=== PATIENT | male | born 1940 | race Caucasian/White ===

== ENCOUNTER 2020-07-21 11:53 | Outpatient (REF) | payer MEDICARE, SELFPAY ==
[2020-07-21 14:36] LABS: MANUAL DIFF FLAG NO
[2020-07-21 14:40] LABS: Basophils Percent Auto 0.8 % (0-2); Eosinophils Absolute Auto 0.1 X10*3/uL (0.0-0.4); Eosinophils Percent Auto 2.4 % (0-4); Hematocrit 42.6 % (42-52); Hemoglobin 14.3 g/dl (14.0-18.0); Imm Gran Abs Auto 0.03 X10*3/uL (0.00-0.03); Imm Gran Pct Auto 0.6 % (0.0-0.4); Immature Retic Fraction 14.2 % (2.3-13.4); Lymphocytes Absolute Auto 1.8 X10*3/uL (1.2-4.9); Lymphocytes Percent Auto 35.7 % (20-40); Mean Corpuscular HGB Conc 33.6 g/dl (31.0-36.0); Mean Corpuscular Hemoglobin 32.9 pg (27.0-33.0); Mean Corpuscular Volume 98.2 fL (80-98); Mean Platelet Volume 11.1 fL (9.4-12.4); Monocytes Absolute Auto 0.4 X10*3/uL (0.1-1.2); Monocytes Percent Auto 7.3 % (2-11); Neutrophils Absolute Auto 2.7 X10*3/uL (2.0-8.3); Neutrophils Percent Auto 53.2 % (45-73); Platelet Count 184 X10*3/uL (160-400); Red Blood Count 4.34 X10*6/uL (4.60-5.80); Red Cell Distribution Width 17.8 % (11.0-16.0); Reticulocyte Percent 1.5 % (0.5-1.8); Reticulocytes Absolute 0.064 X10*6/uL (0.026-0.095); White Blood Count 5.1 X10*3/uL (4.8-10.8)
[2020-07-21 15:19] LABS: Alanine Aminotransferase 23 U/L (0-40); Albumin Level 4.6 g/dL (3.5-5.0); Alkaline Phosphatase 60 U/L (39-117); Anion Gap 13 (12-20); Aspartate Amino Transferase 19 U/L (5-37); Bilirubin Total 0.8 mg/dL (0.0-1.0); Blood Urea Nitrogen 21 mg/dL (9-16); Calcium 9.3 mg/dL (8.4-10.2); Carbon Dioxide 32 mmol/L (22-29); Chloride 99 mmol/L (96-108); Cholesterol 164 mg/dL; Estimated Glomerular Filt Rate > 60; Glucose Fasting 96 mg/dL (60-99); HDL Cholesterol 37 mg/dL; Iron 65 mcg/dL (45-160); LDL Cholesterol Calculated 103 mg/dl; Percent Iron Saturation 18 % (15-50); Phosphorus 2.9 mg/dL (2.7-4.5); Potassium 4.2 mmol/l (3.3-5.1); Sodium 140 mmol/L (135-145); Total Iron Binding Capacity 352 mcg/dL (228-428); Total Protein 7.7 g/dL (6.5-8.0); Triglycerides 124 mg/dL; Unsaturated Iron Binding 287 ug/dL
[2020-07-21 15:37] LABS: Vitamin B12 731 pg/mL (200-900)
[2020-07-21 15:51] LABS: Ferritin 102 ng/mL (20-250); PSA,Total (Free>4and<10) < 0.05 ng/mL (0.00-4.00); T4 Thyroxine 7.2 ug/dL (4.5-12.0)
[2020-07-22 08:36] LABS: HBsAGNum1 0.16 S/CO (0.00-0.99); Hepatitis B Surface Antigen Negative (Negative)
[2020-07-22 09:27] LABS: HBS Num1 0.43 mIU/mL (0-7.99); HBc Num1 0.23 S/CO (0.00-0.79); Hepatitis B Core Antibody Nonreactive (Nonreactive); ~HepC Num1 0.15 S/CO (0.00-0.79); ~Hepatitis B Surface Antibody NONREACTIVE (Nonreactive); ~Hepatitis C Antibody Nonreactive (Nonreactive)
[2020-07-29 00:26] LABS: PSA, Ultra Sensitive <0.02 ng/mL
== END 2020-07-21 11:54 | disposition home or self-care (01) ==
LOC: HO.10HDL 11:53
PROVIDERS: Absent Provider Urology; Visit Provider Internal Medicine
DX: K21.9 Gastro-esophageal reflux disease without esophagitis (principal); F41.9 Anxiety disorder, unspecified; I10 Essential (primary) hypertension; K22.70 Barrett's esophagus without dysplasia; D64.9 Anemia, unspecified; R94.5 Abnormal results of liver function studies
CPT/HCPCS: 36415; 80053; 80061; 82607; 82728; 82746; 83540; 83735; 84100; 84153; 84436; 85025; 85045; 86704; 86706; 86803; 87340

== ENCOUNTER 2021-07-22 11:17 | Outpatient (REF) | payer MEDICARE, SELFPAY ==
[2021-07-22 14:02] LABS: MANUAL DIFF FLAG NO
[2021-07-22 14:05] LABS: Basophils Absolute Auto 0.1 X10*3/uL (0.0-0.2); Basophils Percent Auto 0.9 % (0-2); Eosinophils Absolute Auto 0.2 X10*3/uL (0.0-0.4); Eosinophils Percent Auto 3.1 % (0-4); Hematocrit 40.7 % (42-52); Hemoglobin 13.5 g/dl (14.0-18.0); Imm Gran Abs Auto 0.01 X10*3/uL (0.00-0.03); Imm Gran Pct Auto 0.2 % (0.0-0.4); Lymphocytes Absolute Auto 2.1 X10*3/uL (1.2-4.9); Mean Corpuscular HGB Conc 33.2 g/dl (31.0-36.0); Mean Corpuscular Hemoglobin 32.7 pg (27.0-33.0); Mean Corpuscular Volume 98.5 fL (80-98); Mean Platelet Volume 10.6 fL (9.4-12.4); Monocytes Absolute Auto 0.5 X10*3/uL (0.1-1.2); Monocytes Percent Auto 8.3 % (2-11); Neutrophils Absolute Auto 2.7 X10*3/uL (2.0-8.3); Neutrophils Percent Auto 49.5 % (45-73); Platelet Count 192 X10*3/uL (160-400); Red Blood Count 4.13 X10*6/uL (4.60-5.80); Red Cell Distribution Width 17.4 % (11.0-16.0); White Blood Count 5.4 X10*3/uL (4.8-10.8)
[2021-07-22 14:44] LABS: Alanine Aminotransferase 28 U/L (0-40); Albumin Level 4.5 g/dL (3.5-5.0); Alkaline Phosphatase 59 U/L (39-117); Anion Gap 15 (12-20); Aspartate Amino Transferase 24 U/L (5-37); Bilirubin Total 0.8 mg/dL (0.0-1.0); Blood Urea Nitrogen 19 mg/dL (9-16); Calcium 9.2 mg/dL (8.4-10.2); Carbon Dioxide 29 mmol/L (22-29); Chloride 99 mmol/L (96-108); Cholesterol 172 mg/dL; Estimated Glomerular Filt Rate > 60; Glucose Random 96 mg/dL (60-115); HDL Cholesterol 38 mg/dL; LDL Cholesterol Calculated 110 mg/dl; Potassium 3.3 mmol/L (3.3-5.1); Sodium 140 mmol/L (135-145); Total Protein 7.6 g/dL (6.5-8.0); Triglycerides 121 mg/dL
[2021-07-22 14:56] LABS: Folate > 20.0 ng/mL (> or = 4.0); Vitamin B12 880 pg/mL (200-900)
[2021-07-22 15:07] LABS: Free T4 (Free Thyroxine) 1.06 ng/dL (0.71-1.85); Thyroid Stimulating Hormone 2.01 uIU/mL (0.32-4.0); Vitamin D 25-OH Total 53.8 ng/mL (>30)
[2021-07-27 18:01] LABS: PSA, Ultra Sensitive <0.02 ng/mL
== END 2021-07-22 11:18 | disposition home or self-care (01) ==
LOC: HO.10HDL 11:17
PROVIDERS: Absent Provider Urology; Visit Provider Internal Medicine
DX: Z12.5 Encounter for screening for malignant neoplasm of prostate (principal); E78.00 Pure hypercholesterolemia, unspecified; K22.70 Barrett's esophagus without dysplasia; Z85.46 Personal history of malignant neoplasm of prostate
CPT/HCPCS: 36415; 80053; 80061; 82306; 82607; 82746; 83735; 84153; 84439; 84443; 85025

== ENCOUNTER 2022-02-22 19:13 | Emergency (ER) | payer MEDICARE, SELFPAY ==
--- NOTE | ~2022-02-22 | CT_ITS ---
EXAMINATION: CT ABDOMEN AND PELVIS WITHOUT CONTRAST CLINICAL INFORMATION: Abdominal pain, question diverticulitis COMPARISON: None TECHNIQUE: Multidetector volumetric imaging was performed from the superior aspect of the liver through the pubic symphysis. Sagittal and coronal reformatted images were obtained on the technologist's workstation. This CT examination was performed using dose optimization techniques as appropriate, variously including the following: *Automated exposure control *Adjustment of mA and/or kV according to patient size (this includes techniques or standardized protocols for targeted exams where dose is matched to indication/reason for exam; i.e. extremities or head) *Use of iterative reconstruction technique DLP: 642 mGy-cm FINDINGS: LUNG BASES: The visualized lung bases are unremarkable. LIVER, GALLBLADDER, AND BILIARY TREE: There is mild hypoattenuation of the liver suggesting steatosis. No intrahepatic biliary ductal dilatation. The gallbladder is unremarkable with no evidence of radiopaque gallstones, gallbladder wall thickening, or obvious pericholecystic inflammatory changes. PANCREAS: Unremarkable. SPLEEN: Unremarkable. ADRENAL GLANDS: Unremarkable. KIDNEYS AND URETERS: No hydronephrosis or obstructing calculus bilaterally. There are a few scattered tiny bilateral renal calculi. Mildly hyperdense exophytic lesion noted off the right upper pole measuring approximately 1.5 cm, not cystic by CT criteria. There is a mixed hyperdense and hypodense lesion off the posterior right kidney measuring 2.1 cm which is at least partially cystic. Subcentimeter lesion off the lower left kidney measures greater than simple fluid density. BLADDER: Unremarkable. GASTROINTESTINAL TRACT: No evidence of bowel obstruction. There is colonic diverticulosis with focal wall thickening and surrounding stranding in the proximal sigmoid colon, most consistent with diverticulitis. No pericolonic abscess or free air is seen. The appendix is unremarkable. No free fluid identified. ABDOMINAL WALL: Small fat-containing left inguinal hernia. LYMPH NODES: Normal. VASCULAR: There is atherosclerotic calcification along the aorta and iliac arteries. PELVIC VISCERA: Unremarkable. OSSEOUS STRUCTURES: Scattered degenerative changes are present in the spine. CT/CT abdomen pelvis wo con IMPRESSION: 1. Diverticulitis of the proximal sigmoid colon. No pericolonic abscess or free air identified. Correlation with recent or followup colonoscopy is advised to exclude an underlying mass lesion. 2. Few renal lesions as described above, not cystic by CT criteria. These may reflect proteinaceous/hemorrhagic cysts, and evaluation with nonemergent renal protocol MRI is advised to exclude underlying mass.
[2022-02-22 19:22] VITALS: BP 142/81; PULSE 102; RESP 18; TEMP 36.9; O2SAT 98; BMI 29.6
[2022-02-22 19:34] LABS: MANUAL DIFF FLAG NO
[2022-02-22 19:36] LABS: Basophils Absolute Auto 0.1 X10*3/uL (0.0-0.2); Basophils Percent Auto 0.4 % (0-2); Eosinophils Absolute Auto 0.2 X10*3/uL (0.0-0.4); Eosinophils Percent Auto 1.2 % (0-4); Hematocrit 39.7 % (42.0-52.0); Hemoglobin 13.1 g/dl (14.0-18.0); Imm Gran Abs Auto 0.05 X10*3/uL (0.00-0.03); Imm Gran Pct Auto 0.4 % (0.0-0.4); Lymphocytes Absolute Auto 2.7 X10*3/uL (1.2-4.9); Lymphocytes Percent Auto 20.7 % (20-40); Mean Corpuscular Hemoglobin 33.2 pg (27.0-33.0); Mean Corpuscular Volume 100.5 fL (80.0-98.0); Monocytes Percent Auto 7.8 % (2-11); Neutrophils Absolute Auto 8.9 x10*3/uL (2.0-8.3); Neutrophils Percent Auto 69.5 % (45-73); Platelet Count 227 X10*3/uL (160-400); Red Blood Count 3.95 X10*6/uL (4.60-5.80); Red Cell Distribution Width 18.2 % (11.0-16.0); White Blood Count 12.9 X10*3/uL (4.8-10.8)
[2022-02-22 19:52] LABS: Anion Gap 16 (12-20); Blood Urea Nitrogen 17 mg/dL (9-16); Calcium 9.6 mg/dL (8.4-10.2); Carbon Dioxide 26 mmol/L (22-29); Chloride 103 mmol/L (96-108); Creatinine Clr Calc Pharmacy 59.9; Estimated Glomerular Filt Rate > 60; Glucose Random 103 mg/dL (60-115); Lipase 42 U/L (8-78); Potassium 3.5 mmol/L (3.3-5.1); Sodium 141 mmol/L (135-145)
[2022-02-23 03:05] VITALS: BP 142/73; PULSE 82; RESP 16; O2SAT 97
--- NOTE | 2022-02-23 04:51 | ED_ITS ---
HPI - Abdominal Pain General Chief Complaint: Abdominal Pain Stated Complaint: CT scan and blood test requested from PC Time Seen by Provider: 02/23/22 04:13 Source: patient and family Mode of arrival: ambulatory History of Present Illness HPI narrative: 81-year-old male with history of hypertension and prior diverticulitis presents with increasing lower abdominal pain that is crampy in nature but has not been associated with nausea, vomiting, fever, chills and patient states that feels just like his last episode of diverticulitis. He denies any urinary pain/burning/frequency. Related Data Home Medications Medication Instructions Recorded Confirmed ascorbate calcium (vitamin C) 500 500 mg PO DAILY 08/03/20 02/03/22 mg tablet cholecalciferol (vitamin D3) 25 25 mcg PO DAILY 08/03/20 02/03/22 mcg (1,000 unit) capsule ferrous sulfate 325 mg (65 mg 325 mg PO DAILY 08/03/20 02/03/22 iron) tablet (Feosol) magnesium oxide 500 mg capsule 500 mg PO DAILY 08/03/20 02/03/22 vit C,E,zinc,copper-uwbak7e 250 1 cap PO DAILY 08/03/20 02/03/22 mg-lutein 5 mg-zeaxanthin 1 mg capsule (Ocuvite Adult 50 Plus) vitamin B complex 1 tab PO DAILY 08/03/20 02/03/22 Previous Rx's Medication Instructions Recorded lisinopril 20 1 tab PO DAILY 90 Days #90 tab 08/03/21 mg-hydrochlorothiazide 25 mg tablet lisinopril 20 mg tablet 20 mg PO DAILY 90 Days #90 tab 10/22/21 omeprazole 20 mg capsule,delayed 20 mg PO QAM #90 cap 10/22/21 release lorazepam 0.5 mg tablet 0.5 mg PO BEDTIME PRN 90 Days #30 02/22/22 tab amoxicillin 875 mg-potassium 1 tab PO Q12H 10 Days #20 tab 02/23/22 clavulanate 125 mg tablet Allergies Allergy/AdvReac Type Severity Reaction Status Date / Time sulfamethoxazole Allergy Intermediate Anxiety Verified 02/22/22 19:22 [From Bactrim] trimethoprim [From Bactrim] Allergy Intermediate Anxiety Verified 02/22/22 19:22 Sulfa (Sulfonamide Allergy Unknown Unknown Verified 02/22/22 19:21 Antibiotics) Review of Systems Review of Systems Pertinent positives and negatives as stated in HPI 10 point review of systems is otherwise negative. [facility] Past Medical History Source: nursing notes reviewed Medical History Anemia Anxiety Sandoval's esophagus Finger fracture, right GERD (gastroesophageal reflux disease) History of renal calculi Hypertension Prostate cancer Surgical History History of prostatectomy History of tonsillectomy Social History Social History Housing: House Alcohol intake: current Patient Tobacco Use Status: Former Tobacco user Tobacco use type: Cigarette Years Smoked: quit 1999 e-Cigarette/Vaping Use: Never Used Second Hand Smoke Exposure: No Advance Directives: No Current occupational status: retired Physical Exam ED Vital Signs: Vital Signs - 24 hr 02/22/22 19:22 02/23/22 03:05 Temperature 98.4 F Pulse Rate 102 H 82 Respiratory Rate 18 16 Blood Pressure 142/81 H 142/73 H Pulse Oximetry 98 97 BMI result Body Mass Index 29.6 VITAL SIGNS: Reviewed. GENERAL: Well developed, well nourished, in no acute distress. HEAD: Normocephalic/atraumatic EYES: PERRLA, EOMI EARS: Ext canals without abnormality OROPHARYNX: no oral lesions noted, posterior pharynx clear LUNGS: Normal breath sounds. No adventitious sounds or accessory muscle use. SpO2<98> CARDIOVASCULAR: Regular rate and rhythm without noted murmurs ABDOMEN: Soft, lower abdominal discomfort without rebound, non-distended with bowel sounds. MUSCULOSKELETAL: No tenderness, deformities, or effusions noted on gross i nspection. EXTREMITIES: No cyanosis, clubbing or edema. SKIN: Inspection of the skin reveals no rashes NEUROLOGIC: Alert and oriented x 4. Strength and sensation to light touch were grossly intact x 4. Course Course Course Narrative: 81-year-old male with history and clinical presentation suggestive of possible renal colic, diverticulitis, UTI. Review of all investigations consistent with diverticulitis. Patient received initial antibiotics here in the emergency room and then was discharged home with remaining course and instructions to follow-up with his primary care provider. MDM - Abdominal Pain Lab Data Result diagrams: 02/22/22 19:28 02/22/22 19:29 Labs: Lab Results 02/22/22 02/22/22 Range/Units 19:28 19:29 WBC 12.9 H (4.8-10.8) X10*3/uL RBC 3.95 L (4.60-5.80) X10*6/uL Hgb 13.1 L (14.0-18.0) g/dl Hct 39.7 L (42.0-52.0) % MCV 100.5 H (80.0-98.0) fL MCH 33.2 H (27.0-33.0) pg MCHC 33.0 (31.0-36.0) g/dl RDW 18.2 H (11.0-16.0) % Plt Count 227 (160-400) X10*3/uL MPV 10.0 (9.4-12.4) fL Immature Gran % (Auto) 0.4 (0.0-0.4) % Neut % (Auto) 69.5 (45-73) % Lymph % (Auto) 20.7 (20-40) % [place] % (Auto) 7.8 (2-11) % Eos % (Auto) 1.2 (0-4) % Baso % (Auto) 0.4 (0-2) % Lymph # (Auto) 2.7 (1.2-4.9) X10*3/uL [place] # (Auto) 1.0 (0.1-1.2) X10*3/uL Eos # (Auto) 0.2 (0.0-0.4) X10*3/uL Baso # (Auto) 0.1 (0.0-0.2) X10*3/uL Abs Immat Gran (auto) 0.05 H (0.00-0.03) X10*3/uL Absolute Neuts (auto) 8.9 H (2.0-8.3) x10*3/uL Absolute Nucleated RBC 0.000 (0.0-0.012) X10*3/uL Nucleated RBC % (auto) 0.0 (0.0-0.2) /100WBC Sodium 141 (135-145) mmol/L Potassium 3.5 (3.3-5.1) mmol/L Chloride 103 (96-108) mmol/L Carbon Dioxide 26 (22-29) mmol/L Anion Gap 16 (12-20) BUN 17 H (9-16) mg/dL Creatinine 1.08 (0.5-1.4) mg/dL Estim Creat Clear Calc 59.9 Estimated GFR > 60 Random Glucose 103 (60-115) mg/dL Calcium 9.6 (8.4-10.2) mg/dL Lipase 42 (8-78) U/L Discharge Plan Discharge Clinical Impression: Diverticulitis, Hypertension Patient Disposition: Home, Self-Care Instructions: Diverticulitis (ED), Diverticulitis Diet (ED), DASH Eating Plan (ED) Additional Instructions: 1. Resume all home medications as prescribed. 2. Complete the entire course of antibiotics as prescribed, you have also been provided with antinause medication. 3. Follow-up with your primary care provider in the next 2-3 days for re- evaluation and remember that you will need to follow-up with GI in 6 weeks after resolution of your diverticulitis. Return to the ER for worsening symptoms. Prescriptions: New amoxicillin-pot clavulanate 875-125 mg tablet 1 tab PO Q12H 10 Days Qty: 20 0RF No Action omeprazole 20 mg capsule,delayed release(DR/EC) 20 mg PO QAM Qty: 90 1RF lisinopril 20 mg tablet 20 mg PO DAILY 90 Days Qty: 90 3RF lorazepam 0.5 mg tablet 0.5 mg PO BEDTIME PRN (Reason: anxiety) 90 Days Qty: 30 1RF lisinopril-hydrochlorothiazide 20-25 mg tablet 1 tab PO DAILY 90 Days Qty: 90 3RF cholecalciferol (vitamin D3) 25 mcg (1,000 unit) capsule 25 mcg PO DAILY 0RF ascorbate calcium (vitamin C) 500 mg tablet 500 mg PO DAILY 0RF ferrous sulfate [Feosol] 325 mg (65 mg iron) tablet 325 mg PO DAILY 0RF magnesium oxide 500 mg capsule 500 mg PO DAILY 0RF Ocuvite Adult 50 Plus 250-5-1 mg capsule 1 cap PO DAILY 0RF vitamin B complex Tablet 1 tab PO DAILY 0RF Referrals: Tor Song [Primary Care Provider] -
[2022-02-23 06:00] VITALS: BP 127/70; PULSE 77; RESP 16; TEMP 36.7; O2SAT 98
[2022-02-23] MEDS: Acetaminophen 325 MG TABLET 975 MG PO (06:03)
[2022-02-23] MEDS: Amoxicillin/Potassium Clav 875 MG TABLET PO (06:03)
[2022-02-23] MEDS: Ketorolac Tromethamine 15 MG/ML VIAL IM (06:04)
== END 2022-02-23 06:09 | disposition home or self-care (01) ==
PROVIDERS: Emergency Provider Student in an Organized Health Care Education/Training Program; PCP Internal Medicine
DX: K57.92 Diverticulitis of intestine, part unspecified, without perforation or abscess without bleeding (principal); I10 Essential (primary) hypertension
CPT/HCPCS: 36415; 74176; 80048; 83690; 85025; 96372; 99283; 99284; J1885

== ENCOUNTER 2022-06-07 12:43 | Outpatient (REF) | payer MEDICARE, SELFPAY ==
--- NOTE | ~2022-06-07 | MR_ITS ---
EXAMINATION: MRI ABDOMEN WITH AND WITHOUT CONTRAST CLINICAL INFORMATION: Further evaluation of renal lesions. COMPARISON: CT abdomen/pelvis 02/23/2022. TECHNIQUE: Multiple routine MRI sequences through the abdomen were obtained before and after the uneventful administration of 9 mL Gadavist gadolinium-based IV contrast. FINDINGS: LUNG BASES: Lung bases are clear. LIVER: There is signal loss in the opposed phase dual echo images suggesting the presence of hepatic steatosis. Otherwise, the liver is normal in size and shape. No focal liver lesions are noted. GALLBLADDER AND BILIARY TREE: Gallbladder normal. No intrahepatic or extrahepatic biliary ductal dilation. SPLEEN: Normal. Normal size. No focal lesion. PANCREAS: Normal. ADRENAL GLANDS: Normal. No adrenal mass. KIDNEYS AND URETERS: Symmetric nephrograms. No hydronephrosis. No perinephric fat stranding. There are multiple T2 bright avascular bilateral simple cysts for which no imaging follow-up is recommended. In the upper right kidney there is a 1.7 cm well-circumscribed homogeneously T1 bright proteinaceous/hemorrhagic cyst, (11:24). There are couple of additional smaller homogeneously T1 bright proteinaceous/hemorrhagic cysts along the posterior surface of the upper to mid right kidney (11:28 and 11:35). In the posteromedial mid right kidney, there is a well-defined 2.2 cm cystic appearing observation with heterogeneous T1 content, more hyperintense anteriorly (11:45), a thin internal septation and questionable thickening of the posterior wall measuring up to 0.3 cm in thickness (102:51). In the lower left kidney, there is a 0.9 cm homogeneously T1 bright hemorrhagic/proteinaceous cyst (11:63). In the posterior lower left kidney there is a 1.2 cm low T2 signal observation (4:18), with slight homogeneous T1 hyperintensity and no definite enhancement, likely representing as well a proteinaceous/hemorrhagic cyst. GASTROINTESTINAL: The imaged bowel is within normal limits. LYMPHOVASCULAR STRUCTURES: Normal caliber aorta. IVC patent. No pathologically enlarged abdominal or retroperitoneal lymphadenopathy by short axis size criteria. OSSEOUS STRUCTURES: No acute or suspicious osseous abnormalities. Degenerative changes of the spine. MR/MR kidney wo/w con IMPRESSION: In the posteromedial surface of the mid right kidney there is a cystic-appearing observation with heterogeneous T1 bright content and some equivocal thickening of the posterior wall but no measurable enhancing components. This would be classified as a Bosniak 2F lesion and a follow-up MRI of the abdomen is recommended in 6-12 months to reassess. Other renal lesions are classified as Bosniak 1 and Bosniak 2 cyst for which no imaging follow-up is recommended. Hepatic steatosis.
== END 2022-06-07 12:44 | disposition home or self-care (01) ==
LOC: HO.MRI 12:43
PROVIDERS: Visit Provider Internal Medicine
DX: N28.9 Disorder of kidney and ureter, unspecified (principal)
CPT/HCPCS: 74181; A9585

== ENCOUNTER 2022-08-10 07:23 | Day surgery (SDC) | payer MEDICARE, SELFPAY ==
--- NOTE | 2022-08-09 13:46 | P.CONAN_ITS ---
Documented by User: Dolores Harrison NP 08/09/22 13:47 HPI - Anesthesia Eval Consult details Narrative: 82yo M for Colonoscopy PMFSH Active Problems Active Problems: All Active Problems (Updated 06/16/22 @ 19:00 by Ruby Luna MD) Renal lesion (Acute) Diverticulitis (Acute) Prostate cancer (Acute) Anemia (Acute) Carpal tunnel syndrome (Acute) Medicare annual wellness visit, subsequent (Acute) Hand numbness (Acute) Generalized anxiety disorder (Acute) Hypokalemia (Acute) Sciatic leg pain (Acute) Fatty liver (Acute) Hypertension (Acute) Sandoval's esophagus (Acute) GERD (gastroesophageal reflux disease) (Acute) Past Medical History Medical History Anemia Anxiety Finger fracture, right History of renal calculi Surgical History Surgical History History of prostatectomy History of tonsillectomy Social History Social History Housing: House Alcohol intake: current Patient Tobacco Use Status: Former Tobacco user Quit Date: 20 years ago Tobacco use type: Cigarette Years Smoked: quit 1999 e-Cigarette/Vaping Use: Never Used Second Hand Smoke Exposure: No Use of substances other than those prescribed or required for medical reasons: Yes Substance Use Type Other:: cbd gummies for sleep - medical card Are you DNR?: No Advance Directives: No Advance Directives Information Provided: Yes Current occupational status: retired Cognitive needs: No Hearing needs: No Vision needs: No Meds Allergies Allergy/AdvReac Type Severity Reaction Status Date / Time sulfamethoxazole Allergy Intermediate Anxiety Verified 03/21/22 15:44 [From Bactrim] trimethoprim [From Bactrim] Allergy Intermediate Anxiety Verified 03/21/22 15:44 Sulfa (Sulfonamide Allergy Unknown Unknown Verified 03/21/22 15:44 Antibiotics) Home Medications Medication Instructions Recorded Confirmed Last Taken Type ascorbate calcium (vitamin C) 500 500 mg PO DAILY 08/03/20 03/21/22 Unknown History mg tablet cholecalciferol (vitamin D3) 25 25 mcg PO DAILY 08/03/20 03/21/22 Unknown History mcg (1,000 unit) capsule ferrous sulfate 325 mg (65 mg 325 mg PO DAILY 08/03/20 03/21/22 Unknown History iron) tablet (Feosol) magnesium oxide 500 mg capsule 500 mg PO DAILY 08/03/20 03/21/22 Unknown History vit C,E,zinc,copper-[id number] 250 1 cap PO DAILY 08/03/20 03/21/22 Unknown History mg-lutein 5 mg-zeaxanthin 1 mg capsule (Ocuvite Adult 50 Plus) vitamin B complex 1 tab PO DAILY 08/03/20 03/21/22 Unknown History Exam Exam Date and Time: August 09, 2022 134 Pertinent Lab Results Pertinent Lab Results: Laboratory Tests 02/22/22 02/22/22 19:28 19:29 WBC 12.9 H Hgb 13.1 L Hct 39.7 L Plt Count 227 Sodium 141 Potassium 3.5 Chloride 103 Carbon Dioxide 26 BUN 17 H Creatinine 1.08 Assessment and Plan Assessment Anesthesia Assessment: Chart Reviewed Documented by User: Taye Marte MD 08/10/22 08:40 [facility] Past Medical History Medical History Anemia Anxiety Finger fracture, right History of renal calculi Family History Family history of problems with anesthesia: No Surgical History Surgical History History of prostatectomy History of tonsillectomy History of Problems with Anesthesia: No Social History Social History Housing: House Alcohol intake: current Patient Tobacco Use Status: Former Tobacco user Quit Date: 20 years ago Tobacco use type: Cigarette Years Smoked: quit 1999 e-Cigarette/Vaping Use: Never Used Second Hand Smoke Exposure: No Use of substances other than those prescribed or required for medical reasons: Yes Substance Use Type Other:: cbd gummies for sleep - medical card Are you DNR?: No Advance Directives: No Advance Directives Information Provided: Yes Current occupational status: retired Cognitive needs: No Hearing needs: No Vision needs: No Meds Allergies Allergy/AdvReac Type Severity Reaction Status Date / Time sulfamethoxazole Allergy Intermediate Anxiety Verified 03/21/22 15:44 [From Bactrim] trimethoprim [From Bactrim] Allergy Intermediate Anxiety Verified 03/21/22 15:44 Sulfa (Sulfonamide Allergy Unknown Unknown Verified 03/21/22 15:44 Antibiotics) Home Medications Medication Instructions Recorded Confirmed Last Taken Type ascorbate calcium (vitamin C) 500 500 mg PO DAILY 08/03/20 03/21/22 Unknown History mg tablet cholecalciferol (vitamin D3) 25 25 mcg PO DAILY 08/03/20 03/21/22 Unknown History mcg (1,000 unit) capsule ferrous sulfate 325 mg (65 mg 325 mg PO DAILY 08/03/20 03/21/22 Unknown History iron) tablet (Feosol) magnesium oxide 500 mg capsule 500 mg PO DAILY 08/03/20 03/21/22 Unknown History vit C,E,zinc,copper-gfyam4s 250 1 cap PO DAILY 08/03/20 03/21/22 Unknown History mg-lutein 5 mg-zeaxanthin 1 mg capsule (Ocuvite Adult 50 Plus) vitamin B complex 1 tab PO DAILY 08/03/20 03/21/22 Unknown History Exam Airway Mallampati Class: I TM Dist: >3cm Neck ROM: Full Loose/Missing/Broken Teeth: No Heart: rrr Lungs: clear Assessment and Plan Final Anesthetic Review Family History of Problems with Anesthesia: No History of Problems with Anesthesia: No NPO: Yes ASA Class: III Final Preanesthetic Review: No Changes in Pt Med Stat, Meds/Allgs Chart Reviewed, Consent Obtained/Reviewed and Anes Risks/Benef Reviewed Patient Risk: Intermediate Procedure Risk: Low Anesthetic Plan Anesthetic Plan: MAC: Disposition: Standard PACU
[2022-08-10 07:54] VITALS: BMI 30.4
[2022-08-10 08:04] VITALS: BP 166/87; PULSE 86; RESP 18; TEMP 36.8; O2SAT 96
[2022-08-10] MEDS: Lactated Ringers 1,000 ML 100 ML IVCONT (08:22)
[2022-08-10 09:30] VITALS: BP 92/56; PULSE 80; RESP 16; TEMP 36.7; O2SAT 94
--- NOTE | 2022-08-10 09:31 | PM.OP ---
Brief Operative Note Date of Service: 08/10/22 Pre-op diagnosis: Abnormal CT of colon Post-op diagnosis: other (AVM's, Polyp, Diverticulosis) Procedure: Colonoscopy to the cecum with bx/removal of polyp Surgeon: Tor Song Anesthesia: MAC Was an Co Founder And President used for this Procedure?: No Estimated blood loss (mL): 2.0 Pathology: other (A. Ascending colon polyp) Condition: stable Disposition: PACU
[2022-08-10 09:51] VITALS: BP 111/75; PULSE 76; RESP 18; TEMP 36.5; O2SAT 96
--- NOTE | 2022-08-10 10:00 | OP_ITS ---
SURGEON: Tor Song MD INDICATIONS: The patient presents for evaluation of previous history of diverticulitis and abnormal CT scan of colon. Full consent has been obtained from him for this, including risks of bleeding and perforation. PREOPERATIVE DIAGNOSIS: Abnormal CT scan of colon. POSTOPERATIVE DIAGNOSIS: PROCEDURE PERFORMED: Colonoscopy to cecum with biopsy and removal of polyp. ESTIMATED BLOOD LOSS: COMPLICATIONS: ANESTHESIA: Monitored anesthesia care. ASSISTANTS: SPECIMENS: POSTOPERATIVE DIAGNOSES: Abnormal CT scan of colon, colon polyp, diverticulosis, angiodysplasias, internal hemorrhoids. DESCRIPTION OF PROCEDURE: The patient was placed in the left lateral decubitus position. The digital rectal exam revealed no abnormalities. The Olympus video pediatric colonoscope was entered into the rectum and advanced easily to the cecum. Once in the cecum, I did identify a cecal pouch in the appendiceal orifice and a normal-appearing ileocecal valve. The entire cecum was well visualized. There were multiple nonbleeding angiodysplasias in the cecum, which had been seen on previous exams. The remainder of the cecum appeared normal. The scope was then slowly withdrawn assessing all mucosal surfaces carefully. Preparation was excellent. In the ascending colon were nonbleeding angiodysplasias as well. There was also an approximately 4 mm polyp, which was biopsied and completely removed with a cold biopsy forceps. I did not visualize any other polyps, colitis, or angiodysplasia. There was a moderate amount of sigmoid diverticulosis. In the rectum, scope was retroflexed visualizing internal hemorrhoids, but no other pathology. The rectal mucosa appeared normal. The scope was straightened and withdrawn from the patient. He tolerated the procedure well and was returned to the recovery area in stable condition. IMPRESSION: 1. Small colon polyp. 2. Angiodysplasias. 3. Diverticulosis. 4. Internal hemorrhoids. PLAN: The results of the pathology will be checked. Given these findings and his age, I do not think, he would need any further colonoscopies from a screening standpoint. He was advised to resume his iron. He will continue his omeprazole. If things remain stable, he will see me on a p.r.n. basis. This has been discussed with his . MD TEMO Uribe/YANDELL / [id number]
== END 2022-08-10 10:19 | disposition home or self-care (01) ==
PROVIDERS: PCP Internal Medicine; Visit Provider Internal Medicine
PROC: 0DJD8ZZ Inspection of Lower Intestinal Tract, Via Natural or Artificial Opening Endoscopic (ICD-10-PCS; CPT 45378; principal; 2022-08-10 08:30)
DX: Z87.19 Personal history of other diseases of the digestive system (principal); K55.20 Angiodysplasia of colon without hemorrhage; D12.2 Benign neoplasm of ascending colon; K57.30 Diverticulosis of large intestine without perforation or abscess without bleeding; K64.8 Other hemorrhoids; K21.9 Gastro-esophageal reflux disease without esophagitis; K22.70 Barrett's esophagus without dysplasia; D64.9 Anemia, unspecified; I10 Essential (primary) hypertension; N28.9 Disorder of kidney and ureter, unspecified; Z79.899 Other long term (current) drug therapy; Z87.442 Personal history of urinary calculi; Z85.46 Personal history of malignant neoplasm of prostate; Z87.891 Personal history of nicotine dependence
CPT/HCPCS: 45380; 88305

== ENCOUNTER 2022-08-12 10:00 | Outpatient (REF) | payer MEDICARE, SELFPAY ==
[2022-08-12 10:33] LABS: MANUAL DIFF FLAG NO
[2022-08-12 10:43] LABS: Basophils Absolute Auto 0.1 X10*3/uL (0.0-0.2); Basophils Percent Auto 1.1 % (0-2); Eosinophils Absolute Auto 0.2 X10*3/uL (0.0-0.4); Eosinophils Percent Auto 3.4 % (0-4); Hematocrit 39.8 % (42.0-52.0); Hemoglobin 13.1 g/dl (14.0-18.0); Imm Gran Abs Auto 0.02 X10*3/uL (0.00-0.03); Imm Gran Pct Auto 0.4 % (0.0-0.4); Immature Retic Fraction 15.2 % (2.3-13.4); Lymphocytes Absolute Auto 1.7 X10*3/uL (1.2-4.9); Lymphocytes Percent Auto 31.1 % (20-40); Mean Corpuscular HGB Conc 32.9 g/dl (31.0-36.0); Mean Corpuscular Hemoglobin 32.2 pg (27.0-33.0); Mean Corpuscular Volume 97.8 fL (80.0-98.0); Mean Platelet Volume 9.6 fL (9.4-12.4); Monocytes Absolute Auto 0.4 X10*3/uL (0.1-1.2); Monocytes Percent Auto 7.3 % (2-11); Neutrophils Percent Auto 56.7 % (45-73); Platelet Count 172 X10*3/uL (160-400); Red Blood Count 4.07 X10*6/uL (4.60-5.80); Red Cell Distribution Width 16.9 % (11.0-16.0); Retic HGB Equivalent 32.5 pg (30.0-35.0); Reticulocyte Percent 1.4 % (0.5-1.8); Reticulocytes Absolute 0.055 X10*6/uL (0.026-0.095); White Blood Count 5.3 X10*3/uL (4.8-10.8)
[2022-08-12 12:52] LABS: Alanine Aminotransferase 33 U/L (0-40); Alkaline Phosphatase 67 U/L (39-117); Anion Gap 16 (12-20); Aspartate Amino Transferase 20 U/L (5-37); Bilirubin Total 0.3 mg/dL (0.0-1.0); Blood Urea Nitrogen 18 mg/dL (9-16); Calcium 8.9 mg/dL (8.4-10.2); Carbon Dioxide 26 mmol/L (22-29); Chloride 105 mmol/L (96-108); Cholesterol 164 mg/dL; Estimated Glomerular Filt Rate > 60; Glucose Random 90 mg/dL (60-115); HDL Cholesterol 34 mg/dL; Iron 40 mcg/dL (45-160); LDL Cholesterol Calculated 112 mg/dl; Percent Iron Saturation 11 % (15-50); Potassium 3.7 mmol/L (3.3-5.1); Sodium 143 mmol/L (135-145); Total Iron Binding Capacity 366 mcg/dL (228-428); Total Protein 7.1 g/dL (6.5-8.0); Triglycerides 90 mg/dL; Unsaturated Iron Binding 326 ug/dL
[2022-08-12 12:59] LABS: Ferritin 48 ng/mL (20-250); Free T4 (Free Thyroxine) 1.08 ng/dL (0.71-1.85); PSA,Total (Free>4and<10) < 0.10 ng/mL (0.00-4.00); Thyroid Stimulating Hormone 1.62 uIU/mL (0.32-4.0)
[2022-08-12 13:53] LABS: Folate 12.4 ng/mL (> or = 4.0); Vitamin B12 763 pg/mL (200-900)
[2022-08-12 14:00] LABS: Albumin Level 4.2 g/dL (3.5-5.0)
== END 2022-08-12 10:01 | disposition home or self-care (01) ==
LOC: HO.10HDL 10:00
PROVIDERS: Absent Provider Urology; Visit Provider Internal Medicine
DX: Z12.5 Encounter for screening for malignant neoplasm of prostate (principal); C61 Malignant neoplasm of prostate; I10 Essential (primary) hypertension; E78.00 Pure hypercholesterolemia, unspecified; D64.9 Anemia, unspecified
CPT/HCPCS: 36415; 80053; 80061; 82607; 82728; 82746; 83540; 84153; 84439; 84443; 85025; 85045

== ENCOUNTER 2022-11-24 12:25 | Outpatient (REF) | payer MEDICARE, SELFPAY ==
[2022-11-24 14:23] LABS: Blood Urea Nitrogen 16 mg/dL (9-16); Estimated Glomerular Filt Rate > 60
== END 2022-11-24 12:26 | disposition home or self-care (01) ==
LOC: HO.10HDL 12:25
PROVIDERS: Visit Provider Internal Medicine
DX: N28.9 Disorder of kidney and ureter, unspecified (principal)
CPT/HCPCS: 36415; 82565; 84520

== ENCOUNTER 2023-06-20 11:09 | Outpatient (REF) | payer MEDICARE, SELFPAY ==
[2023-06-22 05:03] LABS: Lyme Abs Screen <0.90 index
== END 2023-06-20 11:10 | disposition home or self-care (01) ==
LOC: HO.LAB 11:09
PROVIDERS: PCP Internal Medicine; Visit Provider Internal Medicine
DX: D64.9 Anemia, unspecified (principal)
CPT/HCPCS: 36415; 86617; 86618

== ENCOUNTER 2023-06-26 12:18 | Outpatient (AMB) | payer MEDICARE, SELFPAY ==
[2023-06-26 12:26] VITALS: BP 128/64; PULSE 77; O2SAT 97; BMI 30.1
--- NOTE | 2023-06-26 12:26 | A.OFFVIS_ITS ---
Intake Vital Signs 06/26/23 12:26 Height 5 ft 8 in Weight 198 lb BMI 30.1 BP 128/64 Blood Pressure Location Lt brachial Position Sitting Pulse 77 Pulse Source Pulse Oximeter Temp Source Skin Pulse Oximetry (%) 97 Oxygen Delivery Method Room Air Intake Visit Reasons: AWV Allergies sulfamethoxazole [From Bactrim] Allergy (Intermediate, Verified 06/26/23 12:27) Anxiety trimethoprim [From Bactrim] Allergy (Intermediate, Verified 06/26/23 12:27) Anxiety Sulfa (Sulfonamide Antibiotics) Allergy (Unknown, Verified 06/26/23 12:27) Unknown Medication List - Last Reconciled 06/26/23 by Ruby Luna MD ascorbate calcium (vitamin C) 500 mg PO DAILY C,E,zinc,copper [id number] 250-5-1 mg (Ocuvite Adult 50 Plus) 1 cap PO DAILY cholecalciferol (vitamin D3) 25 mcg PO DAILY ferrous sulfate (Feosol) 325 mg PO DAILY lisinopril 20 mg PO DAILY 90 days lisinopril-hydrochlorothiazide 20-25 mg 1 tab PO DAILY 90 days lorazepam 0.5 mg PO BEDTIME PRN 90 days magnesium oxide 500 mg PO DAILY omeprazole 20 mg PO QAM vitamin B complex 1 tab PO DAILY HPI AWV HPI Details 82-year-old obese male with a history of prostate cancer generalized anxiety disorder hypertension Sandoval's esophagus coming in for annual well visit. Last seen in November 2022. Patient was seen by the Ortho last month for the left knee pain which has resolved. Patient also had carpal tunnel release on the left in2022. L wrist pain - seeing ortho and advsied surgery. R CTS - will see Dr. Shea [facility] Medical History Anemia Anxiety Finger fracture, right History of renal calculi Surgical History History of prostatectomy History of tonsillectomy Family History (Updated 12/01/22 @ 13:02 by Leah Schmid CMA) Father No problems noted. Mother No problems noted. Brother Prostate cancer Daughter No problems noted. Son No problems noted. Social History (Updated 06/26/23 @ 12:46 by Ruby Luna MD) Housing: House Alcohol intake: current Patient Tobacco Use Status: Former Tobacco user Quit Date: 20 years ago Tobacco use type: Cigarette Years Smoked: quit 1999 e-Cigarette/Vaping Use: Never Used Second Hand Smoke Exposure: No Current occupational status: retired Cognitive needs: No Hearing needs: Yes Vision needs: Yes Questionnaire Medicare Wellness Checkup [age] What gender do you identify with?: male During the past 4 weeks, how much have you been bothered by emotional problems such as feeling anxious, depressed, irritable, sad or downhearted, and blue?: slightly During the past 4 weeks, has your physical & emotional health limited your social activities with family, friends, neighbors, or groups?: not at all During the past 4 weeks, how much bodily pain have you generally had?: very mild pain During the past 4 weeks, was someone available to help you if you needed & wanted help?: yes, as much as I wanted During the past 4 weeks, what was the hardest physical activity you could do for at least 2 minutes?: moderate Can you get to places out of walking distance without help? (For eg., can you travel alone on buses, taxis or drive your car?): Yes Can you go shopping for groceries or clothes without someone's help?: Yes Can you prepare your own meals?: Yes Can you do your housework without help?: Yes Because of any health problems, do you need the help of another person with your personal care needs such as eating, bathing, dressing or getting around the house?: No Can you handle your own money without help?: Yes During the past 4 weeks, how would you rate your health in general?: very good During the past 4 weeks how have things been going for you?: pretty well Are you having difficulties driving your car?: no Do you always fasten your seat belt when you are in a car?: yes, usually During past 4 weeks, have you been bothered by the following: never: Trouble eating well?, Teeth or denture problems? and Problems using the telephone?, seldom: Falling or dizzy when standing up and Tiredness or fatigue? and sometimes: Sexual problems? Have you fallen 2 or more times in the past year?: No Are you afraid of falling?: No Are you a smoker?: no During the past 4 weeks, how many drinks of wine, beer, or other alcoholic beverages did you have?: 2-5 drinks per week Do you exercise for about 20 minutes 3 or more times a week?: yes, most of the time Have you been given information to help with the following?: yes: Keeping track of your medications? and no: Hazards in your house that might hurt you? How often do you have trouble taking medicines the way you have been told to take them?: I always take medicine as prescribed How confident are you that you can control & manage most of your health problems?: very confident What is your race?: White PHQ-9 Over the last 2 weeks, how often have you been bothered by any of the following problems? 1. Little interest or pleasure in doing things: not at all 2. Feeling down, depressed, or hopeless: not at all 3. Trouble falling or staying asleep, or sleeping too much: more than half the days 4. Feeling tired or having little energy: more than half the days 5. Poor appetite or overeating: more than half the days 6. Feeling bad about yourself - or that you are a failure or have let yourself or your family down: not at all 7. Trouble concentrating on things, such as reading the newspaper or watching television: not at all 8. Moving or speaking so slowly that other people could have noticed. Or the opposite - being so fidgety or restless that you have been moving around a lot more than usual: not at all 9. Thoughts that you would be better off or of hurting yourself in some way: not at all Total score: 6 Depression Screening Interpretation: Positive Source: Developed by Drs. Tor Vigil, Joy Galvin, Roddy Patton and colleagues, with an educational ugo from [employer]. Review of Systems Const Denies poor appetite and Denies weakness Eyes Denies no additional complaints ENT Reports Normal hearing present, Denies dizziness, Denies nasal congestion, Denies tinnitus and Denies sore throat Card Denies chest pain, Denies syncope, Denies rapid heart rate and Denies dyspnea Resp Denies cough and Denies dyspnea GI Denies change in stool character, Reports constipation, Denies diarrhea, Denies nausea and Denies vomiting Denies dysuria and Denies urinary frequency Neuro Reports Normal hearing present, Denies confusion, Denies dizziness, Denies syncope and Denies weakness Psych Denies confusion Physical Exam Vital Signs: Last Vital Signs Pulse 77 06/26/23 12:26 BP 128/64 06/26/23 12:26 Pulse Ox 97 06/26/23 12:26 Oxygen Delivery Method Room Air 06/26/23 12:26 BMI result Body Mass Index 30.1 Const General: No confusion Orientation/consciousness: No confusion HEENT Head: Yes normocephalic Ears: external ears normal and TM's normal bilaterally Face and sinus: Yes normal facial exam Mouth: moist mucous membranes Throat: Yes tonsils normal Eyes Conjunctivae: conjunctivae normal Pupils: Equal, round and reactive pupils present and Pupil accommodation reflex normal Direct Ophthalmoscopy: normal light reflex Neck Neck: No lymphadenopathy Thyroid: Thyroid normal Chest Chest palpation & inspection: normal inspection of the chest Resp Effort & Inspection: normal respiratory effort and no audible wheezes Auscultation: clear to auscultation bilaterally, no crackles, no wheezes and lung sounds not diminished Cardio Rate: regular rate Rhythm: regular rhythm Peripheral pulses: radial pulses present and dorsalis pedis present GI Other: guaiac postive- on IRON black stools, prostate none Palpation (GI): no masses Auscultation: normal bowel sounds and normoactive bowel sounds Male General Exam: Yes normal external exam Skin General skin exam: no rashes or lesions noted Rashes: no rashes Neuro General: No confusion Cranial nerves: Yes Equal, round and reactive pupils present and Yes Normal hearing present Cognition (Neuro): normal cognition Gait exam (Neuro): Normal gait present Motor exam (neuro): 5/5 motor strength present throughout Deep tendon reflexes (DTR's): Right brachioradialis reflex intensity grade: 2+, Left brachioradialis reflex intensity grade: 2+, Right patellar reflex intensity grade: 2+ and Left patellar reflex intensity grade: 2+ Extrem General: No edema Assessment & Plan Assessment & Plan (1) Medicare annual wellness visit, initial: Code(s): Z00.00 - Encounter for general adult medical examination without abnormal findings (2) Sandoval's esophagus: Comment: November 2017 no more EGD Code(s): K22.70 - Sandoval's esophagus without dysplasia Qualifiers: Sandoval's esophagus type: without dysplasia Qualified Code(s): K22.70 - Sandoval's esophagus without dysplasia Plan: Avoid the foods that causes that usually spicy foods, tomato products, juices, coffee, soda and foods that your sensitive to. After eating do not lie down, allow 3-4 hours before in lie down. And keep the head of bed above 30 degrees to avoid the acid from going up. (3) Hypertension: Code(s): I10 - Essential (primary) hypertension Plan: Continue with blood pressure medication. Decrease salt intake and exercise patient on lisinopril and hydrochlorothiazide (4) Generalized anxiety disorder: Comment: decline counseling 07/2021 Code(s): F41.1 - Generalized anxiety disorder Plan: Continue on medication as needed (5) Carpal tunnel syndrome: Comment: left repair done 11/2022 Code(s): G56.00 - Carpal tunnel syndrome, unspecified upper limb (6) Prostate cancer: Comment: 2011 Dr. Garza Code(s): C61 - Malignant neoplasm of prostate Plan: Continue to follow-up with prostate number Medications: Refilled lorazepam 0.5 mg PO BEDTIME 90 days PRN 30 tabs 1RF anxiety F41.1 - Generalized anxiety disorder Quality Reporting (2019) Depression/Bipolar (159/160/161/177) PHQ-9: Total score: 6 Coding Level of Care Code Medicare First (G0438) Diagnoses Medicare annual wellness visit, initial Z00.00 Sandoval's esophagus without dysplasia K22.70 Sandoval's esophagus type: without dysplasia Essential hypertension I10 Generalized anxiety disorder F41.1 Carpal tunnel syndrome G56.00 Prostate cancer C61
== END 2023-06-26 13:12 | disposition home or self-care (01) ==
PROVIDERS: Visit Provider Internal Medicine
DX: Z00.00 Encounter for general adult medical examination without abnormal findings (principal); K22.70 Barrett's esophagus without dysplasia; C61 Malignant neoplasm of prostate; I10 Essential (primary) hypertension; F41.1 Generalized anxiety disorder; G56.00 Carpal tunnel syndrome, unspecified upper limb
CPT/HCPCS: G0438; G0439

== ENCOUNTER 2023-08-14 10:35 | Outpatient (REF) | payer MEDICARE, SELFPAY ==
[2023-08-14 11:20] LABS: MANUAL DIFF FLAG NO
[2023-08-14 11:23] LABS: Basophils Percent Auto 0.7 % (0-2); Eosinophils Absolute Auto 0.1 X10*3/uL (0.0-0.4); Eosinophils Percent Auto 2.2 % (0-4); Hematocrit 40.3 % (42.0-52.0); Hemoglobin 13.4 g/dl (14.0-18.0); Imm Gran Abs Auto 0.04 X10*3/uL (0.00-0.03); Imm Gran Pct Auto 0.7 % (0.0-0.4); Immature Retic Fraction 27.6 % (2.3-13.4); Lymphocytes Percent Auto 34.7 % (20-40); Mean Corpuscular HGB Conc 33.3 g/dl (31.0-36.0); Mean Corpuscular Hemoglobin 33.6 pg (27.0-33.0); Mean Platelet Volume 10.9 fL (9.4-12.4); Monocytes Absolute Auto 0.4 X10*3/uL (0.1-1.2); Monocytes Percent Auto 6.2 % (2-11); Neutrophils Absolute Auto 3.2 x10*3/uL (2.0-8.3); Neutrophils Percent Auto 55.5 % (45-73); Platelet Count 218 X10*3/uL (160-400); Red Blood Count 3.99 X10*6/uL (4.60-5.80); Retic HGB Equivalent 34.8 pg (30.0-35.0); Reticulocyte Percent 2.2 % (0.5-1.8); Reticulocytes Absolute 0.089 X10*6/uL (0.026-0.095); White Blood Count 5.8 X10*3/uL (4.8-10.8)
[2023-08-14 11:53] LABS: Alanine Aminotransferase 38 U/L (0-40); Albumin Level 4.5 g/dL (3.5-5.0); Alkaline Phosphatase 62 U/L (39-117); Anion Gap 13 (12-20); Aspartate Amino Transferase 28 U/L (5-37); Bilirubin Total 0.7 mg/dL (0.0-1.0); Blood Urea Nitrogen 17 mg/dL (9-16); Calcium 9.6 mg/dL (8.4-10.2); Carbon Dioxide 31 mmol/L (22-29); Chloride 102 mmol/L (96-108); Cholesterol 172 mg/dL (<200); Estimated Glomerular Filt Rate > 60; Ferritin 60 ng/mL (20-250); Free T4 (Free Thyroxine) 0.97 ng/dL (0.71-1.85); Glucose Random 106 mg/dL (60-115); HDL Cholesterol 37 mg/dL (>40); Iron 43 mcg/dL (45-160); LDL Cholesterol Calculated 112 mg/dL (<100); Percent Iron Saturation 13 % (15-50); Potassium 3.8 mmol/L (3.3-5.1); Sodium 142 mmol/L (135-145); Thyroid Stimulating Hormone 2.17 uIU/mL (0.32-4.0); Total Iron Binding Capacity 323 mcg/dL (228-428); Total Protein 7.9 g/dL (6.5-8.0); Triglycerides 119 mg/dL (<150); Unsaturated Iron Binding 280 ug/dL
[2023-08-14 13:23] LABS: Folate 10.7 ng/mL (> or = 4.0); Prostate Specific Antigen < 0.10 ng/mL (<0.05-4.0); Vitamin B12 1394 pg/mL (200-900)
== END 2023-08-14 10:36 | disposition home or self-care (01) ==
LOC: HO.10HDL 10:35
PROVIDERS: Visit Provider Internal Medicine
DX: K22.70 Barrett's esophagus without dysplasia (principal); I10 Essential (primary) hypertension; D64.9 Anemia, unspecified; E78.00 Pure hypercholesterolemia, unspecified; Z12.5 Encounter for screening for malignant neoplasm of prostate
CPT/HCPCS: 36415; 80053; 80061; 82607; 82728; 82746; 83540; 84153; 84439; 84443; 85025; 85045

== ENCOUNTER 2023-09-27 16:06 | Outpatient (AMB) | payer MEDICARE, SELFPAY ==
[2023-09-27 16:07] VITALS: BP 132/86; PULSE 101; O2SAT 99; BMI 30.4
--- NOTE | 2023-09-27 16:07 | MHC.PC.OV ---
Vital Signs 09/27/23 16:07 Height 5 ft 8 in Weight 200 lb BMI 30.4 BP 132/86 Blood Pressure Location Lt brachial Position Sitting Pulse 101 H Pulse Source Pulse Oximeter Pulse Oximetry (%) 99 Oxygen Delivery Method Room Air Intake Visit Reasons: Eye Muscle Recession/Resection, 10/11, [facility] [place] Note: Patient is here for a Pre-op scheduled with Dr. Matthew Coles ([place]) on 10/11. Internet Sales Associate Required: No Allergies sulfamethoxazole [From Bactrim] Allergy (Intermediate, Verified 09/27/23 16:08) Anxiety trimethoprim [From Bactrim] Allergy (Intermediate, Verified 09/27/23 16:08) Anxiety Sulfa (Sulfonamide Antibiotics) Allergy (Unknown, Verified 09/27/23 16:08) Unknown Medication List - Last Reconciled 09/27/23 by Ruby Luna MD ascorbate calcium (vitamin C) 500 mg PO DAILY C,E,zinc,copper [id number] 250-5-1 mg (Ocuvite Adult 50 Plus) 1 cap PO DAILY cholecalciferol (vitamin D3) 25 mcg PO DAILY ferrous sulfate (Feosol) 325 mg PO DAILY lisinopril 20 mg PO DAILY 90 days lisinopril-hydrochlorothiazide 20-25 mg 1 tab PO DAILY 90 days lorazepam 0.5 mg PO BEDTIME PRN 90 days magnesium oxide 500 mg PO DAILY omeprazole 20 mg PO QAM vitamin B complex 1 tab PO DAILY Tobacco use date assessed: 09/27/23 Fall risk assessment: No Falls in past year Last assessed Fall Risk: 09/27/23 HPI Eye Muscle Recession/Resection, 10/11, [facility] [place] HPI Details 83-year-old obese male with Sandoval's esophagus hypertension generalized anxiety disorder prostate cancer last seen in June 2023. Patient did have carpal tunnel syndrome and was referred to the hand surgeon July 2023 patient underwent right open carpal tunnel release local only type anesthesia, left open carpal tunnel release 07/18/[address] Shea. Patient has a planned surgery of the eye October 11.. Pre op today problem of focusing on the eyes and Dr. Coleman will do muscle manipulation. FORMERLY [facility], [facility] Medical History Anemia Anxiety Finger fracture, right History of renal calculi Surgical History History of prostatectomy History of tonsillectomy Family History (Updated 12/01/22 @ 13:02 by Leah Schmid [facility]) Father No problems noted. Mother No problems noted. Brother Prostate cancer Daughter No problems noted. Son No problems noted. Social History (Updated 09/27/23 @ 16:45 by Ruby Luna MD) Housing: House Alcohol intake: current Comment: QD once cognac Patient Tobacco Use Status: Former Tobacco user Quit Date: 20 years ago Tobacco use type: Cigarette Years Smoked: quit 1999 e-Cigarette/Vaping Use: Never Used Second Hand Smoke Exposure: No Current occupational status: retired Cognitive needs: No Hearing needs: Yes Vision needs: Yes Questionnaire PHQ-9 Over the last 2 weeks, how often have you been bothered by any of the following problems? 1. Little interest or pleasure in doing things: not at all 2. Feeling down, depressed, or hopeless: not at all 3. Trouble falling or staying asleep, or sleeping too much: not at all 4. Feeling tired or having little energy: not at all 5. Poor appetite or overeating: not at all 6. Feeling bad about yourself - or that you are a failure or have let yourself or your family down: not at all 7. Trouble concentrating on things, such as reading the newspaper or watching television: not at all 8. Moving or speaking so slowly that other people could have noticed. Or the opposite - being so fidgety or restless that you have been moving around a lot more than usual: not at all 9. Thoughts that you would be better off or of hurting yourself in some way: not at all Total score: 0 Depression Screening Interpretation: Negative Depression Screening Done: Yes Source: Developed by Drs. Tor Vigil, Joy Galvin, Roddy Patton and colleagues, with an educational ugo from [employer]. Thrive Questionnaire Date Thrive assessed: 09/27/23 I am a: Patient What is your living situation today?: I have a steady place to live Within the past 12 months, did the food you bought not last and you didn't have the money to get more?: Never true Within the past 12 months, did you worry whether your food would run out before you got money to buy more?: Never true Do you have trouble paying for medicines?: No Do you have trouble getting transportation to medical appointments?: No Do you have trouble paying your heating and electricity bill?: No Do you have trouble taking care of your child, family member or friend?: No Do you have trouble with day-to-day activities such as bathing, preparing meals, shopping, managing finances, etc.?: No Are you currently unemployed and looking for a job?: No Are you interested in more education?: No AUDIT C Alcohol Use Questionnaire (AUDIT-C) 1. How often do you have a drink containing alcohol?: 4 or more times a week 2. How many drinks containing alcohol do you have on a typical day when you are drinking?: 1 or 2 3. How often do you have six or more drinks on one occasion?: Never Total Score: 4 PATRICIA-7 AMB Questionnaire PATRICIA-7 Date PATRICIA - 7 assessed: 09/27/23 Feeling nervous, anxious, or on edge: 0 = Not at all Not being able to stop or control worryin = Not at all Worrying too much about different things: 0 = Not at all Trouble relaxin = Not at all Being so restless that it is hard to sit still: 0 = Not at all Becoming easily annoyed or irritable: 0 = Not at all Feeling afraid as if something awful might happen: 0 = Not at all Total PATRICIA-7 score (0-4 normal; 5-9 mild; 10-14 moderate; 15-21 severe): 0 Source: Developed by Drs. Tor Vigil, Joy Galvin, Roddy Patton and colleagues, with an educational ugo from [employer]. Review of Systems Const Denies poor appetite and Denies weakness Eyes Denies no additional complaints ENT Reports Normal hearing present, Denies dizziness, Denies nasal congestion, Denies tinnitus and Denies sore throat Card Denies chest pain, Denies syncope, Denies rapid heart rate and Denies dyspnea Resp Denies cough and Denies dyspnea GI Denies change in stool character, Reports constipation, Denies diarrhea, Denies nausea and Denies vomiting Denies dysuria and Denies urinary frequency Neuro Reports Normal hearing present, Denies confusion, Denies dizziness, Denies syncope and Denies weakness Psych Denies confusion Physical exam (Primary Care) Vital Signs: Last Vital Signs Pulse 101 H 09/27/23 16:07 BP 132/86 09/27/23 16:07 Pulse Ox 99 09/27/23 16:07 Oxygen Delivery Method Room Air 09/27/23 16:07 BMI result Body Mass Index 30.4 Tobacco/Smoking Status: Tobacco use Status Tobacco use date assessed 09/27/23 09/27/23 16:09 Patient Tobacco Use Status Former Tobacco user 09/27/23 16:09 Tobacco use type Cigarette 09/27/23 16:09 e-Cigarette/Vaping Use Never Used 09/27/23 16:09 PHQ-9: PHQ-9 Score PHQ-9: Total score 0 09/27/23 16:19 Depression Screening Interpretation: Negative Thrive Assessment: Date of Thrive Assessment Date Thrive assessed 09/27/23 09/27/23 16:09 Const General: No confusion Orientation/consciousness: No confusion Neuro General: No confusion Cranial nerves: Yes Normal hearing present Assessment and Plan Assessment & Plan (1) Hypertension: Code(s): I10 - Essential (primary) hypertension Plan: Continue with blood pressure medication. Decrease salt intake and exercise continue with lisinopril 20 mg once a day and lisinopril 20/25 mg once a day (2) Sandoval's esophagus: Comment: November 2017 no more EGD Code(s): K22.70 - Sandoval's esophagus without dysplasia Qualifiers: Sandoval's esophagus type: without dysplasia Qualified Code(s): K22.70 - Sandoval's esophagus without dysplasia Plan: Avoid the foods that causes that usually spicy foods, tomato products, juices, coffee, soda and foods that your sensitive to. After eating do not lie down, allow 3-4 hours before in lie down. And keep the head of bed above 30 degrees to avoid the acid from going up. (3) Fatty liver: Code(s): K76.0 - Fatty (change of) liver, not elsewhere classified Plan: Low-fat diet and exercise (4) Generalized anxiety disorder: Comment: decline counseling 07/2021 Code(s): F41.1 - Generalized anxiety disorder Plan: Continue with lorazepam as needed (5) Carpal tunnel syndrome: Comment: left repair done 11/2022 right, June 2023 Code(s): G56.00 - Carpal tunnel syndrome, unspecified upper limb Plan: Status post surgery Dr. Shea (6) Anemia: Comment: Iron deficiency Code(s): D64.9 - Anemia, unspecified Plan: Iron deficiency continue with iron and vitamin-C (7) Preop exam for internal medicine: Code(s): Z01.818 - Encounter for other preprocedural examination Plan: eye surgery 10/11/2023 EKG and blood work requested. With age discussed with the patient that he belongs to the intermediate risk for cardiac complications. (8) Erectile dysfunction: Code(s): N52.9 - Male erectile dysfunction, unspecified Orders: Orders ECG 12 lead EKG Today Z01.818 - Encounter for other preprocedural examination Basic Metabolic Panel Today Z01.818 - Encounter for other preprocedural examination Complete Blood Count Auto Diff Today Z01.818 - Encounter for other preprocedural examination Medications: New sildenafil administer 30 minutes to 4 hours before activity 100 mg PO DAILY PRN 20 tabs 1RF sexual activity N52.9 - Male erectile dysfunction, unspecified sildenafil administer 30 minutes to 4 hours before activity 100 mg PO DAILY PRN 20 tabs 1RF sexual activity N52.9 - Male erectile dysfunction, unspecified Coding Level of Care Code Est Pt Level 4 (96260) Diagnoses Essential hypertension I10 Sandoval's esophagus without dysplasia K22.70 Sandoval's esophagus type: without dysplasia Fatty liver K76.0 Generalized anxiety disorder F41.1 Carpal tunnel syndrome G56.00 Anemia D64.9 Preop exam for internal medicine Z01.818 Erectile dysfunction N52.9
== END 2023-09-27 17:01 | disposition home or self-care (01) ==
PROVIDERS: PCP Internal Medicine; Visit Provider Internal Medicine
DX: I10 Essential (primary) hypertension (principal); K22.70 Barrett's esophagus without dysplasia; K76.0 Fatty (change of) liver, not elsewhere classified; F41.1 Generalized anxiety disorder; G56.00 Carpal tunnel syndrome, unspecified upper limb; D64.9 Anemia, unspecified; Z01.818 Encounter for other preprocedural examination; N52.9 Male erectile dysfunction, unspecified; Z90.79 Acquired absence of other genital organ(s)
CPT/HCPCS: 99214

== ENCOUNTER → 2023-10-03 11:09 | Outpatient (REF) | payer MEDICARE, SELFPAY ==
--- NOTE | 2023-10-03 11:19 | ECG_ITS ---
Test Reason : preop Blood Pressure : / mmHG Vent. Rate : 086 BPM Atrial Rate : 086 BPM P-R Int : 134 ms QRS Dur : 086 ms QT Int : 370 ms P-R-T Axes : 046 -17 033 degrees QTc Int : 442 ms Normal sinus rhythm Nonspecific ST abnormality Abnormal ECG No previous ECGs available Referred By: Ruby Luna Electronically Signed By:LINDA PRIETO MD
[2023-10-03 11:32] LABS: MANUAL DIFF FLAG NO
[2023-10-03 11:39] LABS: Basophils Absolute Auto 0.1 X10*3/uL (0.0-0.2); Basophils Percent Auto 1.1 % (0-2); Eosinophils Absolute Auto 0.1 X10*3/uL (0.0-0.4); Eosinophils Percent Auto 2.3 % (0-4); Hematocrit 38.2 % (42.0-52.0); Hemoglobin 12.5 g/dl (14.0-18.0); Imm Gran Abs Auto 0.06 X10*3/uL (0.00-0.03); Lymphocytes Absolute Auto 2.1 X10*3/uL (1.2-4.9); Lymphocytes Percent Auto 34.3 % (20-40); Mean Corpuscular HGB Conc 32.7 g/dl (31.0-36.0); Mean Corpuscular Hemoglobin 33.4 pg (27.0-33.0); Mean Corpuscular Volume 102.1 fL (80.0-98.0); Mean Platelet Volume 10.1 fL (9.4-12.4); Monocytes Absolute Auto 0.5 X10*3/uL (0.1-1.2); Monocytes Percent Auto 7.2 % (2-11); Neutrophils Absolute Auto 3.4 x10*3/uL (2.0-8.3); Neutrophils Percent Auto 54.1 % (45-73); Platelet Count 209 X10*3/uL (160-400); Red Blood Count 3.74 X10*6/uL (4.60-5.80); Red Cell Distribution Width 18.4 % (11.0-16.0); White Blood Count 6.2 X10*3/uL (4.8-10.8)
[2023-10-03 13:36] LABS: Anion Gap 11 (12-20); Blood Urea Nitrogen 18 mg/dL (9-16); Calcium 9.7 mg/dL (8.4-10.2); Carbon Dioxide 30 mmol/L (22-29); Chloride 105 mmol/L (96-108); Estimated Glomerular Filt Rate > 60; Glucose Random 97 mg/dL (60-115); Potassium 4.2 mmol/L (3.3-5.1); Sodium 142 mmol/L (135-145)
== END ==
LOC: HO.CARD 11:09
PROVIDERS: PCP Internal Medicine; Visit Provider Internal Medicine
DX: Z01.818 Encounter for other preprocedural examination (principal)
CPT/HCPCS: 36415; 80048; 85025; 93005

== ENCOUNTER → 2023-10-03 11:19 | Outpatient (BNV) | payer MEDICARE, SELFPAY | PROVIDERS: PCP Internal Medicine; Visit Provider Internal Medicine Cardiovascular Disease | DX: R94.31 Abnormal electrocardiogram [ECG] [EKG] (principal) | CPT/HCPCS: 93010 ==

== ENCOUNTER 2023-10-11 10:20 | Day surgery (SDC) | payer MEDICARE, SELFPAY ==
[2023-10-05 15:13] VITALS: BMI 30.4
--- NOTE | 2023-10-10 09:21 | HO.ANESPROP2 ---
Documented by User: Dolores Harrison NP 10/10/23 09:22 HPI - Anesthesia Eval Consult details Narrative: 83yo M for Bilateral/Lateral Eye Muscle Recession/Resection Medically cleared by PCP [facility] Active Problems Active Problems: All Active Problems (Updated 10/05/23 @ 15:15 by Lynn Crawford RN) Erectile dysfunction (Acute) Preop exam for internal medicine (Acute) Medicare annual wellness visit, initial (Acute) Renal lesion (Acute) Diverticulitis (Acute) Anemia (Acute) Carpal tunnel syndrome (Acute) Medicare annual wellness visit, subsequent (Acute) Hand numbness (Acute) Generalized anxiety disorder (Acute) Hypokalemia (Acute) Sciatic leg pain (Acute) Fatty liver (Acute) Prostate cancer (Acute) Hypertension (Acute) Sandoval's esophagus (Acute) GERD (gastroesophageal reflux disease) (Acute) Past Medical History Medical History Fatty liver History of renal calculi Prostate cancer Finger fracture, right Anemia Hypertension Sandoval's esophagus Anxiety GERD (gastroesophageal reflux disease) Family History Family History Father No problems noted. Mother No problems noted. Brother Prostate cancer Daughter No problems noted. Son No problems noted. Family history of problems with anesthesia: No Surgical History Surgical History History of esophagogastroduodenoscopy (EGD) H/O colonoscopy History of carpal tunnel release History of prostatectomy History of tonsillectomy History of Problems with Anesthesia: No Social History Social History Housing: House Are you a primary health care facilities inspector to a significant other at home: No Do you presently have visiting nurse or other home services: No Alcohol intake: current Comment: QD once cognac Patient Tobacco Use Status: Former Tobacco user Quit Date: 1999 Tobacco use type: Cigarette Years Smoked: quit 1999 e-Cigarette/Vaping Use: Never Used Second Hand Smoke Exposure: No Use of substances other than those prescribed or required for medical reasons: Yes Substance Use Type Other:: CBD edibles Are you DNR?: No Advance Directives: No Advance Directives Information Provided: Yes Advance Directives on File: No Recently lost weight without trying: No Eating poorly because of decreased appetite: No Nutrition Risks: No Nutritional Risk Poor oral hygiene: No Current occupational status: retired Cognitive needs: No Hearing needs: Yes Vision needs: Yes Meds Allergies Allergy/AdvReac Type Severity Reaction Status Date / Time Sulfa (Sulfonamide Allergy Intermediate Anxiety Verified 10/05/23 15:05 Antibiotics) sulfamethoxazole Allergy Intermediate Anxiety Verified 09/27/23 16:08 [From Bactrim] trimethoprim [From Bactrim] Allergy Intermediate Anxiety Verified 09/27/23 16:08 Home Medications Medication Instructions Recorded Confirmed Last Taken Type ascorbate calcium (vitamin C) 500 500 mg PO DAILY 08/03/20 10/05/23 Unknown History mg tablet cholecalciferol (vitamin D3) 25 25 mcg PO DAILY 08/03/20 10/05/23 Unknown History mcg (1,000 unit) capsule ferrous sulfate 325 mg (65 mg 325 mg PO DAILY 08/03/20 10/05/23 Unknown History iron) tablet (Feosol) magnesium oxide 500 mg capsule 500 mg PO DAILY 08/03/20 10/05/23 Unknown History vit C,E,zinc,copper-[id number] 250 1 cap PO DAILY 08/03/20 10/05/23 Unknown History mg-lutein 5 mg-zeaxanthin 1 mg capsule (Ocuvite Adult 50 Plus) vitamin B complex 1 tab PO DAILY 08/03/20 10/05/23 Unknown History lisinopril 20 mg tablet 20 mg PO BEDTIME 10/05/23 10/05/23 Unknown History lisinopril 20 1 tab PO QAM 10/05/23 10/05/23 Unknown History mg-hydrochlorothiazide 25 mg tablet Exam Height,Weight and Vital Signs: Height 5 ft 8 in Weight 90.718 kg Pertinent Lab Results Pertinent Lab Results: Laboratory Tests 10/03/23 11:30 WBC 6.2 Hgb 12.5 L Hct 38.2 L Plt Count 209 Sodium 142 Potassium 4.2 Chloride 105 Carbon Dioxide 30 H BUN 18 H Creatinine 0.90 Narrative Narrative: EKG 09/2023 Vent. Rate : 086 BPM Atrial Rate : 086 BPM P-R Int : 134 ms QRS Dur : 086 ms QT Int : 370 ms P-R-T Axes : 046 -17 033 degrees QTc Int : 442 ms Normal sinus rhythm Nonspecific ST abnormality Abnormal ECG No previous ECGs available Assessment and Plan Assessment Anesthesia Assessment: Chart Reviewed Final Anesthetic Review Family History of Problems with Anesthesia: No History of Problems with Anesthesia: No Documented by User: Carlee De Oliveira MD 10/11/23 11:52 PMFSH Past Medical History Medical History Fatty liver History of renal calculi Prostate cancer Finger fracture, right Anemia Hypertension Sandoval's esophagus Anxiety GERD (gastroesophageal reflux disease) Family History Family History Father No problems noted. Mother No problems noted. Brother Prostate cancer Daughter No problems noted. Son No problems noted. Surgical History Surgical History History of esophagogastroduodenoscopy (EGD) H/O colonoscopy History of carpal tunnel release History of prostatectomy History of tonsillectomy Social History Social History Housing: House Are you a primary health care facilities inspector to a significant other at home: No Do you presently have visiting nurse or other home services: No Alcohol intake: current Comment: QD once cognac Patient Tobacco Use Status: Former Tobacco user Quit Date: 1999 Tobacco use type: Cigarette Years Smoked: quit 1999 e-Cigarette/Vaping Use: Never Used Second Hand Smoke Exposure: No Use of substances other than those prescribed or required for medical reasons: Yes Substance Use Type Other:: CBD edibles Are you DNR?: No Advance Directives: No Advance Directives Information Provided: Yes Advance Directives on File: No Recently lost weight without trying: No Eating poorly because of decreased appetite: No Nutrition Risks: No Nutritional Risk Poor oral hygiene: No Current occupational status: retired Cognitive needs: No Hearing needs: Yes Vision needs: Yes Meds Allergies Allergy/AdvReac Type Severity Reaction Status Date / Time Sulfa (Sulfonamide Allergy Intermediate Anxiety Verified 10/05/23 15:05 Antibiotics) sulfamethoxazole Allergy Intermediate Anxiety Verified 09/27/23 16:08 [From Bactrim] trimethoprim [From Bactrim] Allergy Intermediate Anxiety Verified 09/27/23 16:08 Home Medications Medication Instructions Recorded Confirmed Last Taken Type ascorbate calcium (vitamin C) 500 500 mg PO DAILY 08/03/20 10/05/23 Unknown History mg tablet cholecalciferol (vitamin D3) 25 25 mcg PO DAILY 08/03/20 10/05/23 Unknown History mcg (1,000 unit) capsule ferrous sulfate 325 mg (65 mg 325 mg PO DAILY 08/03/20 10/05/23 Unknown History iron) tablet (Feosol) magnesium oxide 500 mg capsule 500 mg PO DAILY 08/03/20 10/05/23 Unknown History vit C,E,zinc,copper-fvswh0u 250 1 cap PO DAILY 08/03/20 10/05/23 Unknown History mg-lutein 5 mg-zeaxanthin 1 mg capsule (Ocuvite Adult 50 Plus) vitamin B complex 1 tab PO DAILY 08/03/20 10/05/23 Unknown History lisinopril 20 mg tablet 20 mg PO BEDTIME 10/05/23 10/05/23 Unknown History lisinopril 20 1 tab PO QAM 10/05/23 10/05/23 Unknown History mg-hydrochlorothiazide 25 mg tablet Exam Airway Mallampati Class: III TM Dist: >3cm Neck ROM: Full Loose/Missing/Broken Teeth: No Heart: RRR Lungs: CTA Assessment and Plan Assessment Anesthesia Assessment: Anesthesia Plan Discussed Final Anesthetic Review NPO: Yes ASA Class: II Final Preanesthetic Review: Meds/Allgs Chart Reviewed, Consent Obtained/Reviewed and Anes Risks/Benef Reviewed Patient Risk: Low Procedure Risk: Low Anesthetic Plan Anesthetic Plan: GA Disposition: Standard PACU
[2023-10-11 10:54] VITALS: BMI 30.1
[2023-10-11 10:57] VITALS: BP 113/78; PULSE 91; RESP 16; TEMP 36.8; O2SAT 98
[2023-10-11] MEDS: Lactated Ringers 1,000 ML 100 ML IVCONT (11:13)
--- NOTE | 2023-10-11 13:16 | HO.OPHTHAL ---
Ophthalmology Operative Note Date of Service: 10/11/23 Narrative: Diagnosis exotropia. Procedure bilateral lateral rectus recessions of [address] Cloes. Anesthesia general. Complications none. The patient was brought to the operative room placed under general anesthesia. The eyes were prepped and draped in the usual sterile ophthalmic fashion. A lid speculum was placed in the right eye and a limbal peritomy was created around the lateral rectus muscle. The muscle was hooked and secured with a double-armed Vicryl suture. It was disinserted from the globe and reattached to a position 5 mm behind the original insertion. Conjunctiva was closed with interrupted Vicryl sutures. An identical procedure was then performed on the left eye. The patient was then awoken from general anesthesia and discharged to postoperative recovery in good condition.
[2023-10-11 13:18] VITALS: BP 131/79; PULSE 90; RESP 16; TEMP 36.2; O2SAT 98
[2023-10-11 13:23] VITALS: BP 120/75; PULSE 100; RESP 16; O2SAT 96
[2023-10-11 13:28] VITALS: BP 132/77; PULSE 88; RESP 16; O2SAT 98
[2023-10-11 13:33] VITALS: BP 128/75; PULSE 85; RESP 16; O2SAT 96
[2023-10-11 13:48] VITALS: BP 129/76; PULSE 79; RESP 16; TEMP 36.2; O2SAT 98
== END 2023-10-11 14:37 | disposition home or self-care (01) ==
PROVIDERS: PCP Internal Medicine; Visit Provider Ophthalmology
PROC: (CPT 67311; principal; 2023-10-11 13:00)
DX: H50.10 Unspecified exotropia (principal); I10 Essential (primary) hypertension
CPT/HCPCS: 67311; J0131; J1100; J1596; J2405; J2704; J3010

== ENCOUNTER 2024-01-04 12:50 | Outpatient (AMB) | payer MEDICARE, SELFPAY ==
[2024-01-04 12:54] VITALS: BP 138/72; PULSE 92; O2SAT 97; BMI 30.6
--- NOTE | 2024-01-04 12:54 | A.OFFPC_ITS ---
Vital Signs 01/04/24 12:54 Height 5 ft 8 in Weight 201 lb 0.4 oz BMI 30.6 BP 138/72 Blood Pressure Location Lt brachial Position Sitting Pulse 92 Pulse Source Pulse Oximeter Pulse Oximetry (%) 97 Oxygen Delivery Method Room Air Intake Visit Reasons: 6 months f/u Client Solutions Manager Required: No Allergies Sulfa (Sulfonamide Antibiotics) Allergy (Intermediate, Verified 01/04/24 12:54) Anxiety sulfamethoxazole [From Bactrim] Allergy (Intermediate, Verified 01/04/24 12:54) Anxiety trimethoprim [From Bactrim] Allergy (Intermediate, Verified 01/04/24 12:54) Anxiety Tobacco use date assessed: 01/04/24 Fall risk assessment: No Falls in past year Last assessed Fall Risk: 01/04/24 HPI 6 months f/u HPI Details 83 Year old obese male with hypertension Barretts esophagus fatty liver generalized anxiety disorder last seen in September 2023 for an eye surgery preop patient is here for follow-up. [facility] Medical History Fatty liver History of renal calculi Prostate cancer Finger fracture, right Anemia Hypertension Sandoval's esophagus Anxiety GERD (gastroesophageal reflux disease) Surgical History History of esophagogastroduodenoscopy (EGD) H/O colonoscopy History of carpal tunnel release History of prostatectomy History of tonsillectomy Family History Father No problems noted. Mother No problems noted. Brother Prostate cancer Daughter No problems noted. Son No problems noted. Social History Housing: House Are you a primary rn long term care to a significant other at home: No Do you presently have visiting nurse or other home services: No Alcohol intake: current Comment: QD once cognac Patient Tobacco Use Status: Former Tobacco user Quit Date: 1999 Tobacco use type: Cigarette Years Smoked: quit 1999 e-Cigarette/Vaping Use: Never Used Second Hand Smoke Exposure: No Current occupational status: retired Cognitive needs: No Hearing needs: Yes Vision needs: Yes Questionnaire Thrive Questionnaire Date Thrive assessed: 09/27/23 AUDIT C Alcohol Use Questionnaire (AUDIT-C) 1. How often do you have a drink containing alcohol?: 4 or more times a week 2. How many drinks containing alcohol do you have on a typical day when you are drinking?: 1 or 2 3. How often do you have six or more drinks on one occasion?: Never Total Score: 4 PATRICIA-7 AMB Questionnaire PATRICIA-7 Date PATRICIA - 7 assessed: 09/27/23 Source: Developed by Drs. Tor Vigil, Joy Galvin, Roddy Patton and colleagues, with an educational ugo from [employer]. Physical exam (Primary Care) Vital Signs: Last Vital Signs Pulse 92 01/04/24 12:54 BP 138/72 01/04/24 12:54 Pulse Ox 97 01/04/24 12:54 Oxygen Delivery Method Room Air 01/04/24 12:54 BMI result Body Mass Index 30.6 Tobacco/Smoking Status: Tobacco use Status Tobacco use date assessed 01/04/24 01/04/24 12:54 Patient Tobacco Use Status Former Tobacco user 01/04/24 12:54 Tobacco use type Cigarette 01/04/24 12:54 e-Cigarette/Vaping Use Never Used 01/04/24 12:54 Thrive Assessment: Date of Thrive Assessment Date Thrive assessed 09/27/23 01/04/24 12:54 Const General: alert; No acute distress Eyes Conjunctivae: conjunctivae normal Resp Auscultation: clear to auscultation bilaterally Cardio Rate: regular rate Rhythm: regular rhythm GI Inspection: Yes normal to inspection Extrem General: Yes normal to inspection and No edema Assessment and Plan Assessment & Plan (1) Sandoval's esophagus: Comment: most recent 2018 Code(s): K22.70 - Sandoval's esophagus without dysplasia Qualifiers: Sandoval's esophagus type: without dysplasia Qualified Code(s): K22.70 - Sandoval's esophagus without dysplasia Plan: Avoid the foods that causes that usually spicy foods, tomato products, juices, coffee, soda and foods that your sensitive to. After eating do not lie down, allow 3-4 hours before in lie down. And keep the head of bed above 30 degrees to avoid the acid from going up. Patient on omeprazole 20 mg once a day (2) Hypertension: Code(s): I10 - Essential (primary) hypertension Plan: Continue with blood pressure medication. Decrease salt intake and exercise on lisinopril hydrochlorothiazide and lisinopril (3) Prostate cancer: Comment: 2011 Dr. Garza Code(s): C61 - Malignant neoplasm of prostate Plan: Continue with sildenafil (4) Generalized anxiety disorder: Comment: decline counseling 07/2021 Code(s): F41.1 - Generalized anxiety disorder Plan: Continue with lorazepam as needed (5) Anemia: Comment: Iron deficiency Code(s): D64.9 - Anemia, unspecified Plan: Continuing to monitor and on iron and vitamin-C Coding Level of Care Code Est Pt Level 4 (12984) Diagnoses Sandoval's esophagus without dysplasia K22.70 Sandoval's esophagus type: without dysplasia Essential hypertension I10 Prostate cancer C61 Generalized anxiety disorder F41.1 Anemia D64.9
== END 2024-01-04 13:28 | disposition home or self-care (01) ==
PROVIDERS: PCP Internal Medicine; Visit Provider Internal Medicine
DX: K22.70 Barrett's esophagus without dysplasia (principal); I10 Essential (primary) hypertension; C61 Malignant neoplasm of prostate; F41.1 Generalized anxiety disorder; D64.9 Anemia, unspecified
CPT/HCPCS: 99214

== ENCOUNTER 2024-06-21 11:05 | Outpatient (REF) | payer MEDICARE, SELFPAY ==
[2024-06-21 11:32] LABS: MANUAL DIFF FLAG NO
[2024-06-21 11:53] LABS: Basophils Percent Auto 0.3 % (0-2); Hematocrit 38.3 % (42.0-52.0); Hemoglobin 12.6 g/dl (14.0-18.0); Imm Gran Abs Auto 0.08 X10*3/uL (0.00-0.03); Imm Gran Pct Auto 0.7 % (0.0-0.4); Immature Retic Fraction 32.2 % (2.3-13.4); Lymphocytes Absolute Auto 1.6 X10*3/uL (1.2-4.9); Mean Corpuscular HGB Conc 32.9 g/dl (31.0-36.0); Mean Corpuscular Hemoglobin 32.1 pg (27.0-33.0); Mean Corpuscular Volume 97.7 fL (80.0-98.0); Mean Platelet Volume 10.6 fL (9.4-12.4); Monocytes Absolute Auto 0.5 X10*3/uL (0.1-1.2); Monocytes Percent Auto 4.6 % (2-11); NRBC Pct Auto 0.2 /100WBC (0.0-0.2); Neutrophils Absolute Auto 9.1 x10*3/uL (2.0-8.3); Neutrophils Percent Auto 80.4 % (45-73); Platelet Count 234 X10*3/uL (160-400); Red Blood Count 3.92 X10*6/uL (4.60-5.80); Red Cell Distribution Width 19.5 % (11.0-16.0); Retic HGB Equivalent 32.7 pg (30.0-35.0); Reticulocyte Percent 2.5 % (0.5-1.8); Reticulocytes Absolute 0.099 X10*6/uL (0.026-0.095); White Blood Count 11.3 X10*3/uL (4.8-10.8)
[2024-06-21 12:34] LABS: Erythrocyte Sedimentation Rate 5 MM/HR (0-15)
[2024-06-21 12:48] LABS: Alanine Aminotransferase 28 U/L (0-40); Albumin Level 4.8 g/dL (3.5-5.0); Alkaline Phosphatase 68 U/L (39-117); Anion Gap 15 (12-20); Aspartate Amino Transferase 18 U/L (5-37); Bilirubin Total 0.8 mg/dL (0.0-1.0); Blood Urea Nitrogen 19 mg/dL (9-16); Calcium 9.9 mg/dL (8.4-10.2); Carbon Dioxide 28 mmol/L (22-29); Chloride 104 mmol/L (96-108); Cholesterol 174 mg/dL (<200); Estimated Glomerular Filt Rate > 60; Glucose Random 107 mg/dL (60-115); HDL Cholesterol 45 mg/dL (>40); Iron 45 mcg/dL (45-160); LDL Cholesterol Calculated 114 mg/dL (<100); Magnesium 2.1 mg/dL (1.6-2.6); Percent Iron Saturation 13 % (15-50); Potassium 3.5 mmol/L (3.3-5.1); Sodium 143 mmol/L (135-145); Total Iron Binding Capacity 345 mcg/dL (228-428); Total Protein 8.2 g/dL (6.5-8.0); Triglycerides 75 mg/dL (<150); Unsaturated Iron Binding 300 ug/dL
[2024-06-21 13:01] LABS: PSA,Total (Free>4and<10) < 0.10 ng/mL (0.00-4.00)
[2024-06-21 13:05] LABS: Ferritin 55 ng/mL (20-250); Thyroid Stimulating Hormone 0.78 uIU/mL (0.32-4.0)
[2024-06-21 13:15] LABS: Folate 12.3 ng/mL (> or = 4.0); Vitamin B12 1271 pg/mL (200-900)
[2024-06-26 07:04] LABS: Lipoprotein A <10 nmol/L (<75)
== END 2024-06-21 11:06 | disposition home or self-care (01) ==
LOC: HO.LAB 11:05
PROVIDERS: PCP Internal Medicine; Visit Provider Internal Medicine
DX: I10 Essential (primary) hypertension (principal); E78.00 Pure hypercholesterolemia, unspecified; C61 Malignant neoplasm of prostate; Z12.5 Encounter for screening for malignant neoplasm of prostate
CPT/HCPCS: 36415; 80053; 80061; 82607; 82728; 82746; 83540; 83695; 83735; 84153; 84439; 84443; 85025; 85045; 85652

== ENCOUNTER 2024-07-05 12:18 | Outpatient (AMB) | payer MEDICARE, SELFPAY ==
--- NOTE | 2024-07-05 12:35 | A.OFFVIS_ITS ---
Intake Vital Signs 07/05/24 12:37 Height 5 ft 8 in Weight 195 lb BMI 29.6 BP 130/74 Blood Pressure Location Lt brachial Position Sitting Pulse 85 Pulse Source Pulse Oximeter Pulse Oximetry (%) 98 Oxygen Delivery Method Room Air Intake Visit Reasons: NEW G0439 Intake Note: Patient is here for an Annual Wellness Visit. Senior Systems Administrator Required: No Cage Tender: Cage Tender offered & declined Accompanied by: Self / Same As Patient Allergies Sulfa (Sulfonamide Antibiotics) Allergy (Intermediate, Verified 07/05/24 12:37) Anxiety sulfamethoxazole [From Bactrim] Allergy (Intermediate, Verified 07/05/24 12:37) Anxiety trimethoprim [From Bactrim] Allergy (Intermediate, Verified 07/05/24 12:37) Anxiety Medication List - Last Reconciled 07/05/24 by Ruby Luna MD ascorbate calcium (vitamin C) 500 mg PO DAILY C,E,zinc,copper [id number] 250-5-1 mg (Ocuvite Adult 50 Plus) 1 cap PO DAILY cholecalciferol (vitamin D3) 25 mcg PO DAILY ferrous sulfate (Feosol) 325 mg PO DAILY lisinopril 20 mg PO BEDTIME lisinopril-hydrochlorothiazide 20-25 mg 1 tab PO QAM lorazepam 0.5 mg PO BEDTIME PRN 90 days magnesium oxide 500 mg PO DAILY omeprazole 20 mg PO QAM sildenafil 100 mg PO DAILY PRN vitamin B complex 1 tab PO DAILY HPI SWV G0439 HPI Details 83-year-old overweight male with a histo ry of prostate cancer hypertension, Barretts esophagus generalized anxiety disorder coming in for annual well visit. Last seen in 01/13/2024. Review of the notes follows up with orthopedics seen in 06/20/2024 for multiple hand problems from osteoarthritis to history of carpal tunnel Dupuytren's contracture tenosynovitis. Recommended injections and thumb spica splints for the moment. [facility] Urology Dr. Garza, gastroenterology Dr. Song No more colonoscopies. cbd [facility] Medical History Fatty liver History of renal calculi Prostate cancer Finger fracture, right Anemia Hypertension Sandoval's esophagus Anxiety GERD (gastroesophageal reflux disease) Surgical History History of esophagogastroduodenoscopy (EGD) H/O colonoscopy History of carpal tunnel release History of prostatectomy History of tonsillectomy Family History Father No problems noted. Mother No problems noted. Brother Prostate cancer Daughter No problems noted. Son No problems noted. Social History Housing: House Are you a primary childcare worker to a significant other at home: No Do you presently have visiting nurse or other home services: No Alcohol intake: current Alcohol intake frequency: 0-2 drinks per day Alcohol type: wine and hard liquor Comment: QD once cognac Patient Tobacco Use Status: Former Tobacco user Tobacco use type: Cigarette Years Smoked: quit 1999 e-Cigarette/Vaping Use: Never Used Second Hand Smoke Exposure: No Current occupational status: retired Cognitive needs: No Hearing needs: Yes Vision needs: Yes Questionnaire Medicare Wellness Checkup What is your age?: 82 or older What gender do you identify with?: male During the past 4 weeks, how much have you been bothered by emotional problems such as feeling anxious, depressed, irritable, sad or downhearted, and blue?: not at all During the past 4 weeks, has your physical & emotional health limited your social activities with family, friends, neighbors, or groups?: not at all During the past 4 weeks, how much bodily pain have you generally had?: mild pain During the past 4 weeks, was someone available to help you if you needed & wanted help?: yes, as much as I wanted During the past 4 weeks, what was the hardest physical activity you could do for at least 2 minutes?: moderate Can you get to places out of walking distance without help? (For eg., can you travel alone on buses, taxis or drive your car?): Yes Can you go shopping for groceries or clothes without someone's help?: Yes Can you prepare your own meals?: Yes Can you do your housework without help?: Yes Because of any health problems, do you need the help of another person with your personal care needs such as eating, bathing, dressing or getting around the house?: No Can you handle your own money without help?: Yes During the past 4 weeks, how would you rate your health in general?: excellent During the past 4 weeks how have things been going for you?: pretty well Are you having difficulties driving your car?: no Do you always fasten your seat belt when you are in a car?: yes, usually During past 4 weeks, have you been bothered by the following: never: Falling or dizzy when standing up, Sexual problems?, Trouble eating well?, Teeth or denture problems?, Problems using the telephone? and Tiredness or fatigue? Have you fallen 2 or more times in the past year?: No Are you afraid of falling?: No Are you a smoker?: no During the past 4 weeks, how many drinks of wine, beer, or other alcoholic beverages did you have?: 2-5 drinks per week Do you exercise for about 20 minutes 3 or more times a week?: yes, most of the time Have you been given information to help with the following?: yes: Hazards in your house that might hurt you? and yes: Keeping track of your medications? How often do you have trouble taking medicines the way you have been told to take them?: I always take medicine as prescribed How confident are you that you can control & manage most of your health problems?: very confident What is your race?: White PHQ-9 Over the last 2 weeks, how often have you been bothered by any of the following problems? 1. Little interest or pleasure in doing things: not at all 2. Feeling down, depressed, or hopeless: not at all 3. Trouble falling or staying asleep, or sleeping too much: not at all 4. Feeling tired or having little energy: not at all 5. Poor appetite or overeating: not at all 6. Feeling bad about yourself - or that you are a failure or have let yourself or your family down: not at all 7. Trouble concentrating on things, such as reading the newspaper or watching television: not at all 8. Moving or speaking so slowly that other people could have noticed. Or the opposite - being so fidgety or restless that you have been moving around a lot more than usual: not at all 9. Thoughts that you would be better off or of hurting yourself in some way: not at all Total score: 0 Depression Screening Interpretation: Negative Depression Screening Done: Yes 91382 - PHQ-9 Billing: Yes Source: Developed by Drs. Tor Vigil, Roddy Finch and colleagues, with an educational ugo from [employer]. Thrive Questionnaire Date Thrive assessed: 09/27/23 Are you currently unemployed and looking for a job?: No PATRICIA-7 AMB Questionnaire PATRICIA-7 Date PATRICIA - 7 assessed: 09/27/23 Source: Developed by Drs. Tor Vigil, Roddy Finch and colleagues, with an educational ugo from [employer]. AUDIT C Alcohol Use Questionnaire (AUDIT-C) 1. How often do you have a drink containing alcohol?: 4 or more times a week 2. How many drinks containing alcohol do you have on a typical day when you are drinking?: 1 or 2 3. How often do you have six or more drinks on one occasion?: Never Total Score: 4 Review of Systems Const Denies poor appetite and Denies weakness Eyes Denies no additional complaints ENT Reports Normal hearing present, Denies dizziness, Denies nasal congestion, Denies tinnitus and Denies sore throat Card Denies chest pain, Denies syncope, Denies rapid heart rate and Denies dyspnea Resp Denies cough and Denies dyspnea GI Denies change in stool character, Reports constipation, Denies diarrhea, Denies nausea and Denies vomiting Denies dysuria and Denies urinary frequency Neuro Reports Normal hearing present, Denies confusion, Denies dizziness, Denies syncope and Denies weakness Psych Denies confusion Physical Exam Vital Signs: BMI result Body Mass Index 29.6 Const General: No confusion Orientation/consciousness: No confusion HEENT Head: Yes normocephalic Ears: external ears normal and TM's normal bilaterally Face and sinus: Yes normal facial exam Mouth: moist mucous membranes Throat: Yes tonsils normal Eyes Conjunctivae: conjunctivae normal Pupils: Equal, round and reactive pupils present and Pupil accommodation reflex normal Direct Ophthalmoscopy: normal light reflex Neck Neck: No lymphadenopathy Thyroid: Thyroid normal Chest Chest palpation & inspection: normal inspection of the chest Resp Effort & Inspection: normal respiratory effort and no audible wheezes Auscultation: clear to auscultation bilaterally, no crackles, no wheezes and lung sounds not diminished Cardio Rate: regular rate Rhythm: regular rhythm Peripheral pulses: radial pulses present and dorsalis pedis present GI Other: black stools (on iron) no prostate + hemorrhoids Palpation (GI): no masses Auscultation: normal bowel sounds and normoactive bowel sounds Male General Exam: Yes normal external exam Skin General skin exam: no rashes or lesions noted Rashes: no rashes Neuro General: No confusion Cranial nerves: Yes Equal, round and reactive pupils present and Yes Normal hearing present Cognition (Neuro): normal cognition Gait exam (Neuro): Normal gait present Motor exam (neuro): 5/5 motor strength present throughout Deep tendon reflexes (DTR's): Right brachioradialis reflex intensity grade: 2+, Left brachioradialis reflex intensity grade: 2+, Right patellar reflex intensity grade: 2+ and Left patellar reflex intensity grade: 2+ Extrem General: No edema Assessment & Plan Assessment & Plan (1) Medicare annual wellness visit, subsequent: Code(s): Z00.00 - Encounter for general adult medical examination without abnormal findings Plan: Patient is advised to eat healthy, keep well hydrated, keep active and have adequate sleep. (2) Sandoval's esophagus: Comment: most recent 2017 Code(s): K22.70 - Sandoval's esophagus without dysplasia Qualifiers: Sandoval's esophagus type: without dysplasia Qualified Code(s): K22.70 - Sandoval's esophagus without dysplasia Plan: Avoid the foods that causes that usually spicy foods, tomato products, juices, coffee, soda and foods that your sensitive to. After eating do not lie down, allow 3-4 hours before in lie down. And keep the head of bed above 30 degrees to avoid the acid from going up. On omeprazole (3) Hypertension: Code(s): I10 - Essential (primary) hypertension Qualifiers: Hypertension type: primary hypertension Qualified Code(s): I10 - Essential (primary) hypertension Plan: Continue with blood pressure medication. Decrease salt intake and exercise on lisinopril 20 mg at night and lisinopril 20/25 hydrochlorothiazide in the morning (4) Prostate cancer: Comment: 2011 Dr. Garza Code(s): C61 - Malignant neoplasm of prostate Plan: Continue to follow-up with urology (5) Generalized anxiety disorder: Comment: decline counseling 07/2021 Code(s): F41.1 - Generalized anxiety disorder Plan: Continue with lorazepam as needed (6) Osteoarthritis, hand: Code(s): M19.049 - Primary osteoarthritis, unspecified hand Qualifiers: Laterality: bilateral Osteoarthritis type: primary Qualified Code(s): M19.041 - Primary osteoarthritis, right hand; M19.042 - Primary osteoarthritis, left hand Plan: Continue to follow-up with orthopedics/hand center Quality Reporting (2020) Depression/Bipolar (159/160/161/177) PHQ-9: Total score: 0 Coding Level of Care Code Medicare Subsequent (G0439) Diagnoses Medicare annual wellness visit, subsequent Z00.00 Sandoval's esophagus without dysplasia K22.70 Sandoval's esophagus type: without dysplasia Primary hypertension I10 Hypertension type: primary hypertension Prostate cancer C61 Generalized anxiety disorder F41.1 Primary osteoarthritis of both hands M19.041; M19.042 Laterality: bilateral Osteoarthritis type: primary
[2024-07-05 12:37] VITALS: BP 130/74; PULSE 85; O2SAT 98; BMI 29.6
== END 2024-07-05 13:21 | disposition home or self-care (01) ==
PROVIDERS: PCP Internal Medicine; Visit Provider Internal Medicine
DX: Z00.00 Encounter for general adult medical examination without abnormal findings (principal); C61 Malignant neoplasm of prostate; K22.70 Barrett's esophagus without dysplasia; I10 Essential (primary) hypertension; F41.1 Generalized anxiety disorder; M19.041 Primary osteoarthritis, right hand; M19.042 Primary osteoarthritis, left hand

== ENCOUNTER → 2024-07-05 12:18 | Outpatient (BNVA) | payer MEDICARE, SELFPAY | PROVIDERS: PCP Internal Medicine; Visit Provider Internal Medicine ==

== ENCOUNTER 2024-11-14 14:47 | Outpatient (AMB) | payer MEDICARE, SELFPAY ==
--- NOTE | 2024-11-14 15:09 | MHC.PC.OV ---
Vital Signs 11/14/24 15:11 Height 5 ft 8 in Weight 201 lb 8 oz BMI 30.6 BP 138/80 Blood Pressure Location Lt brachial Position Sitting Pulse 90 Pulse Source Pulse Oximeter Temp 96.4 F L Temp Source Temporal Artery Scan Pulse Oximetry (%) 97 Oxygen Delivery Method Room Air Intake Visit Reasons: Bilateral Shoulder Pain Intake Note: Patient is here to follow up on Bilateral shoulder pain. Medical Record Librarians Teacher Required: No Funeral Arrangement Director: Not Required per policy Accompanied by: Self / Same As Patient Allergies Sulfa (Sulfonamide Antibiotics) Allergy (Intermediate, Verified 11/14/24 15:10) Anxiety sulfamethoxazole [From Bactrim] Allergy (Intermediate, Verified 11/14/24 15:10) Anxiety trimethoprim [From Bactrim] Allergy (Intermediate, Verified 11/14/24 15:10) Anxiety Tobacco use date assessed: 11/14/24 Fall risk assessment: No Falls in past year Last assessed Fall Risk: 11/14/24 Dental Screening Dental Screen Date: 11/14/24 Did you have a dental visit in the last 12 months?: Yes Did you have a dental problem in the last 6 months where you did not have access to dental care?: No Was dental information given to patient?: Patient has dentist HPI Bilateral Shoulder Pain HPI Details 84-year-old male with past medical history of Barretts esophagus, prostate cancer, hypertension, generalized anxiety disorder last seen 06/[address] Luna coming in for acute problem. In review of the notes, patient was seen by [facility] 07/2024 patient was given thumb spica splint bilaterally or daytime activities.?Also recommending rotator cuff strengthening exercises for shoulders bilaterally. Presenting with shoulder pain. The patient reports a history of shoulder pain onset several years ago, initially engaging in physical therapy with positive outcomes but has since lost his exercise regimen instructions. The pain reportedly worsens with overhead activities and lifting, and there has been no recent imaging to evaluate the current condition. The patient prefers to manage the condition with physical therapy only, avoiding other interventions like injections. [facility] Medical History Fatty liver History of renal calculi Prostate cancer Finger fracture, right Anemia Hypertension Sandoval's esophagus Anxiety GERD (gastroesophageal reflux disease) Surgical History History of esophagogastroduodenoscopy (EGD) H/O colonoscopy History of carpal tunnel release History of prostatectomy History of tonsillectomy Family History Father No problems noted. Mother No problems noted. Brother Prostate cancer Daughter No problems noted. Son No problems noted. Social History Housing: House Are you a primary career services officer to a significant other at home: No Do you presently have visiting nurse or other home services: No Alcohol intake: current Alcohol intake frequency: 0-2 drinks per day Alcohol type: wine and hard liquor Comment: QD once cognac Patient Tobacco Use Status: Former Tobacco user Tobacco use type: Cigarette Years Smoked: quit 1999 e-Cigarette/Vaping Use: Never Used Second Hand Smoke Exposure: Yes service: No Current occupational status: retired Cognitive needs: No Hearing needs: Yes Vision needs: Yes Questionnaire PHQ-9 Over the last 2 weeks, how often have you been bothered by any of the following problems? 1. Little interest or pleasure in doing things: not at all 2. Feeling down, depressed, or hopeless: not at all 3. Trouble falling or staying asleep, or sleeping too much: not at all 4. Feeling tired or having little energy: not at all 5. Poor appetite or overeating: not at all 6. Feeling bad about yourself - or that you are a failure or have let yourself or your family down: not at all 7. Trouble concentrating on things, such as reading the newspaper or watching television: not at all 8. Moving or speaking so slowly that other people could have noticed. Or the opposite - being so fidgety or restless that you have been moving around a lot more than usual: not at all 9. Thoughts that you would be better off or of hurting yourself in some way: not at all Total score: 0 Depression Screening Interpretation: Negative Depression Screening Done: Yes Source: Developed by Drs. Tor Vigil, Joy Galvin, Roddy Patton and colleagues, with an educational ugo from [employer]. Thrive Questionnaire Date Thrive assessed: 11/14/24 I am a: Patient What is your living situation today?: I have a steady place to live Within the past 12 months, did the food you bought not last and you didn't have the money to get more?: Never true Within the past 12 months, did you worry whether your food would run out before you got money to buy more?: Never true Do you have trouble paying for medicines?: No Do you have trouble getting transportation to medical appointments?: No Do you have trouble paying your heating and electricity bill?: No Do you have trouble taking care of your child, family member or friend?: No Do you have trouble with day-to-day activities such as bathing, preparing meals, shopping, managing finances, etc.?: No Are you currently unemployed and looking for a job?: No Are you interested in more education?: No Please select the resources that you would like help with: None Currently or been in a relationship where the following occur: No concerns reported THRIVE Score: 0 AUDIT C Alcohol Use Questionnaire (AUDIT-C) 2. How many drinks containing alcohol do you have on a typical day when you are drinking?: 1 or 2 3. How often do you have six or more drinks on one occasion?: Never Total Score: 0 PATRICIA-7 AMB Questionnaire PATRICIA-7 Date PATRICIA - 7 assessed: 11/14/24 Feeling nervous, anxious, or on edge: 0 = Not at all Not being able to stop or control worryin = Not at all Worrying too much about different things: 0 = Not at all Trouble relaxin = Not at all Being so restless that it is hard to sit still: 0 = Not at all Becoming easily annoyed or irritable: 0 = Not at all Feeling afraid as if something awful might happen: 0 = Not at all Total PATRICIA-7 score (0-4 normal; 5-9 mild; 10-14 moderate; 15-21 severe): 0 Source: Developed by Drs. Tor Vigil, Joy Galvin, Roddy Patton and colleagues, with an educational ugo from [employer]. Review of Systems Const Denies body aches, Denies chills, Denies fever(s) and Denies poor appetite Eyes Reports no additional complaints ENT Reports no additional complaints Card Denies chest pain, Denies lightheadedness and Denies dyspnea Resp Denies cough and Denies dyspnea GI Reports no additional complaints Reports no additional complaints Musc Reports as per HPI and Denies abnormal gait Skin/Breast Reports system reviewed and no additional complaints, except as documented Neuro Denies abnormal gait Psych Reports no additional complaints Physical exam (Primary Care) Vital Signs: Last Vital Signs Temp 96.4 F L 11/14/24 15:11 Oxygen Delivery Method Room Air 11/14/24 15:11 BMI result Body Mass Index 30.6 Tobacco/Smoking Status: Tobacco use Status Tobacco use date assessed 11/14/24 11/14/24 15:14 Patient Tobacco Use Status Former Tobacco user 11/14/24 15:14 Tobacco use type Cigarette 11/14/24 15:14 e-Cigarette/Vaping Use Never Used 11/14/24 15:14 PHQ-9: PHQ-9 Score PHQ-9: Total score 0 11/14/24 15:14 Depression Screening Interpretation: Negative Thrive Assessment: Date of Thrive Assessment Date Thrive assessed 11/14/24 11/14/24 15:14 Currently or been in a relationship where the following occur: No concerns reported Const General: cooperative, healthy appearing, comfortable and no acute distress Orientation/consciousness: patient oriented x3 HENMT Head: Yes normocephalic Ears: hearing grossly normal bilaterally General nose exam: Normal external nose present Eyes General: appearance normal, both eyes and all related structures Conjunctivae: conjunctivae normal Neck Neck: Yes full ROM and Yes no lymphadenopathy Resp Effort & Inspection: normal respiratory effort Auscultation: clear to auscultation bilaterally, no crackles, no rales, no rhonchi and no wheezes Cardio Rate: regular rate Rhythm: regular rhythm Skin General skin exam: no rashes or lesions noted Neuro General: patient oriented x3 Gait exam (Neuro): Normal gait present Extrem Other: Pain to palpation over bilateral shoulders. Pain with active range of motion with internal rotation and extension shoulders bilaterally General: Yes normal to inspection, Yes full ROM and No edema Psych Affect: normal affect Attitude: cooperative Insight: Good insight present (Psych) Judgement: Good judgement present (Psych) Coding Level of Care Code Est Pt Level 3 (03610) Diagnoses Primary hypertension I10 Hypertension type: primary hypertension GERD (gastroesophageal reflux disease) K21.9 Bilateral shoulder pain M25.511; M25.512 Assessment & Plan Assessment & Plan (1) Hypertension: Code(s): I10 - Essential (primary) hypertension Category: Medical Qualifiers: Hypertension type: primary hypertension Qualified Code(s): I10 - Essential (primary) hypertension Plan: Continue on current blood pressure medication. Avoid salt intake and encourage healthy diet and regular exercise. (2) GERD (gastroesophageal reflux disease): Code(s): K21.9 - Gastro-esophageal reflux disease without esophagitis Category: Medical Plan: Avoid trigger foods such as citrus, tomato products, soda, caffeine, spicy foods and other foods that may be irritating to your stomach. Avoid laying flat 3-4 hours after eating and elevate the head of the bed 30 degrees to prevent acid from moving into the esophagus. Continue on omeprazole (3) Bilateral shoulder pain: Code(s): M25.511 - Pain in right shoulder; M25.512 - Pain in left shoulder Category: Medical Plan: The management plan centers on addressing the patient's shoulder pain with a referral for physical therapy. The patient has beneficial past experience with this approach, and a referral was made for the patient to initiate therapy at a location of his choice. No additional interventions like injections or imaging were pursued due to patient preference. Follow-up care with Dr. Luna is scheduled for December to assess treatment progress and make any necessary adjustments. Plan Patient was informed and verbally consented to the use of an ambient scribe for clinic note documentation during this visit. This note was constructed using voice recognition software. While every effort has been made to ensure accuracy and top former, still areas may have been included sometimes these areas may affect the content or meeting of the given symptoms. Total time spent caring for the patient today was 20 minutes. This includes time spent before the visit reviewing the chart, time spent during the visit, and time spent after the visit and documentation. Orders: Orders PT Evaluation and Treatment Today M25.511 - Pain in right shoulder, M25.512 - Pain in left shoulder
[2024-11-14 15:11] VITALS: BP 138/80; PULSE 90; TEMP 35.8; O2SAT 97; BMI 30.6
--- OUTSIDE RECORDS SUMMARY | 2024-11-14 15:55 | XMS_ITS | Clinical Summary ---
Author Organization [facility] Address [address] [place] [address] Care Team Providers Care Librarian School Name Role Phone Ruby Luna MD Primary Care Provider [phone] Allergies Active Allergy Reactions Criticality Noted Date Comments Sulfamethoxazole-Trimet hoprim Other (See Comments) 11/07/2016 Unable to describe Iodinated Contrast Media Unknown/Patient and Family Unable to Define Medium 08/28/2019 Red Dye #40 (Allura Red) GI Intolerance/Nausea/V omiting Low 08/29/2017 Sulfa Antibiotics Unknown/Patient and Family Unable to Define Medium 08/28/2019 Medications Medication Sig Dispensed Refills Start Date End Date Status OMEprazole (PriLOSEC) 20 MG capsule Take 1 capsule (20 mg total) by mouth every morning before breakfast. Active ferrous sulfate 325 (65 FE) MG tablet Take 1 tablet (325 mg total) by mouth daily. Take 2 hours before or 4 hours after acid reducers. Active ascorbic acid (VITAMIN C) 500 MG tablet Take 1 tablet (500 mg total) by mouth daily. Active cholecalciferol (VITAMIN D3) 1000 units capsule Take 1 capsule (1,000 Units total) by mouth daily. Active magnesium gluconate (MAGONATE) 500 (27 MG) MG tablet Take 1 tablet (500 mg total) by mouth 2 (two) times a day. Active LORazepam (ATIVAN) 0.5 MG tablet Take 1 tablet (0.5 mg total) by mouth once as needed for anxiety. Active nystatin (MYCOSTATIN) 038422 UNIT/GM creamIndications:Double Spring nitis Apply topically 2 (two) times a day. 30 g 08/29/2018 Active lisinopril-hydrochlor othiazide (PRINZIDE,ZESTORETIC) 20-25 MG per tablet Take 1 tablet by mouth daily. 1 07/28/2019 Active Multiple Vitamins-Minerals (OCUVITE EXTRA PO) Take by mouth. Ac tive lisinopril (PRINIVIL,ZeSTRIL) 20 MG tablet Take 1 tablet (20 mg total) by mouth nightly. Active tadalafil (CIALIS) 20 MG tabletIndications:Ere ctile dysfunction after radical prostatectomy Take 1 tablet (20 mg total) by mouth daily as needed for erectile dysfunction. 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 Hypertensive disorder 09/11/2018 History of malignant neoplasm of prostate 2017 Iron deficiency anemia 09/11/2018 Immunizations Name Administration Dates Next Due Influenza Inactivated/Split Preservative Free IM 05/31/2019 Influenza, Quadrivalent 05/18/2018 Pneumococcal Conjugate 13-Valent 05/26/2015 Pneumococcal Polysaccharide 23-Valent 05/26/2012 Tdap 05/31/2019 Zoster Vaccine Recombinant (Shingrix) 03/25/2012 Family History Medical History Relation Name Comments Cancer Father CA origin unknown Cancer, Prostate Father No Known Problems Mother Relation Name Status Comments Father Mother Social History Tobacco Use Types Packs/Day Years Used Date Smoking Tobacco: Former Cigarettes 1 30 0 11/07/1968 - 11/07/1998 Smokeless Tobacco: Never Tobacco Cessation:Counseling Given: Not Answered Alcohol Use Standard Drinks/Week Comments Yes 0 (1 standard drink = 0.6 oz pur e alcohol) Sex and Gender Information Value Date Recorded Sex Assigned at Not on file Gender Identity Not on file Sexual Orientation Not on file Last Filed Vital Signs Vital Sign Reading Time Taken Comments Blood Pressure 128/84 08/29/2017 10:37 AM EST Pulse - - Temperature 36.4 ??C (97.6 ??F) 08/23/2022 12:[address] Respiratory Rate 16 08/18/2021 11:15 AM EST Oxygen Saturation - - Inhaled Oxygen Concentration - - Weight 90.7 kg (200 lb) 08/23/2022 12:21 PM EST Height 172.7 cm (5' 8 ) 08/23/2022 12:21 PM EST Body Mass Index 30.41 08/23/2022 12:21 PM EST Plan of Treatment Health Maintenance Due Date Last Done Comments Zoster (Shingles) Vaccine (2 of 2) 05/20/2012 03/25/2012 RSV Vaccine 60 years and older and Patients (1 - 1-dose 75+ series) 2017 Influenza Vaccine 04/25/2024 05/31/2019, 05/18/2018 COVID-19 Vaccine (1 - 2023-2 5 season) 2024 DTaP/Tdap/Td Vaccines (2 - T d or Tdap) 05/31/2029 05/31/2019 Pneumococcal Vaccines 50+ Completed 2014, 05/26/2012 Hepatitis B Vaccines Aged Out No long er eligible based on patient's age to complete this topic Care Teams Librarian School Relationship Specialty Start Date End Date Ruby Luna MD [address] [place] [address] [place] [address] PCP - General Internal Medicine 08/13/20
--- OUTSIDE RECORDS SUMMARY | 2024-11-14 15:55 | XMS_ITS ---
Author Organization [facility] Address [address] [place] [id number] Care Team Providers Care Saw Maker Name Role Phone Po Ruby MILLER Primary Care Provider Tor Kirk [phone] REASON FOR VISIT diverticulitis MEDICATIONS Medication SIG (Take, Route, Frequency, Duration) Notes Start Date End Date Status Amoxicillin-Pot Clavulanate 875-125 MG 1 tablet Orally every 12 hrs for 10 day(s) 06/13/2023 Active Encounters Encounter Location Date Provider Diagnosis [facility] [address] [phone] 06/13/2023 Tor Song PLAN OF TREATMENT Medication Medication Name Sig Start Date Stop Date Notes Amoxicillin-Pot Clavulanate 875-125 MG 1 tablet Orally every 12 hrs for 10 day(s) 06/13/2023
--- OUTSIDE RECORDS SUMMARY | 2024-11-14 15:56 | XMS_ITS ---
Author Organization [facility] Address [address] [place] [address] Care Team Providers Care Cable Driller Name Role Phone Ruby Luna MD Primary Care Provider Tor Kirk [phone] REASON FOR VISIT rectal bleeding Encounters Encounter Location Date Provider Diagnosis [facility] [address] [place] [phone] 05/20/2024 Tor Song PLAN OF TREATMENT No Information
--- OUTSIDE RECORDS SUMMARY | 2024-11-14 15:57 | XMS_ITS | Encounter Summary ---
Author Organization [facility] Address [address] [place] [address] Care Team Providers Care Histology Technician Name Role Phone Pcp, Brandi Primary Care Provider Brenton Card MD Primary Care Provider [phone] Axel Medina DO Primary Care Provider [phone] Ruby Luna MD Primary Care Provider [phone] Encounter Details Date Type Department Care Team (Late st Contact Info) Description 07/13/2016 [facility] Urologic Surgery [address] [place] [address] Hakeem Mcdaniel APRN [address] [id number] Social History Tobacco Use Types Packs/Day Years Used Date Smoking Tobacco: Never Assessed Sex and Gender Information Value Date Recorded Sex Assigned at Not on file Gender Identity Not on file Sexual Orientation Not on file documented as of this encounter Plan of Treatment Not on file documented as of this encounter Visit Diagnoses Not on filedocumented in this encounter Care Teams Histology Technician Relationship Specialty Start Date End Date Pcp, No PCP - General General Medicine 07/20/16 11/06/16 Brenton Rosas MD [address] [place] [address] [address] [place] [address] PCP - General 11/07/16 08/28/17 Axel Medina DO [address] [place] [address] [address] [place] [address] PCP - General 08/29/17 08/12/20 Po, Ruby Gresham MD [address] [place] [address] PCP - General Internal Medicine 08/13/20 documented as of this encounter
--- OUTSIDE RECORDS SUMMARY | 2024-11-14 15:57 | XMS_ITS ---
Author Name [facility] Organization Unknown History of Medication Use Medication Directions Dispensed Refills Start Date End Date Stat ferrous sulfate 325 (65 FE) MG tablet Take 325 mg by mouth daily. Take 2 hours before or 4 hours after acid reducers. active lisinopril-hydrochl orothiazide (PRINZIDE,ZESTORETI C) 20-25 MG per tablet Take 1 tablet by mouth daily. 07/28/2019 active LORazepam (ATIVAN) 0.5 MG tablet Take 1 tablet (0.5 mg total) by mouth once as needed for anxiety. active tadalafil (CIALIS) 20 MG tablet Take 1 tablet (20 mg total) by mouth daily as needed for erectile dysfunction. 08/18/2021 08/23/2022 active OMEprazole (PriLOSEC) 20 MG capsule Take 1 capsule (20 mg total) by mouth every morning before breakfast. 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
--- OUTSIDE RECORDS SUMMARY | 2024-11-14 15:57 | XMS_ITS | Data Portability ---
Author Organization [facility] Service Address [address] [place] [address] Assessment No assessment recorded. Plan of Treatment Reminders Order Date Submit Date Provider Last Modified By Organization Details Last Modified Time Details Appointments None recorded. Lab CMP, serum or plasma 2018 019 [facility], [address] [place] [address], [id number], 9 08:15:38 lipid panel, blood 2018 019 [facility], [address] [place] [address], [address], 9 08:15:39 CBC 2018 019 [facility], [address] [place] [address], [address], 9 08:15:39 iron + TIBC + ferritin, serum 2018 019 [facility], [address] [place] [address], [address], 9 08:15:39 vitamin B12 + folate, serum or blood 2018 019 [facility], [address] [place] [address], [address], 9 08:15:39 urinalysis , dipstick 2018 019 [facility], [address] [facility], [address], [place], [address], 9 14:40:47 CMP, serum or plasma 2017 018 [facility], [address] [place] [address], [address], 8 08:05:27 hepatitis C Ab, serum 2017 018 [facility], [address] [place] [address], [address], 8 08:05:28 lyme disease igg+igm, serum, reflex western blot 2017 018 [facility], [address] [place] [address], [address], 8 08:05:28 iron + TIBC + ferritin, serum 2017 018 [facility], [address] [place] [address], [address], 8 08:05:27 CBC 2017 018 [facility], [address] [place] [address], [address], 8 08:05:27 Referral None recorded. Procedures None recorded. Surgeries None recorded. Imaging None recorded. Medication Orders lisinopril 20 mg-hydroch lorothiazi de 25 mg tablet 2018 019 [id number], [address] [place], [address], 9 14:02:43 lorazepam 0.5 mg tablet 2018 019 [id number], [address] [place], [address], 9 14:40:49 Patient TargetsNo targets recorded. Patient Instructions Encounter Date Encounter Id Patient Instructions Last Modified By Organization Details Last Modified Time 09/12/2018 [id number] Schedule CPE rosy Not available 15:25:00 05/01/2019 [id number] advance care planning: care instructions Not available 05/01/2019 13:54:34 elevated blood pressure: care instructions Not available 05/01/2019 13:54:34 olsen's esophagus: care instructions Not available 05/01/2019 13:54:34 iron deficiency anemia: care instructions Not available 05/01/2019 13:54:34 body mass index: care instructions Not available 05/01/2019 13:54:34 learning about healthy weight Not available 05/01/2019 13:54:34 Reason for Referral None Reported. Results Created Date Observation Date Name Description Value Unit Range Abnormal Flag Note LastModifiedBy Organization Detail LastModifiedTime 12/12/19 19 12/11/2018 urina lysis , dipst ick Leukocytes Negati ve Not Available [address], [address], 12/11/2018 14:13:09 12/12/19 19 12/11/2018 urina lysis , dipst ick Nitrite negati ve Not Available [address], [place], [address], 12/11/2018 14:13:09 12/12/1912/11/2018 urina lysis , dipst ick Urobilinogen .2 Not Available [address], [place], [address], 12/11/2018 14:13:09 12/12/1912/11/2018 urina lysis , dipst ick Protein Negati ve Not Available [address], [place], [address], 12/11/2018 14:13:09 12/12/1912/11/2018 urina lysis , dipst ick pH 6.0 Not Available [address], [place], [address], 12/11/2018 14:13:09 12/12/1912/11/2018 urina lysis , dipst ick Blood Negati ve Not Available [facility] [address] [facility] [address], [place], [address], 12/11/2018 14:13:09 12/12/1912/11/2018 urina lysis , dipst ick Specific [place] 1.025 Not Available [facility] [address] [facility] [address], [place], [address], 12/11/2018 14:13:09 12/12/1912/11/2018 urina lysis , dipst ick Ketone Negati ve Not Available [facility] [address] [facility] [address], [place], [address], 12/11/2018 14:13:09 12/12/1912/11/2018 urina lysis , dipst ick Bilirubin Negati ve Not Available [facility] [address] [facility] [address], [place], [address], 12/11/2018 14:13:09 12/12/1912/11/2018 urina lysis , dipst ick Glucose Negati ve Not Available [facility] [address] [facility] [address], [place], [address], 12/11/2018 14:13:09 12/12/1912/11/2018 urina lysis , dipst ick Appearance Clear Not Available [facility] [address] [facility] [address], [place], [address], 12/11/2018 14:13:09 12/12/1912/11/2018 urina lysis , dipst ick Color Pale Yellow Not Available [facility] [address] [facility] [address], [place], [address], 12/11/2018 14:13:09 02/26/20 20 XR, finge r(s), 2 or more view No observ ation record ed. [email or web address] Not Available 2019 08:48:31 Result Notes None recorded. Problems Name Problem SNOMED Code Status Onset Date Resolution Date Notes Provider Name and Address Organization Details Recorded Time Olsen's esophagus 842027431 Active 2017 Yumi morocho [facility] 8 15:30:28 History of malignant neoplasm of prostate 294366094 Active 2017 Yumi morocho [facility] 8 15:30:51 Iron deficiency anemia 20482795 Active 2017 Yumi morocho [facility] 8 15:31:22 Hypertensi ve disorder 00452952 Active 2017 Yumi morocho [facility] 8 15:31:28 Essential hypertensi on 75348834 [facility], [address], [facility] 9 14:01:34 Problem Notes None recorded. Procedures Surgical History Date Name Laterality Status Provider Name and Address Organization Details Recorded Time 4 Colonoscopy completed Yumi Parra [facility] 09/11/2018 15:31:56 Imaging Results Imaging Date Name Status LastModified by Organiz ation Details LastModified Time 02/26/2020 XR, finger(s), 2 or more view completed [email or web address] Information not available 02/28/2020 08:48:31 Procedure Notes None recorded. Medical Equipment None Reported. Allergies Allergen ID Allergen Name Allergen Category Reaction Reaction Severity Criticality Documentation Date Start Date Code Code System Note Provider Name and Address Organization Details Recorded Time 2626 Substance with sulfonami de structure and antibacte rial mechanism of action (substanc e) medicatio n Not available Not available Not available 09/11/2018 58317 8003 SNOMED Yumi morocho [facility] 8 15:29:54 2627 Iodinated contrast media (substanc e) medicatio n Not available Not available Not available 09/11/2018 29810 2004 SNOMED Yumi morocho [facility] 8 15:30:15 2922 Bactrim medicatio n Not available Not available Not available 12/11/2018 06345 9 RxNorm Yumi morocho [facility] 9 14:10:52 Medications Name Sig Start Date Stop Date Status Note LastModified by Organization Details LastModified Time azithromycin 250 mg tablet active Not Available Not Available Not Available lisinopril 20 mg tablet active Not Available Not Available Not Available lorazepam 0.5 mg tablet TAKE 1 TABLET BY MOUTH DAILY NEEDED active Not Available Not Available No t Available cephalexin 500 mg capsule active Not Available Not Available Not Available erythromycin 5 mg/gram (0.5 %) eye ointment 12/11 completed Not Available Not Available Not Available omeprazole 20 mg capsule,juan yed release Take 1 capsule every day by oral route for 90 days. active Not Available Not Available No t Available lisinopril 20 mg-hydrochlo rothiazide 25 mg tablet TAKE 1 TABLET BY MOUTH TWICE A DAY NEEDS APPT FOR FURTHER REFILLS PLEASE CALL OFFICE TO SET UP APPT active Not Available Not Available No t Available methylpredni solone 4 mg tablets in a dose pack active Not Available Not Available No t Available ciclopirox 0.77 % topical cream active Not Available Not Available Not Available Boostrix Tdap 2.5 Lf unit-8 mcg-5 Lf/0.5 mL intramuscula r syringe active Not Available Not Available No t Available Vitals Date Recorded Body height Body mass index (BMI) Body weight Heart rate Oxygen saturation Oxygen saturation in Arterial blood by Pulse oximetry Systolic blood pressure Diastolic blood pressure Provider Name and Address Organization Details Last Updated DateTime 8 169.55 cm 33.5 kg/m2 12820.5 8 g 99 /min 99 % 99 % 122 mm[Hg] 78 mm[Hg] Suzanne Sheikh [facility] 8 14:56:33 Date Recorded Body height Body mass index (BMI) Body weight Heart rate Oxygen saturation Oxygen saturation in Arterial blood by Pulse oximetry Systolic blood pressure Diastolic blood pressure Provider Name and Address Organization Details Last Updated DateTime 9 169.55 cm 33.5 kg/m2 13890.0 2 g 99 /min 98 % 98 % 140 mm[Hg] 68 mm[Hg] Yumi Meadowsnaveen [facility] 9 14:12:40 Date Recorded Heart rate Systolic blood pressure Diastolic blood pressure Provider Name and Address Organization Details Last Updated DateTime 12/11/2018 86 /min 128 mm[Hg] 70 mm[Hg] Sonya Mane NP, [address] [place] [address], [address], [facility] 12/11/2018 14:34:07 Date Recorded Body height Body mass index (BMI) Body weight Heart rate Oxygen saturation Oxygen saturation in Arterial blood by Pulse oximetry Systolic blood pressure Diastolic blood pressure Provider Name and Address Organization Details Last Updated DateTime 9 169.55 cm 32.9 kg/m2 18896.0 9 g 82 /min 96 % 96 % 128 mm[Hg] 80 mm[Hg] Ceci Durant [facility] 9 13:40:39 Social History Question Answer Notes LastModified by [email or web address] Details LastModified Time Tobacco Smoking Status Former Smoker Not Available [facility] 07/28/2020 03:36:24 What Was The Date Of Your Most Recent Tobacco Screening? 12/11/2018 [id number] Information not available 07/28/2020 Sex: Unknown Functional Status None recorded. Mental Status None recorded. Family History Nothing Reported. Medical History No medical history recorded. Immunizations Vaccine Type Date Status Note Provider Nam e and Address Organization Details Recorded Time pneumococcal polysaccharide PPV23 05/26/20 12 completed [facility] [address] [place] [address], [address], [facility] [place] [facility] 05/01/2019 13:56:36 Pneumococcal conjugate PCV 13 05/26/20 15 completed [facility] [address] [place] [address], [address], [facility] [place] [facility] 05/01/2019 13:56:55 zoster recombinant 03/25/20 12 completed Katey AKOSUA Hooks [address] [place] [address], [address] 05/01/2019 13:57:16 Influenza, split virus, quadrivalent, preservative 05/18/20 18 [facility] 09:25:30 Past Encounters Encounter ID Performer Location Encounter Start Date Encounter Closed Date Diagnosis/Indication Diagnosis SNOMED-CT Code Diagnosis ICD10 Code Diagnosis Note [id number] Sonya Mane NP, [facility] [address] [facility],[place] [address] 09/12/2018 14:47:50 09/21/2018 08:53:47 Pre-surgery evaluation 480165623 Z01.818 await labs Hypertensive disorder 38 476970 I10 Olsen's esophagus 3029 86460 K22.70 on omeprazole , up to date with Dr. Loving History of malignant neoplasm of prostate 882790247 Z85.46 recent normal urological exam Iron defic iency anemia 39813723 D50.9 Screening procedure 2012 5006 Z13.9 [id number] Sonya Mane NP, [facility] [address] [facility], [place] [address] 12/11/2018 14:00:30 12/12/2018 08:13:30 Adult health examination 049014176 Z00.01 Active or passive immunization 480423731 Z23 Anxiety 10357775 F41.9 Olsen's esophagus 3029 17774 K22.70 on omeprazole , up to date with Dr. Loving Hypertensive disorder 38 429778 I10 stable History of malignant neoplasm of prostate 483762097 Z85.46 saw urologist in August AKOSUA Hooks [facility] [address] [facility], [facility] [place] [address] 05/01/2019 13:33:43 05/01/2019 14:09:06 Advance care planning 172966351 Z71.89 has hcp/will Body mass index 30+ - obesity 861771288 Z68.32 Hypertensive disorder 38 634726 I10 stable/wel l controlled Iron defic iency anemia 96038597 D50.[address] loving for this Olsen's esophagus [address] loving for this Active or passive immunization 924607479 Z23 Essential hypertension 97854345 I10 Health Concerns Section Related Observation LastModified by Organization Detai ls LastModified Time None Recorded Concern Status LastModified by Organization Details LastModified Time None Recorded Advance Directives Directive None Recorded Payers Encounter Date Sequence Insurance Name Policy Number Policy Denny Covered Member ID Denny Member ID Guarantor Name 09/12/2018 2 [place] [id number] Randal Nguyen [id number] Randal Petersonzak 09/12/2018 1 [place] Randal Nguyen [id number] Randal Nguyen 12/11/2018 2 [place] [id number] Randal Nguyen [id number] Randal Petersonzak 12/11/2018 1 [place] Randal Nguyen [id number] Randal Daiglek 05/01/2019 2 [place] [id number] Randal Nguyen [id number] Randal Nguyen 05/01/2019 1 [place] Randal Nguyen [id number] Randal Petersonzak Notes Date Note Type Note Provider Name a mo Address Organization Details Recorded Time 8 text/html Pre-OpReported bypatient.Surgery to be Performed:blepharopla sty and removal mole left lid Severity:moderate Risk Factorsno cognitive impairment; no functional impairment; no malnutrition; no frailty; able to climb a flight of stairs (exercise capacity>4 METS); no obstructive sleep apnea; non-smoker; no alcohol misuse; no illicit drug use;chronic cardiopulmonary condition;obese; HTN, BMI 33.5 Anesthesia hx:no hx of anesthesia complications; no allergy to anesthetic agents; no family history of anesthesia complications Functional Ability:able to walk up stairs; able to perform heavy work around the house; no difficulty walking up hills Post-Op Support:no need for assistance; adequate assistance at home; needs help arranging assistance after discharge Sonya Mane NP, S [address] [facility], [place], [address], [facility] [place] [facility] 09/12/2018 15:26:39 9 text/html Annual WellnessReported bypatient.Diet and Nutrition:healthy diet;high caloric intake Fracture Risk:no history of fractures; no recent explained fracture; no sudden unexplained fractures; no previous musculoskeletal injuries Physical Activity:exercises on a regular basis; good physical condition Additional Lifestyle Factors:no tobacco use; drinks alcohol (mild-moderate) Depression Risk:never feels sad, empty, or tearful; no loss of interest in activities; no significant changes in weight; no sleep disturbances or insomnia; no agitation; no loss of energy; no feelings of worthlessness or guilt; no thoughts of suicide; no history of depression; no history of mood disorders Hearing:wears hearing aids Vision:no vision problems; wears glasses Sonya Mane NP, S [address] [place] [address], [address], [facility], [place] [facility] 12/11/2018 15:35:04
--- OUTSIDE RECORDS SUMMARY | 2024-11-14 15:57 | XMS_ITS | Patient Health Record ---
Author Organization [facility] Address [address] [place] [address] Care Team Providers Care Music Library Assistant Name Role Phone Po Ruby MILLER Primary Care Provider Tor Kirk [phone] ALLERGIES Allergen (clinical drug ingredient) Drug/Non Drug Allergy documented on EMR Reaction Allergy Type Onset Date Status sulfamethoxazole / trimethoprim Bactrim Unknown Drug Allergy Active IVP Dye (uncoded) Unknown Allergy Ac tive REASON FOR REFERRAL No Information MEDICATIONS Medication SIG (Take, Route, Frequency, Duration) Notes Start Date End Date Status Vitamin C 500 MG 1 tablet Orally Once a day Active Vitamin D 1000 UNIT 1 tablet Orally Once a day Active Iron 325 (65 Fe) MG 1 tablet Orally Once a day Active Lisinopril-hydroCHLOROthiaz travon 20-25 MG 1 tablet Orally twice a day Active Amoxicillin-Pot Clavulanate 875-125 MG 1 tablet Orally every 12 hrs for 10 day(s) 06/13/2023 Active Magnesium 500 MG 1 tablet Orally Once a day Active Omeprazole 20 MG 1 tablet Orally Once a day for 90 days 03/13/2014 Active LORazepam 0.5 MG 1 tablet as needed O rally as needed Active IMMUNIZATIONS Vaccine Route Administration Date Status Comme nts Influenza Unknown 07/19/2017 Administered Influenza Unknown 05/26/2021 Administered SOCIAL HISTORY Sex Assigned At : Social History Observation Description Sex Assigned At Unknown Alcohol Screen Question Answer Notes Did you have a drink contain ing alcohol in the past year? Yes How often did you have a dri nk containing alcohol in the past year? 4 or more times a week (4 points) How many drinks did you have on a typical day when you were drinking in the past year? 1 or 2 drinks (0 point) How often did you have 6 or more drinks on one occasion in the past year? Never (0 point) Points 4 Interpretation Positive PROBLEMS Problem Type ICD Code Onset Dates Problem Status W/U Status Risk SNOMED Code Notes Problem Diverticulitis of both small and large intestine without perforation or abscess without bleeding (K57.52) Active confirmed Diverticul itis (746292506) Problem Diverticulitis (K57.92) Active confirmed Diverticulitis (424937651) Problem Barretts esophagus without dysplasia (K22.70) Active confirmed 794169293 Problem Iron deficiency anemia due to chronic blood loss (D50.0) Active confirmed 72729842 Problem Diverticulosis of sigmoid colon (K57.30) Active confirmed Diverticulosis of sigmoid colon (142878435) Problem Abnormal computed tomography of large intestine (R93.3) Active confirmed X-ray of gastrointestinal tract abnormal (517206186) Encounters Encounter Location Date Provider Diagnosis [facility] [address] [facility] [address] [place] [address] 05/20/2024 Tor Song PLAN OF TREATMENT Pending Test Test Name Order Date IRON + IBC (FE) 07/20/2017 FERRITIN 07/20/2017 FERRITIN 08/09/2019 CBC w DIFF 07/20/2017 CBC w DIFF 03/13/2014 CBC w DIFF 08/09/2019 Future Test Test Name Order Date UPPER GI ENDOSCOPY 03/13/2014 COLONOSCOPY 03/13/2014 UPPER GI ENDOSCOPY 07/20/2017 COLONOSCOPY 05/21/2022 Insurance Providers Payer Name Payer Address Payer Phone Subscriber Number Group Number Insured Name Patient Relationship to Insured Coverage Start Date Coverage End Date MEDICARE OF [place] [address] [facility] [place] [address] [id number] FELISHA SANDHU Self - patient is the insured MEDEX ATTN CLAIMS [address] [place] [address] [id number] FELISHA SANDHU Self - patient is the insured MEDICAL (GENERAL) HISTORY Medical History History ICD Code Anemia--EGD with duodenal bx negative for celiac disease in 2006--the anemia was felt to be due to his angiodysplasias and chronic GERD Cecal AVM's in 2006--colonoscopies other parker negative in 1997 and 2006 GERD, Sandoval's esophagus--E GD in 07/2012--small HH, Biopsies neg for dysplasia--had indefinite dysplasia in 01/2012 Kidney stones Denies [place],DM,CVA,Lung disease,renal dise ase HTN EGD 04/2014--small area of Ba rrett's-no dysplasia, neg. duodenal biopsies, small to moderate-sized HH Colonoscopy in 04/2014 with o nly a hyperplastic polyp, AVM's in cecum and ascending colon, sigmoid diverticulosis, internal/external hemorrhoids EGD in November of 2017 with hi s known small area of Sandoval's esophagus with biopsies negative for dysplasia. There was no esophagitis Prostate cancer as below ? of Diverticulitis in 2013--he did not have a CAT scan--treated with antibiotics with relief Sigmoid Diverticulitis on CT in 01/2022-treated with outpatient antibiotics- Augmentin Renal cysts vs. renal mass o n the above CT scan. He is going to review this with his urologist in [place] to see whether he should go for a MRI. Surgical History Surgery Date(Month/Year) Laparoscopic prostatectomy in 04/2012 for prostate cancer Tonsillectomy Vasectomy Basal cell cancer on face liptotripsy
== END 2024-11-14 15:26 | disposition home or self-care (01) ==
PROVIDERS: PCP Internal Medicine
DX: I10 Essential (primary) hypertension (principal); K21.9 Gastro-esophageal reflux disease without esophagitis; M25.511 Pain in right shoulder; M25.512 Pain in left shoulder

== ENCOUNTER → 2024-11-14 14:47 | Outpatient (BNVA) | payer MEDICARE, SELFPAY | PROVIDERS: PCP Internal Medicine | DX: I10 Essential (primary) hypertension (principal); K21.9 Gastro-esophageal reflux disease without esophagitis; M25.511 Pain in right shoulder; M25.512 Pain in left shoulder | CPT/HCPCS: 99212 ==

== ENCOUNTER 2025-01-03 11:20 | Outpatient (AMB) | payer MEDICARE, SELFPAY ==
[2025-01-03 11:22] VITALS: BP 148/78; PULSE 86; O2SAT 97; BMI 30.6
--- NOTE | 2025-01-03 11:22 | MHC.PC.OV ---
Vital Signs 01/03/25 11:22 01/03/25 11:40 Height 5 ft 8 in Weight 201 lb BMI 30.6 BP 148/78 H 127/80 Blood Pressure Location Lt brachial Lt radial Position Sitting Sitting Pulse 86 Pulse Source Pulse Oximeter Pulse Oximetry (%) 97 Oxygen Delivery Method Room Air Intake Visit Reasons: Hypertension Allergies Sulfa (Sulfonamide Antibiotics) Allergy (Intermediate, Verified 01/03/25 11:23) Anxiety sulfamethoxazole [From Bactrim] Allergy (Intermediate, Verified 01/03/25 11:23) Anxiety trimethoprim [From Bactrim] Allergy (Intermediate, Verified 01/03/25 11:23) Anxiety Tobacco use date assessed: 11/14/24 Fall risk assessment: No Falls in past year Last assessed Fall Risk: 01/03/25 Dental Screening Dental Screen Date: 11/14/24 HPI Hypertension HPI Details BP at home 127/70 [facility] Medical History Fatty liver History of renal calculi Prostate cancer Finger fracture, right Anemia Hypertension Sandoval's esophagus Anxiety GERD (gastroesophageal reflux disease) Surgical History History of esophagogastroduodenoscopy (EGD) H/O colonoscopy History of carpal tunnel release History of prostatectomy History of tonsillectomy Family History Father No problems noted. Mother No problems noted. Brother Prostate cancer Daughter No problems noted. Son No problems noted. Social History Housing: House Are you a primary client care consultant to a significant other at home: No Do you presently have visiting nurse or other home services: No Alcohol intake: current Alcohol intake frequency: 0-2 drinks per day Alcohol type: wine and hard liquor Comment: QD once cognac Patient Tobacco Use Status: Former Tobacco user Tobacco use type: Cigarette Years Smoked: quit 1999 e-Cigarette/Vaping Use: Never Used Second Hand Smoke Exposure: Yes service: No Current occupational status: retired Cognitive needs: No Hearing needs: Yes Vision needs: Yes Questionnaire PHQ-9 Over the last 2 weeks, how often have you been bothered by any of the following problems? 1. Little interest or pleasure in doing things: not at all 2. Feeling down, depressed, or hopeless: not at all 3. Trouble falling or staying asleep, or sleeping too much: not at all 4. Feeling tired or having little energy: not at all 5. Poor appetite or overeating: not at all 6. Feeling bad about yourself - or that you are a failure or have let yourself or your family down: not at all 7. Trouble concentrating on things, such as reading the newspaper or watching television: not at all 8. Moving or speaking so slowly that other people could have noticed. Or the opposite - being so fidgety or restless that you have been moving around a lot more than usual: not at all 9. Thoughts that you would be better off or of hurting yourself in some way: not at all Total score: 0 Depression Screening Interpretation: Negative Depression Screening Done: Yes Source: Developed by Drs. Tor Vigil, Roddy Finch and colleagues, with an educational ugo from [employer]. Thrive Questionnaire Date Thrive assessed: 11/14/24 AUDIT C Alcohol Use Questionnaire (AUDIT-C) 2. How many drinks containing alcohol do you have on a typical day when you are drinking?: 1 or 2 3. How often do you have six or more drinks on one occasion?: Never Total Score: 0 PATRICIA-7 AMB Questionnaire APTRICIA-7 Date PATRICIA - 7 assessed: 11/14/24 Source: Developed by Drs. Tor Vigil, Roddy Finch and colleagues, with an educational ugo from [employer]. Physical exam (Primary Care) Vital Signs: Last Vital Signs Pulse 86 01/03/25 11:22 BP 127/80 01/03/25 11:40 Pulse Ox 97 01/03/25 11:22 Oxygen Delivery Method Room Air 01/03/25 11:22 BMI result Body Mass Index 30.6 Tobacco/Smoking Status: Tobacco use Status Tobacco use date assessed 11/14/24 01/03/25 11:23 Patient Tobacco Use Status Former Tobacco user 01/03/25 11:23 Tobacco use type Cigarette 01/03/25 11:23 e-Cigarette/Vaping Use Never Used 01/03/25 11:23 PHQ-9: PHQ-9 Score PHQ-9: Total score 0 01/03/25 11:36 Depression Screening Interpretation: Negative Thrive Assessment: Date of Thrive Assessment Date Thrive assessed 11/14/24 01/03/25 11:23 Const General: alert; No acute distress Eyes Conjunctivae: conjunctivae normal Resp Auscultation: clear to auscultation bilaterally Cardio Rate: regular rate Rhythm: regular rhythm GI Inspection: Yes normal to inspection Extrem General: Yes normal to inspection and No edema Coding Level of Care Code Est Pt Level 4 (29412) Diagnoses Bilateral shoulder pain M25.511; M25.512 Anemia D64.9 Fatty liver K76.0 Prostate cancer C61 Primary hypertension I10 Hypertension type: primary hypertension Sandoval's esophagus without dysplasia K22.70 Sandoval's esophagus type: without dysplasia Generalized anxiety disorder F41.1 Assessment & Plan Assessment & Plan (1) Bilateral shoulder pain: Code(s): M25.511 - Pain in right shoulder; M25.512 - Pain in left shoulder Category: Medical Plan: Patient was sent for physical therapy (2) Anemia: Comment: Iron deficiency Code(s): D64.9 - Anemia, unspecified Category: Medical Plan: Chronic stable and will continue to monitor (3) Fatty liver: Code(s): K76.0 - Fatty (change of) liver, not elsewhere classified Category: Medical Plan: Low-fat diet and exercise (4) Prostate cancer: Comment: 2011 Dr. Garza Code(s): C61 - Malignant neoplasm of prostate Category: Medical Plan: Patient on sildenafil (5) Hypertension: Code(s): I10 - Essential (primary) hypertension Category: Medical Qualifiers: Hypertension type: primary hypertension Qualified Code(s): I10 - Essential (primary) hypertension Plan: Continue with blood pressure medication. Decrease salt intake and exercise on lisinopril 20 mg at bedtime with lisinopril hydrochlorothiazide 20/25 mg in the morning (6) Sandoval's esophagus: Comment: most recent 2017 Code(s): K22.70 - Sandoval's esophagus without dysplasia Category: Medical Qualifiers: Sandoval's esophagus type: without dysplasia Qualified Code(s): K22.70 - Sandoval's esophagus without dysplasia Plan: Avoid the foods that causes that usually spicy foods, tomato products, juices, coffee, soda and foods that your sensitive to. After eating do not lie down, allow 3-4 hours before in lie down. And keep the head of bed above 30 degrees to avoid the acid from going up. On omeprazole (7) Generalized anxiety disorder: Comment: decline counseling 07/2021 Code(s): F41.1 - Generalized anxiety disorder Category: Medical Plan: Continue with lorazepam as needed Plan History of Present Illness The patient is an 84-year-old male presenting for follow-up of chronic medical conditions, shoulder pain, and right thumb tendinitis. The patient has been previously diagnosed with right thumb flexor tendinitis and received a cortisone injection last July. Currently, he continues to experience discomfort. The patient?s chronic shoulder pain is being addressed through physical therapy referrals, though details on the pain's characteristics are limited. His gastroesophageal reflux disease, associated historically with Sandoval's Esophagus, is effectively managed with omeprazole. Latest endoscopic evaluations revealed no presence of Sandoval's esophagus. He has an extensive medical history including obesity, hypertension managed with a combination therapy of lisinopril and hydrochlorothiazide, hepatic steatosis, past prostate cancer with stable prostate-specific antigen levels, and generalized anxiety managed with lorazepam. Chronic anemia persists despite ongoing management with iron supplements. Health Maintenance - Patient is on a low-fat diet and is encouraged to exercise regularly. - Continuation of lisinopril and hydrochlorothiazide for hypertension management. - Maintenance of omeprazole for GERD with periodic re-evaluation to prevent recurrence. - Blood pressure control monitored, maintaining values within normal range (e.g., 128/60 mmHg). - Regular monitoring of anemia with potential hydration and dietary recommendations. - Encouragement to drink sufficient water, particularly with the use of hydrochlorothiazide (water pill). - Recommendations for fiber-rich diet to prevent constipation. - Up-to-date with vaccinations: shingles, tetanus, RSV, pneumonia. Social History - Family History: Discusses the humor in the family concerning dermatological procedures. - Level of Activity: Engaged in physical therapy. - Nutritional Intake: Low-fat diet with encouragement for increased fiber and hydration intake. - Excludes alcohol or tobacco use, based on conversation. - Medication adherence: Commitment to current medication regimen, including omeprazole and lisinopril/hydrochlorothiazide. Review of Systems - Cardiovascular: Reports stable blood pressure, denies chest pain or palpitations. - Respiratory: No reports of cough or wheezing. - Gastrointestinal: Denies current heartburn, acknowledges previous Sandoval's Esophagus. - Musculoskeletal: Reports shoulder pain, reports right thumb discomfort. - Neurological: Denies dizziness, reports prior mention of skipped heartbeats. - Psychiatric: Reports generalized anxiety, managed with lorazepam as needed. Physical Exam - Cardiovascular- Blood pressure measured at 128/60 mmHg. - Musculoskeletal- Observation of right thumb post-cortisone injection, shoulder pain under physical therapy management. Results - Labs: Last blood work in May showing chronic anemia, normal renal function, low-normal potassium, and elevated sugar levels. - Prostate-specific Antigen (PSA): Insignificant or undetectable. - Thyroid Function Tests: Normal levels. - Cholesterol: LDL levels normal. Plan To manage the patient's shoulder pain, I will continue to encourage physical therapy sessions while monitoring progress. The right thumb tendinitis will remain under observation following the cortisone injection. The GERD with Sandoval's Esophagus is controlled effectively with ongoing omeprazole therapy. Blood pressure remains stable with prescribed lisinopril and hydrochlorothiazide, emphasizing medication adherence. Generalized anxiety is managed using lorazepam as required. For anemia, I am advising continued use of oral iron supplements, while considering alternate options to alleviate associated gastrointestinal symptoms. Regular checkups on blood glucose and renal function are recommended. The low-fat diet and sufficient hydration are crucial, alongside the continuation of current health-promoting behaviors. Patient was informed and verbally consented to the use of an ambient scribe for clinic note documentation during this visit. Discussion Notes In our discussion, we reviewed the patient's chronic pain management plan for shoulder pain, including ongoing physical therapy. The potential benefits and side effects of current medications like omeprazole for GERD and lisinopril and hydrochlorothiazide for hypertension were discussed to ensure understanding and compliance. I emphasized maintaining hydration, particularly because the patient is taking a diuretic. We've also discussed ongoing anemia management, the importance of a balanced diet high in fiber, and scheduled future blood work to monitor any changes in his chronic conditions, such as glucose levels. I encouraged adhering to vaccinations and preventive care strategies. The patient was made aware that the follow-up blood work is not urgent but should be completed in due time. Consent and understanding of these management decisions were obtained. Patient Instructions - Continue with prescribed physical therapy for shoulder pain. - Adhere to the medication regimen: omeprazole, lisinopril, hydrochlorothiazide, and iron supplements as advised. - Maintain a low-fat diet and ensure adequate hydration, particularly with use of hydrochlorothiazide. - Monitor blood pressure regularly and report any significant changes. - Complete the recommended blood tests in approximately three months. - Stay up to date with vaccinations and prevent heartburn by continuing current GERD management. - Monitor dietary fiber to prevent constipation and monitor any changes in bowel habits. - Schedule regular follow-up visits for routine care and monitoring of chronic conditions. Orders: Orders Comprehensive Met. Panel 3 Months I10 - Essential (primary) hypertension Thyroid Stimulating Hormone 3 Months I10 - Essential (primary) hypertension Vitamin B12 and Folate 3 Months I10 - Essential (primary) hypertension H Pylori Breath Test 3 Months K22.70 - Sandoval's esophagus without dysplasia PSA,Total (Free>4and<10) 3 Months C61 - Malignant neoplasm of prostate Complete Blood Count Auto Diff 3 Months I10 - Essential (primary) hypertension Free T4 (Free Thyroxine) 3 Months I10 - Essential (primary) hypertension Lipid Panel 3 Months E78.00 - Pure hypercholesterolemia, unspecified, I10 - Essential (primary) hypertension Medications: Refilled lorazepam 0.5 mg PO BEDTIME PRN 30 tabs 1RF anxiety 90 days F41.1 - Generalized anxiety disorder
[2025-01-03 11:40] VITALS: BP 127/80
--- OUTSIDE RECORDS SUMMARY | 2025-01-03 12:20 | XMS_ITS | Encounter Summary ---
Author Organization [facility] Address [address] [place] [address] Care Team Providers Care Trucking Manager Name Role Phone Pcp, Brandi Primary Care Provider Brenton Card MD Primary Care Provider [phone] Axel Medina DO Primary Care Provider [phone] Ruby Luna MD Primary Care Provider [phone] Encounter Details Date Type Department Care Team (Late st Contact Info) Description 07/13/2016 [facility] Urologic Surgery [address] [place] [address] Hakeem Mcdaniel APRN [address] [address] Social History Tobacco Use Types Packs/Day Years Used Date Smoking Tobacco: Never Assessed Sex and Gender Information Value Date Recorded Sex Assigned at Not on file Gender Identity Not on file Sexual Orientation Not on file documented as of this encounter Plan of Treatment Not on file documented as of this encounter Visit Diagnoses Not on filedocumented in this encounter Care Teams Trucking Manager Relationship Specialty Start Date End Date Pcp, No PCP - General General Medicine 07/20/16 11/06/16 Brenton Rosas MD [address] [place] [address] [address] [place] [address] PCP - General 11/07/16 08/28/17 Axel Medina DO [address] [place] [address] [place] [address] PCP - General 08/29/17 08/12/20 Po, Ruby Gresham MD [address] [place] [address] PCP - General Internal Medicine 08/13/20 documented as of this encounter
--- OUTSIDE RECORDS SUMMARY | 2025-01-03 12:20 | XMS_ITS | Clinical Summary ---
Author Organization [facility] Address [address] [place] [address] Care Team Providers Care Sewer Maintenance Supervisor Name Role Phone Ruby Luna MD Primary Care Provider [phone] Allergies Active Allergy Reactions Criticality Noted Date [...] as needed for anxiety. Active nystatin (MYCOSTATIN) 740309 UNIT/GM creamIndications:[place] nitis Apply topically 2 (two) times a [...] age to complete this topic Care Teams Sewer Maintenance Supervisor Relationship Specialty Start Date End Date Ruby Luna MD [address] [place] [address] [place] [address] PCP - General Internal Medicine 08/13/20
--- OUTSIDE RECORDS SUMMARY | 2025-01-03 12:20 | XMS_ITS ---
Author Organization [facility] Address [address] [place] [address] Care Team Providers Care Dials Supervisor Name Role Phone Ruby Luna MD Primary Care Provider Tor Kirk [phone] REASON FOR VISIT rectal bleeding Encounters Encounter Location Date Provider Diagnosis [facility] [address] [place] [id number] 05/20/2024 Tor Song Plan Of Treatment No Information Progress Notes * PHOEBEFELISHA LambertDOB:1940 (83 yo M)Acc No.[id number]:05/20/2024 Patient:?FELISHA SANDHU :1940???Age:83 Y???Sex:Male Address:[address] [place] [id number] * true * Date:? Generated for Olga lubin/Al/eTransmitting on:?01/03/2025 12:20 PM EDT
--- OUTSIDE RECORDS SUMMARY | 2025-01-03 12:21 | XMS_ITS | Patient Health Record ---
Author Organization [facility] Address [address] [place] [address] Care Team Providers Care Product Specialist Name Role Phone Po Ruby MILLER Primary Care Provider Tor Kirk [phone] Allergies Allergen (clinical drug ingredient) Drug/Non Drug Allergy documented on EMR Reaction Allergy Type Onset Date Status sulfamethoxazole / trimethoprim Bactrim Unknown Drug Allergy Active IVP Dye (uncoded) Unknown Allergy Ac tive Reason For Referral No Information Medications Medication SIG (Take, Route, Frequency, Duration) Notes [...] as needed O rally as needed Active Immunizations Vaccine Route Administration Date Status Comme nts Influenza Unknown 07/19/2017 Administered Influenza Unknown 05/26/2021 Administered Social History Alcohol Screen Question Answer Notes Did you [...] Never (0 point) Points 4 Interpretation Positive Section Notes: Stopped smoking 3 years ago, 1 glass of wine per day Stopped smoking 3 years ago, 1 glass of wine per day Stopped smoking approx 10 yr s ago, 1 glass of wine per day Stopped smoking approx 10 yr s ago, 1 glass of wine per day Stopped smoking approx 10 yr s ago, 1 glass of wine per day Problems Problem Type SNOMED Code ICD Code Onset Dates Problem Status W/U Status Risk Notes Problem Diverticulitis (758294048) Diverticulitis of both small and large intestine without perforation or abscess without bleeding (K57.52) Active confirmed Problem Diverticulitis (607014644) Diverticulitis (K57.92) Active confirmed Problem 198088283 Barretts esophagus without dysplasia (K22.70) Active confirmed Problem 46475722 Iron deficiency anemia due to chronic blood loss (D50.0) Active confirmed Problem Diverticulosis of sigmoid colon (810568376) Diverticulosis of sigmoid colon (K57.30) Active confirmed Problem X-ray of gastrointestinal tract abnormal (920330320) Abnormal computed tomography of large intestine (R93.3) Active confirmed Encounters Encounter Location Date Provider Diagnosis [facility] [address] [facility] [address] [place] [address] 05/20/2024 Tor Song Plan Of Treatment Pending Test Test Name Order Date IRON + IBC (FE) 07/20/2017 FERRITIN 08/09/2019 FERRITIN 07/20/2017 CBC w DIFF 07/20/2017 CBC w DIFF 03/13/2014 CBC w DIFF 08/09/2019 Future Test Test Name Order Date UPPER GI ENDOSCOPY 03/13/2014 COLONOSCOPY 03/13/2014 UPPER GI ENDOSCOPY 07/20/2017 COLONOSCOPY 05/21/2022 Insurance Providers Payer Name Payer Address Payer Phone Subscriber Number Group Number Insured Name Patient Relationship to Insured Coverage Start Date Coverage End Date MEDICARE OF [place] [address] [place] [address] [id number] FELISHA SANDHU Self - patient is the insured [employer] ATTN CLAIMS [address] [place] [address] [id number] FELISHA SANDHU Self - patient is the insured Medical (General) History Medical History History ICD Code Anemia--EGD with duodenal bx negative for celiac disease in 2006--the anemia was felt to be due to his angiodysplasias and chronic GERD Cecal AVM's in 2006--colonoscopies other parker negative in 1997 and 2006 GERD, Sandoval's esophagus--E GD in 07/2012--small HH, Biopsies neg for dysplasia--had indefinite dysplasia in 01/2012 Kidney stones Denies RI,DM,CVA,Lung disease,renal dise ase HTN EGD 04/2014--small area [...] to review this with his urologist in [place] to see whether he should go for a MRI. Surgical History Surgery Date(Month/Year) Laparoscopic prostatectomy in 04/2012 for prostate cancer Tonsillectomy Vasectomy Basal cell cancer on face liptotripsy
--- OUTSIDE RECORDS SUMMARY | 2025-01-03 12:21 | XMS_ITS | Data Portability ---
Author Organization [facility] Address [address] [place] [address] Assessment No assessment recorded. Plan of Treatment Reminders Order Date Submit Date Provider Last Modified By Organization Details Last Modified Time Details Appointments None recorded. Lab CMP, serum or plasma 2018 019 [facility], [address] [place] [address], [id number], 9 08:15:38 lipid panel, blood 2018 019 [facility], [address] [place] [address], [address], 9 08:15:39 CBC 2018 019 [facility], [address] [place] [address], [address], 9 08:15:39 iron + TIBC + ferritin, serum 2018 019 [facility], [address] [place] [address], [address], 9 08:15:39 vitamin B12 + folate, serum or blood 2018 019 [facility], [address] [place] [address], [address], 9 08:15:39 urinalysis , dipstick 2018 019 [facility], [address] [facility], [address], [place], [address], 9 14:40:47 CMP, serum or plasma 2017 018 [facility], [address] [place] [address], [address], 8 08:05:27 hepatitis C Ab, serum 2017 018 [facility], [address] [place] [address], [address], 8 08:05:28 lyme disease igg+igm, serum, reflex western blot 2017 018 [facility], [address] [place] [address], [address], 8 08:05:28 iron + TIBC + ferritin, serum 2017 018 [facility], [address] [place] [address], [address], 8 08:05:27 CBC 2017 018 [facility], [address] [place] [address], [address], 8 08:05:27 Referral None recorded. Procedures None recorded. Surgeries None recorded. Imaging None recorded. Medication Orders lisinopril 20 mg-hydroch lorothiazi de 25 mg tablet 2018 019 [id number], [address] [place], [address], 9 14:02:43 lorazepam 0.5 mg tablet 2018 019 [id number], [address] [place], [address], 9 14:40:49 Patient TargetsNo targets recorded. Patient Instructions Encounter Date Encounter Id Patient Instructions Last Modified By Organization Details Last Modified Time 09/12/2018 [id number] Schedule CPE rosy Not available 15:25:00 05/01/2019 [id number] advance care planning: care instructions Not available [...] dipst ick Leukocytes Negati ve Not Available [address], [address], 12/11/2018 14:13:09 12/12/19 19 12/11/2018 urina lysis , dipst ick Nitrite negati ve Not Available [address], [place], [address], 12/11/2018 14:13:09 12/12/1912/11/2018 urina lysis , dipst ick Urobilinogen .2 Not Available [address], [place], [address], 12/11/2018 14:13:09 12/12/1912/11/2018 urina lysis , dipst ick Protein Negati ve Not Available [address], [place], [address], 12/11/2018 14:13:09 12/12/1912/11/2018 urina lysis , dipst ick pH 6.0 Not Available [address], [place], [address], 12/11/2018 14:13:09 12/12/1912/11/2018 urina lysis , dipst ick Blood Negati ve Not Available [facility] [address] [facility] [address], [place], [address], 12/11/2018 14:13:09 12/12/1912/11/2018 urina lysis , dipst ick Specific [place] 1.025 Not Available [facility] [address] [facility] [address], [place], [address], 12/11/2018 14:13:09 12/12/1912/11/2018 urina lysis , dipst ick Ketone Negati ve Not Available [facility] [address] [facility] [address], [place], [address], 12/11/2018 14:13:09 12/12/1912/11/2018 urina lysis , dipst ick Bilirubin Negati ve Not Available [facility] [address] [facility] [address], [place], [address], 12/11/2018 14:13:09 12/12/1912/11/2018 urina lysis , dipst ick Glucose Negati ve Not Available [facility] [address] [facility] [address], [place], [address], 12/11/2018 14:13:09 12/12/1912/11/2018 urina lysis , dipst ick Appearance Clear Not Available [facility] [address] [facility] [address], [place], [address], 12/11/2018 14:13:09 12/12/1912/11/2018 urina lysis , dipst ick Color Pale Yellow Not Available [facility] [address] [facility] [address], [place], [address], 12/11/2018 14:13:09 02/26/20 20 XR, finge r(s), 2 or more view No observ ation record ed. [email or web address] Not Available 2019 08:48:31 Result Notes None recorded. 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 8 15:30:28 History of malignant neoplasm of prostate 077120232 Active 2017 Yumi morocho [facility] 8 15:30:51 Iron deficiency anemia 42754479 Active 2017 Yumi morocho [facility] 8 15:31:22 Hypertensi ve disorder 60814692 Active 2017 Yumi morocho [facility] 8 15:31:28 Essential hypertensi on 14555307 [facility], [address], [facility] 9 14:01:34 Problem Notes None recorded. Procedures Surgical History Date Name Laterality Status Provider Name and Address Organization Details Recorded Time 4 Colonoscopy completed Yumi Parra [facility] 09/11/2018 15:31:56 Imaging Results Imaging Date Name [...] Not available Not available Not available 09/11/2018 40123 8003 SNOMED Yumi morocho [facility] 8 15:29:54 2627 Iodinated contrast media (substanc e) medicatio n Not available Not available Not available 09/11/2018 87841 2004 SNOMED Yumi morocho [facility] 8 15:30:15 2922 Bactrim medicatio n Not available Not available Not available 12/11/2018 53542 9 RxNorm Yumi morocho [facility] 9 14:10:52 Medications Name Sig [...] Updated DateTime 8 169.55 cm 33.5 kg/m2 70260.5 8 g 99 /min 99 % 99 % 122 mm[Hg] 78 mm[Hg] Suzanne Sheikh [facility] 8 14:56:33 Date Recorded Body height Body mass index (BMI) Body weight Heart rate Oxygen saturation Oxygen saturation in Arterial blood by Pulse oximetry Systolic blood pressure Diastolic blood pressure Provider Name and Address Organization Details Last Updated DateTime 9 169.55 cm 33.5 kg/m2 99305.0 2 g 99 /min 98 % 98 % 140 mm[Hg] 68 mm[Hg] Yumi Meadowsnaveen [facility] 9 14:12:40 Date Recorded Heart rate Systolic blood pressure Diastolic blood pressure Provider Name and Address Organization Details Last Updated DateTime 12/11/2018 86 /min 128 mm[Hg] 70 mm[Hg] Sonya Mane NP, [address] [place] [address], [address], [facility] 12/11/2018 14:34:07 Date Recorded Body height Body mass index (BMI) Body weight Heart rate Oxygen saturation Oxygen saturation in Arterial blood by Pulse oximetry Systolic blood pressure Diastolic blood pressure Provider Name and Address Organization Details Last Updated DateTime 9 169.55 cm 32.9 kg/m2 46026.0 9 g 82 /min 96 % 96 % 128 mm[Hg] 80 mm[Hg] Ceci Durant [facility] 9 13:40:39 Social History Question Answer Notes LastModified by [email or web address] ion Details LastModified Time Tobacco Smoking Status Former Smoker Not Available [facility] 07/28/2020 03:36:24 What Was The Date Of Your Most Recent Tobacco Screening? 12/11/2018 [id number] Information not available 07/28/2020 Sex: Unknown Functional Status None recorded. Mental Status None recorded. Family History Nothing Reported. Medical History No medical history recorded. Immunizations Vaccine Type Date Status Note Provider Nam e and Address Organization Details Recorded Time pneumococcal polysaccharide PPV23 05/26/20 12 [facility] [address] [place] [address], [address], [facility] 05/01/2019 13:56:36 Pneumococcal conjugate PCV 13 05/26/20 15 [facility] [address] [place] [address], [address], [facility] 05/01/2019 13:56:55 zoster recombinant 03/25/20 12 completed Katey AKOSUA Hooks [address] [place] [address], [address] 05/01/2019 13:57:16 Influenza, split virus, quadrivalent, preservative 05/18/20 18 [facility] 09:25:30 Past Encounters Encounter ID Performer Location Encounter Start Date Encounter Closed Date Diagnosis/Indication Diagnosis SNOMED-CT Code Diagnosis ICD10 Code Diagnosis Note [id number] Sonya Mane NP, [facility] [address] [facility],[place] [address] 09/12/2018 14:47:50 09/21/2018 08:53:47 Pre-surgery evaluation 227640241 Z01.818 await labs Hypertensive disorder 38 506903 I10 Olsen's esophagus 3029 78219 K22.70 on omeprazole , up to date with Dr. Loving History of malignant neoplasm of prostate 686241092 Z85.46 recent normal urological exam Iron defic iency anemia 38188295 D50.9 Screening procedure 2012 5006 Z13.9 [id number] Sonya Mane NP, [facility] [address] [facility], [place] [address] 12/11/2018 14:00:30 12/12/2018 08:13:30 Adult health examination 890895948 Z00.01 Active or passive immunization 524888558 Z23 Anxiety 12488140 F41.9 Olsen's esophagus 3029 74904 K22.70 on omeprazole , up to date with Dr. Loving Hypertensive disorder 38 157293 I10 stable History of malignant neoplasm of prostate 164913894 Z85.46 saw urologist in August AKOSUA Hooks [facility] [address] [facility], [facility] [place] [address] 05/01/2019 13:33:43 05/01/2019 14:09:06 Advance care planning 611543759 Z71.89 has hcp/will Body mass index 30+ - obesity 201760365 Z68.32 Hypertensive disorder 38 021357 I10 stable/wel l controlled Iron defic iency anemia 13061285 D50.[address] loving for this Olsen's esophagus [address] loving for this Active or passive immunization 290193512 Z23 Essential hypertension 22072446 I10 Health Concerns Section Related Observation LastModified by Organization Detai ls LastModified Time None Recorded Concern Status LastModified by Organization Details LastModified Time None Recorded Advance Directives Directive None Recorded Payers Encounter Date Sequence Insurance Name Policy Number Policy Denny Covered Member ID Denny Member ID Guarantor Name 09/12/2018 2 [place] [id number] Randal Nguyen [id number] Randal Petersonzak 09/12/2018 1 [place] [employer] Randal Nguyen [id number] Randal Nguyen 12/11/2018 2 [place] [id number] Randal Nguyen [id number] Randal Petersonzak 12/11/2018 1 [place] Randal Nguyen [id number] Randal Daiglek 05/01/2019 2 [place] [id number] Randal Nguyen [id number] Randal Nguyen 05/01/2019 1 [place] [employer] Randal Nguyen [id number] Randal Petersonzak Notes Date Note Type Note Provider Name a az Address Organization Details Recorded Time 8 text/html [...] after discharge Sonya Mane NP, S [address] [facility], [place], [address], [facility] 09/12/2018 15:26:39 9 text/html Annual [...] wears glasses Sonya Mane NP, S [address] [place] [address], [address], [facility] 12/11/2018 15:35:04
== END 2025-01-03 11:56 | disposition home or self-care (01) ==
LOC: HO.HMCH 11:21
PROVIDERS: PCP Internal Medicine; Visit Provider Internal Medicine
DX: M25.511 Pain in right shoulder (principal); M25.512 Pain in left shoulder; C61 Malignant neoplasm of prostate; D64.9 Anemia, unspecified; K76.0 Fatty (change of) liver, not elsewhere classified; I10 Essential (primary) hypertension; K22.70 Barrett's esophagus without dysplasia; F41.1 Generalized anxiety disorder

== ENCOUNTER → 2025-01-03 11:20 | Outpatient (BNVA) | payer MEDICARE, SELFPAY | PROVIDERS: PCP Internal Medicine; Visit Provider Internal Medicine | DX: I10 Essential (primary) hypertension (principal); M25.511 Pain in right shoulder; M25.512 Pain in left shoulder; D64.9 Anemia, unspecified; K76.0 Fatty (change of) liver, not elsewhere classified; C61 Malignant neoplasm of prostate; K22.70 Barrett's esophagus without dysplasia; F41.1 Generalized anxiety disorder; M77.8 Other enthesopathies, not elsewhere classified; E78.00 Pure hypercholesterolemia, unspecified; Z87.891 Personal history of nicotine dependence | CPT/HCPCS: 96127; 99212 ==

== ENCOUNTER 2025-07-07 09:58 | Outpatient (REF) | payer MEDICARE, SELFPAY ==
[2025-07-07 10:13] LABS: MANUAL DIFF FLAG NO
[2025-07-07 10:28] LABS: Hematocrit 39.2 % (42.0-52.0); Hemoglobin 12.2 g/dl (14.0-18.0); Imm Gran Abs Auto 0.04 X10*3/uL (0.00-0.03); Imm Gran Pct Auto 0.6 % (0.0-0.4); Lymphocytes Absolute Auto 2.0 X10*3/uL (1.2-4.9); Mean Corpuscular HGB Conc 31.1 g/dl (31.0-36.0); Mean Corpuscular Hemoglobin 30.0 pg (27.0-33.0); Mean Corpuscular Volume 96.6 fL (80.0-98.0); NRBC Abs Auto 0.050 X10*3/uL (0.0-0.012); NRBC Pct Auto 0.7 /100WBC (0.0-0.2); Platelet Count 213 X10*3/uL (160-400); Red Blood Count 4.06 X10*6/uL (4.60-5.80); White Blood Count 7.1 X10*3/uL (4.8-10.8)
[2025-07-07 11:06] LABS: Alanine Aminotransferase 32 U/L (0-40); Albumin Level 4.4 g/dL (3.5-5.0); Alkaline Phosphatase 59 U/L (39-117); Anion Gap 15 (12-20); Aspartate Amino Transferase 35 U/L (5-37); Blood Urea Nitrogen 20 mg/dL (9-16); Calcium 9.2 mg/dL (8.4-10.2); Carbon Dioxide 25 mmol/L (22-29); Chloride 106 mmol/L (96-108); Cholesterol 172 mg/dL (<200); Estimated Glomerular Filt Rate > 60; HDL Cholesterol 37 mg/dL (>40); Potassium 4.4 mmol/L (3.3-5.1); Sodium 142 mmol/L (135-145); Total Protein 7.3 g/dL (6.5-8.0); Triglycerides 120 mg/dL (<150)
[2025-07-07 11:17] LABS: PSA,Total (Free>4and<10) < 0.10 ng/mL (0.00-4.00)
[2025-07-07 11:18] LABS: Free T4 (Free Thyroxine) 0.98 ng/dL (0.71-1.85); Thyroid Stimulating Hormone 1.77 uIU/mL (0.32-4.0)
[2025-07-07 11:31] LABS: Folate 11.1 ng/mL (> or = 4.0); Vitamin B12 678 pg/mL (200-900)
== END 2025-07-07 09:59 | disposition home or self-care (01) ==
LOC: HO.LAB 09:58
PROVIDERS: PCP Internal Medicine; Visit Provider Internal Medicine
DX: Z12.5 Encounter for screening for malignant neoplasm of prostate (principal); I10 Essential (primary) hypertension; C61 Malignant neoplasm of prostate; E78.00 Pure hypercholesterolemia, unspecified
CPT/HCPCS: 36415; 80053; 80061; 82607; 82746; 84153; 84439; 84443; 85025

== ENCOUNTER 2025-07-15 12:29 | Outpatient (AMB) | payer MEDICARE, SELFPAY ==
[2025-07-15 12:34] VITALS: BP 144/66; PULSE 95; TEMP 36.1; O2SAT 99; BMI 29.6
--- NOTE | 2025-07-15 12:34 | A.OFFVIS_ITS ---
Intake Vital Signs 07/15/25 12:34 Height 5 ft 8 in Weight 194 lb 8 oz BMI 29.6 BP 144/66 H Blood Pressure Location Lt brachial Position Sitting Pulse 95 Pulse Source Pulse Oximeter Temp 97.0 F Temp Source Temporal Artery Scan Pulse Oximetry (%) 99 Oxygen Delivery Method Room Air Intake Visit Reasons: awv Allergies Sulfa (Sulfonamide Antibiotics) Allergy (Intermediate, Verified 07/15/25 12:37) Anxiety sulfamethoxazole (From Bactrim) Allergy (Intermediate, Verified 07/15/25 12:37) Anxiety trimethoprim (From Bactrim) Allergy (Intermediate, Verified 07/15/25 12:37) Anxiety Medication List - Last Reconciled 07/15/25 by Ruby Luna MD ascorbate calcium (vitamin C) 500 mg PO DAILY C,E,copper,zinc [id number] 250-5-1 mg (Ocuvite Adult 50 Plus) 1 cap PO DAILY cholecalciferol (vitamin D3) 25 mcg PO DAILY ferrous sulfate (Feosol) 325 mg PO DAILY [Gummy PO] lisinopril 20 mg PO BEDTIME lisinopril-hydrochlorothiazide 20-25 mg 1 tab PO QAM lorazepam 0.5 mg PO BEDTIME PRN 90 days magnesium oxide 500 mg PO DAILY omeprazole 20 mg PO QAM sildenafil 100 mg PO DAILY PRN HPI awv HPI Details [facility], [facility] ortho surgeon Dr. Shea Gastro[facility]ology Dr. Song. BP at home is good. [facility] Medical History Fatty liver History of renal calculi Prostate cancer Finger fracture, right Anemia Hypertension Sandoval's esophagus Anxiety GERD (gastroesophageal reflux disease) Surgical History History of esophagogastroduodenoscopy (EGD) H/O colonoscopy History of carpal tunnel release History of prostatectomy History of tonsillectomy Family History Father No problems noted. Mother No problems noted. Brother Prostate cancer Daughter No problems noted. Son No problems noted. Social History (Updated 07/15/25 @ 12:51 by Ruby Luna MD) Housing: House Are you a primary career [employer] teacher to a significant other at home: No Do you presently have visiting nurse or other home services: No Alcohol intake: current Alcohol intake frequency: 0-2 drinks per day Alcohol type: wine and hard liquor Comment: QD once 1 oz cognac Patient Tobacco Use Status: Former Tobacco user Tobacco use type: Cigarette Years Smoked: quit 1999 e-Cigarette/Vaping Use: Never Used Second Hand Smoke Exposure: Yes service: No Current occupational status: retired Cognitive needs: No Hearing needs: Yes Vision needs: Yes Review of Systems Const Denies poor appetite and Denies weakness Eyes Denies no additional complaints ENT Reports Normal hearing present, Denies dizziness, Denies nasal congestion, Denies tinnitus and Denies sore throat Card Denies chest pain, Denies syncope, Denies rapid heart rate and Denies dyspnea Resp Denies cough and Denies dyspnea GI Denies change in stool character, Reports constipation, Denies diarrhea, Denies nausea and Denies vomiting Denies dysuria and Denies urinary frequency Neuro Reports Normal hearing present, Denies confusion, Denies dizziness, Denies syncope and Denies weakness Psych Denies confusion Physical Exam Vital Signs: Last Vital Signs Temp 97.0 F 07/15/25 12:34 Pulse 95 07/15/25 12:34 BP 144/66 H 07/15/25 12:34 Pulse Ox 99 07/15/25 12:34 Oxygen Delivery Method Room Air 07/15/25 12:34 BMI result Body Mass Index 29.6 Const General: No confusion Orientation/consciousness: No confusion HEENT Head: Yes normocephalic Ears: external ears normal and TM's normal bilaterally Face and sinus: Yes normal facial exam Mouth: moist mucous membranes Throat: Yes tonsils normal Eyes Conjunctivae: conjunctivae normal Pupils: Equal, round and reactive pupils present and Pupil accommodation reflex normal Direct Ophthalmoscopy: normal light reflex Neck Neck: No lymphadenopathy Thyroid: Thyroid normal Chest Chest palpation & inspection: normal inspection of the chest Resp Effort & Inspection: normal respiratory effort and no audible wheezes Auscultation: clear to auscultation bilaterally, no crackles, no wheezes and karen ng sounds not diminished Cardio Rate: regular rate Rhythm: regular rhythm Peripheral pulses: radial pulses present and dorsalis pedis present GI Palpation (GI): no masses Auscultation: normal bowel sounds and normoactive bowel sounds Rectal Exam - Male: Yes deferred Skin General skin exam: no rashes or lesions noted Rashes: no rashes Neuro General: No confusion Cranial nerves: Yes Equal, round and reactive pupils present and Yes Normal hearing present Cognition (Neuro): normal cognition Gait exam (Neuro): Normal gait present Motor exam (neuro): 5/5 motor strength present throughout Deep tendon reflexes (DTR's): Right brachioradialis reflex intensity grade: 2+, Left brachioradialis reflex intensity grade: 2+, Right patellar reflex intensity grade: 2+ and Left patellar reflex intensity grade: 2+ Extrem General: No edema Assessment & Plan Assessment & Plan (1) Medicare annual wellness visit, subsequent: Code(s): Z00.00 - Encounter for general adult medical examination without abnormal findings Plan: Patient is advised to eat healthy, keep well hydrated, keep active and have adequate sleep. (2) Prostate cancer: Comment: 2011 Dr. Garza Code(s): C61 - Malignant neoplasm of prostate Plan: Continuing to monitor. PSA undetectable (3) Anemia: Comment: Iron deficiency Code(s): D64.9 - Anemia, unspecified Plan: Stable continue with monitoring (4) Fatty liver: Code(s): K76.0 - Fatty (change of) liver, not elsewhere classified Plan: Low-fat diet and exercise (5) Sandoval's esophagus: Comment: most recent 2017 Code(s): K22.70 - Sandoval's esophagus without dysplasia Qualifiers: Sandoval's esophagus type: without dysplasia Qualified Code(s): K22.70 - Sandoval's esophagus without dysplasia Plan: Avoid the foods that causes that usually spicy foods, tomato products, juices, coffee, soda and foods that your sensitive to. After eating do not lie down, allow 3-4 hours before in lie down. And keep the head of bed above 30 degrees to avoid the acid from going up. On omeprazole (6) Hypertension: Code(s): I10 - Essential (primary) hypertension Qualifiers: Hypertension type: primary hypertension Qualified Code(s): I10 - Essential (primary) hypertension Plan: Continue with blood pressure medication. Decrease salt intake and exercise lisinopril hydrochlorothiazide in the morning and lisinopril 20 mg in the evening (7) Generalized anxiety disorder: Comment: decline counseling 07/2021 Code(s): F41.1 - Generalized anxiety disorder Plan: Continue with lorazepam as needed Plan History of Present Illness The patient is an 85-year-old male presenting for an annual wellness visit. He has a history of Sandoval's esophagus, managed with omeprazole, and reports occasional reflux symptoms controlled with medication. Hypertension is managed with lisinopril and hydrochlorothiazide, with occasional elevated readings attributed to white coat syndrome. Diagnosed with prostate cancer in 2011, his PSA levels remain undetectable, with no signs of recurrence. Hepatic steatosis is being monitored, and generalized anxiety disorder is managed with lorazepam as needed. In February 2025, he was treated for basal cell carcinoma on the lateral forehead by dermatology. Chronic anemia remains stable, with normal platelet and white blood cell counts. Blood glucose is elevated at 105 mg/dL, with normal liver function and cholesterol levels except for low HDL. Allergic rhinitis and asthma symptoms have worsened, managed with an inhaler and year-round allergy medication. He maintains an active lifestyle, cycling regularly, adheres to a low-fat diet, consumes one ounce of alcohol in the evening, and denies tobacco use. Health Maintenance - Vaccinations: Up to date with shingles, COVID-19, and flu shots - Lifestyle: Adheres to a low-fat diet and regular cycling - Alcohol: Consumes one ounce of alcohol in the evening - Tobacco: Denies use Social History - Exercise: Regular cycling, including use of an electric bike for exercise - Alcohol: Consumes one ounce of alcohol in the evening - Tobacco: Denies use of cigarettes, cigars, or pipes Review of Systems - General: Denies dizziness, syncope, or fever - Cardiovascular: Denies chest pain, palpitations, or dyspnea on exertion - Respiratory: Reports occasional cough and wheezing, denies shortness of breath - Gastrointestinal: Reports occasional constipation, denies nausea or vomiting - Genitourinary: Denies dysuria, reports nocturia once per night - Neurological: Denies headaches or balance issues - Dermatological: Reports itch in throat, denies new skin lesions Physical Exam General: Cooperative, healthy appearing, comfortable, no acute distress and well developed Orientation: Patient oriented x3 Limitations: No limitations Head: Normal to inspection Ears: Hearing grossly normal bilaterally, patient uses hearing aids but forgot them today Nose: Normal external nose present Face and sinus: Normal facial exam Eyes: Appearance normal, both eyes and all related structures Neck: Normal visual inspection and Yes full ROM Respiratory: Normal respiratory effort and able to speak in complete sentences. Clear to auscultation bilaterally Cardiovascular: Regular rate and rhythm. Normal S1 and S2, presence of a murmur GI: Normal to inspection. Soft to palpation and nontender Skin: No rashes or lesions noted, history of basal cell carcinoma on the lateral forehead Neuro: Patient oriented x3 Extremities: Normal to inspection Results - Labs: Chronic anemia with stable hemoglobin levels, normal platelet and white blood cell counts - Labs: Elevated blood glucose at 105 mg/dL - Labs: LDL cholesterol at 111 mg/dL, HDL cholesterol at 37 mg/dL - Labs: Normal liver function tests Plan Patient was informed and verbally consented to the use of an ambient scribe for clinic note documentation during this visit. 1. Sandoval's Esophagus The patient will continue on omeprazole for management of Sandoval's esophagus and monitor for any changes in symptoms. 2. Hypertension Hypertension is managed with lisinopril and hydrochlorothiazide, with home monitoring to assess for white coat syndrome. 3. Prostate Cancer (History Of) The patient's PSA levels remain undetectable, and he will continue regular monitoring for any signs of recurrence. 4. Hepatic Steatosis Hepatic steatosis will be monitored with regular follow-ups to assess liver function. 5. Generalized Anxiety Disorder The patient will continue using lorazepam as needed for anxiety management. 6. Basal Cell Carcinoma The patient was treated for basal cell carcinoma on the lateral forehead and will follow up with dermatology for any new lesions. 7. Chronic Anemia Chronic anemia will be monitored with regular blood work to ensure stability. 8. Elevated Blood Glucose The patient will continue monitoring blood glucose levels and maintain a low-fat diet to manage elevated glucose. 9. Low Hdl Cholesterol The patient is advised to continue regular exercise to improve HDL cholesterol levels. 10. Allergic Rhinitis The patient will continue using allergy medication year-round to manage symptoms. 11. Asthma Asthma symptoms will be managed with the use of an inhaler as needed. Discussion Notes During the visit, we discussed the management of Sandoval's esophagus with omeprazole and the importance of monitoring symptoms. We reviewed the patient's hypertension management plan, emphasizing the role of home monitoring to differentiate white coat syndrome. The patient's history of prostate cancer was addressed, confirming undetectable PSA levels and the continuation of regular monitoring. We discussed the stable nature of the patient's chronic anemia and the importance of regular blood work. The patient was advised to maintain a low- fat diet and regular exercise to manage elevated blood glucose and low HDL cholesterol levels. We also covered the management of allergic rhinitis and asthma, with recommendations for continued use of medications. Patient Instructions - Continue taking omeprazole as prescribed for Sandoval's esophagus. - Monitor blood pressure at home and report any significant changes. - Maintain regular follow-ups for prostate cancer monitoring. - Follow a low-fat diet and exercise regularly to manage blood glucose and cholesterol levels. - Use allergy medication and inhaler as needed for allergic rhinitis and asthma. Coding Level of Care Code Medicare Subsequent (G0439) Diagnoses Medicare annual wellness visit, subsequent Z00.00 Prostate cancer C61 Anemia D64.9 Fatty liver K76.0 Sandoval's esophagus without dysplasia K22.70 Sandoval's esophagus type: without dysplasia Primary hypertension I10 Hypertension type: primary hypertension Generalized anxiety disorder F41.1
--- OUTSIDE RECORDS SUMMARY | 2025-07-15 16:02 | XMS_ITS | Data Portability ---
Author Organization [facility] Telehealth Patient Home Address [address] [place] [address] Assessment No assessment recorded. Plan of Treatment Reminders Order Date Submit Date Provider Last Modified By Organization Details Last Modified Time Details Appointments None recorded. Lab CMP, serum or plasma 2018 019 [facility], [address] [place] [address], [address], 9 08:15:38 lipid panel, blood 2018 019 [facility], [address] [place] [address], [address], 9 08:15:39 CBC 2018 019 [facility], [address] [place] [address], [address], 9 08:15:39 iron + TIBC + ferritin, serum 2018 019 [facility], [address] [place] [address], [address], 9 08:15:39 vitamin B12 + folate, serum or blood 2018 019 [facility], [address] [place] [address], [address], 9 08:15:39 urinalysis , dipstick 2018 019 [facility], [address] [facility], [address], [place], [address], 9 14:40:47 CMP, serum or plasma 2017 018 [facility], [address] [place] [address], [place], [address], 8 08:05:27 hepatitis C Ab, serum 2017 018 [facility], [address] [place] [address], [address], 8 08:05:28 lyme disease igg+igm, serum, reflex western blot 2017 018 [facility], [address] [place] [address], [place], [address], 8 08:05:28 iron + TIBC + ferritin, serum 2017 018 [facility], [address] [place] [address], [place], [address], 8 08:05:27 CBC 2017 018 [facility], [address] [place] [address], [place], [address], 8 08:05:27 Referral None recorded. Procedures None recorded. Surgeries None recorded. Imaging None recorded. Medication Orders lisinopril 20 mg-hydroch lorothiazi de 25 mg tablet 2018 019 [id number], [address] [place], [address], 9 14:02:43 lorazepam 0.5 mg tablet 2018 019 [id number], [address] [place], [address], 9 14:40:49 Patient TargetsNo targets recorded. Patient Instructions Encounter Date Encounter Id Patient Instructions Last Modified By Organization Details Last Modified Time 09/12/2018 [id number] Schedule CPE rosy Not available 15:25:00 05/01/2019 [id number] advance care planning: care instructions Not available [...] Abnormal Flag Note LastModifiedBy Organization Detail LastModifiedTime 12/12/1912/11/2018 urina lysis , dipst ick Leukocytes Negati ve Not Available [address], [place], [address], 12/11/2018 14:13:09 12/12/1912/11/2018 urina lysis , dipst ick Nitrite negati ve Not Available [address] , [place], [address], 12/11/2018 14:13:09 12/12/1912/11/2018 urina lysis , dipst ick Urobilinogen .2 Not Available [facility] [address] [facility] [address], [place], [address], 12/11/2018 14:13:09 12/12/1912/11/2018 urina lysis , dipst ick Protein Negati ve Not Available [address], [place], [address], 12/11/2018 14:13:09 12/12/1912/11/2018 urina lysis , dipst ick pH 6.0 Not Available [facility] [address] [facility] [address], [place], [address], 12/11/2018 14:13:09 12/12/19 19 12/11/2018 urina lysis , dipst ick Blood Negati ve Not Available [facility] [address] [facility] [address], [place], [address], 12/11/2018 14:13:09 12/12/1912/11/2018 urina lysis , dipst ick Specific [place] 1.[address] [facility] [address] [facility] [address], [place], [address], 12/11/2018 14:13:09 12/12/1912/11/2018 urina lysis , dipst ick Ketone Negati ve Not Available [facility] [address] [facility] [address], [place], [address], 12/11/2018 14:13:09 12/12/1912/11/2018 urina lysis , dipst ick Bilirubin Negati ve Not Available [facility] [address] [facility] [address], [place], [address], 12/11/2018 14:13:09 12/12/1912/11/2018 urina lysis , dipst ick Glucose Negati ve Not Available [facility] [address] [facility] [address], [place], [address], 12/11/2018 14:13:09 12/12/1912/11/2018 urina lysis , dipst ick Appearance Clear Not Available [facility] [address] [facility] [address], [place], [address], 12/11/2018 14:13:09 12/12/1912/11/2018 urina lysis , dipst ick Color Pale Yellow Not Available [facility] [address] [facility] [address], [place], [address], 12/11/2018 14:13:09 02/26/20 20 XR, finge r(s), 2 or more view No observ ation record ed. [email or web address] Not Available 2019 08:48:31 Result Notes None recorded. 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 Procedures Surgical History Date Name Laterality Status Provider Name and Address Organization Details Recorded Time 4 Colonoscopy completed Yumikalyn Parra [facility] 09/11/2018 15:31:56 Imaging Results None recorded. Procedure Notes None recorded. Medical Equipment None Reported. Allergies Allergen ID Allergen Name Allergen Category Reaction Reaction Severity Criticality Documentation Date Start Date Code Code System Note Provider Name and Address Organization Details Recorded Time 2626 Substance with sulfonami de structure and antibacte rial mechanism of action (substanc e) medicatio n Not available Not available Not available 09/11/2018 59927 8003 SNOMED Yumi morocho [facility] 8 15:29:54 2627 Iodinated contrast media (substanc e) medicatio n Not available Not available Not available 09/11/2018 98841 2004 SNOMED Yumi Parra [facility] 8 15:30:15 2922 Bactrim medicatio n Not available Not available Not available 12/11/2018 13815 9 RxNorm Yumi Parra [facility] 9 14:10:52 Medications Name Sig Start Date [...] Available No t Available Vitals Date Recorded Heart rate Systolic And Diastolic Provider Name and Address Organization Details Last Updated DateTime 12/11/2018 86 /min 128/70 mm[Hg] Sonya Mane NP, [address] [place], [address], [facility] 12/11/2018 14:34:07 Date Recorded Body height Body mass index (BMI) Body weight Heart rate Oxygen saturation Oxygen saturation in Arterial blood by Pulse oximetry Systolic And Diastolic Provider Name and Address Organization Details Last Updated DateTime 9 169.55 cm 33.5 kg/m2 57196.0 2 g 99 /min 98 % 98 % 140/68 mm[Hg] Yumi Parra [facility] 9 14:12:40 Date Recorded Body height Body mass index (BMI) Body weight Heart rate Oxygen saturation Oxygen saturation in Arterial blood by Pulse oximetry Systolic And Diastolic Provider Name and Address Organization Details Last Updated DateTime 9 169.55 cm 32.9 kg/m2 61720.0 9 g 82 /min 96 % 96 % 128/80 mm[Hg] Ceci Jacksoncornell [facility] 9 13:40:39 Date Recorded Body height Body mass index (BMI) Body weight Heart rate Oxygen saturation Oxygen saturation in Arterial blood by Pulse oximetry Systolic And Diastolic Provider Name and Address Organization Details Last Updated DateTime 8 169.55 cm 33.5 kg/m2 59666.5 8 g 99 /min 99 % 99 % 122/78 mm[Hg] Suzanne Sheikh [facility] 8 14:56:33 Social History Question Answer Notes LastModified by Organizat ion Details LastModified Time Tobacco Smoking Status Former [facility]oker Not [facility] 03:36:24 What Was The Date Of Your Most Recent Tobacco Screening? 12/11/2018 [id number] Information not available 07/28/2020 Sex: Unknown Functional Status None recorded. Mental Status None recorded. Family History Nothing Reported. Medical History No medical history recorded. Immunizations Vaccine Type Date Status Note Provider Nam e and Address Organization Details Recorded Time pneumococcal polysaccharide PPV23 05/26/20 12 completed Katey Neva [address], [address] 05/01/2019 13:56:36 Pneumococcal conjugate PCV 13 05/26/20 15 completed Katey DEREK [address], [address], [facility] 05/01/2019 13:56:55 zoster recombinant 03/25/20 12 completed Katey AKOSUA Hooks [address] [place] [address], [address], [facility] 05/01/2019 13:57:16 Influenza, split virus, quadrivalent, preservative 05/18/20 18 [facility] 05/21/2018 09:25:30 Past Encounters Encounter ID Performer Location Encounter Start Date Encounter Closed Date Diagnosis/Indication Diagnosis SNOMED-CT Code Diagnosis ICD10 Code Diagnosis IMO Codes Diagnosis Note [id number] Axel Medina DO [facility] [address] [place] [address] 09/12/2018 14:47:50 09/21/2018 08:53:47 Pre-surgery evaluation 955604103 Z01.818 await labs Hypertensive disorder 38 214159 I10 Olsen's esophagus 3029 48842 K22.70 on omeprazole , up to date with Dr. Loving History of malignant neoplasm of prostate 575683252 Z85.46 recent normal urological exam Iron defic iency anemia 56666591 D50.9 Screening procedure 2012 5006 Z13.9 [id number] Sonya Mane NP, [facility] [address] [place] [address] 12/11/2018 14:00:30 12/12/2018 08:13:30 Adult health examination 113377641 Z00.01 Active or passive immunization 698208429 Z23 Anxiety 99237819 F41.9 Olsen's esophagus 3029 88012 K22.70 on omeprazole , up to date with Dr. Loving Hypertensive disorder 38 795747 I10 stable History of malignant neoplasm of prostate 822780313 Z85.46 saw urologist in August Axel Medina [facility] [address] [place] [address] 05/01/2019 13:33:43 05/01/2019 14:09:06 Advance care planning 947410856 Z71.89 has hcp/will Body mass index 30+ - obesity 193550914 Z68.32 Hypertensive disorder 38 143181 I10 stable/wel l controlled Iron defic iency anemia 80074425 D50.[address] loving for this Olsen's esophagus [address] loving for this Active or passive immunization 563577710 Z23 Essential hypertension 65461822 I10 Health Concerns Section Related Observation LastModified by Organization Detai ls LastModified Time None Recorded Concern Status LastModified by Organization Details LastModified Time None Recorded Advance Directives Directive None Recorded Payers Insurance Date Sequence Insurance Name Policy Number Policy Denny Covered Member ID Denny Member ID Guarantor Name 04/28/2019 2 [place] [id number] Randal Nguyen [id number] Randal Nguyen 04/28/2019 1 [place] [facility] Randal Nguyen [id number] Randal Nguyen Notes Date Note Type Note Provider Name and Address Organization Details Recorded Time 8 text/htm l Pre-OpReported by PatientHPIFor risk factors, patient reportschronic cardiopulmonary conditionandobesebut reportsno cognitive impairment,no functional impairment,no malnutrition,no frailty,able to climb a flight of stairs (exercise capacity>4 mets),no obstructive sleep apnea,non-smoker,no alcohol misuse, andno illicit drug use(htn, bmi 33.5). For severity, patient reportsmoderate. For anesthesia hx, patient reportsno hx of anesthesia complications,no allergy to anesthetic agents, andno family history of anesthesia complications. For functional ability, patient reportsable to walk up stairs,able to perform heavy work around the house, andno difficulty walking up hills. For post-op support, patient reportsno need for assistance,adequate assistance at home, andneeds help arranging assistance after discharge. For surgery to be performed, (blepharoplasty and removal mole left lid). Sonya Mane NP, [address] [facility], [place], [address], [facility] 09/12/2018 15:26:39 9 text/htm l Annual WellnessReported by PatientSocial/Behavioral HistoryFor diet and nutrition, patient reportshigh caloric intakebut reportshealthy diet. For fracture risk, patient reportsno history of fractures,no recent explained fracture,no sudden unexplained fractures, andno previous musculoskeletal injuries. For physical activity, patient reportsexercises on a regular basisandgood physical condition. For additional lifestyle factors, patient reportsno tobacco useanddrinks alcohol (mild-moderate).Mental Status:For depression risk, patient reportsnever feels sad, empty, or tearful,no loss of interest in activities,no significant changes in weight,no sleep disturbances or insomnia,no agitation,no loss of energy,no feelings of worthlessness or guilt,no thoughts of suicide,no history of depression, andno history of mood disorders.Functional AbilityFor hearing, patient reportswears hearing aids. For vision, patient reportsno vision problems(wears glasses). Sonya Mane NP, [address] [facility], [place], [address], [facility] 12/11/2018 15:35:04
--- OUTSIDE RECORDS SUMMARY | 2025-07-15 16:02 | XMS_ITS | Patient Health Record ---
Author Organization [facility] Address [address] [place] [address] Care Team Providers Care Pulmonary Disease Specialist Name Role Phone Po Ruby MILLER Primary Care Provider Tor Kirk [phone] Allergies Allergen (clinical drug ingredient) Drug/Non Drug [...] 875-125 MG 1 tablet Orally every 12 hrs; Duration: 10 day(s) 06/13/2023 Active Magnesium 500 MG 1 tablet Orally Once a day Active Omeprazole 20 MG 1 tablet Orally Once a day; Duration: 90 days 03/13/2014 Active LORazepam 0.5 MG [...] Status W/U Status Risk Notes Problem Diverticulitis (741959735) Diverticulitis of both small and large intestine without perforation or abscess without bleeding (K57.52) Active confirmed Problem Diverticulitis (21509168) Diverticulitis (K57.92) Active confirmed Problem Sandoval's esophagus (456212076) Barretts esophagus without dysplasia (K22.70) Active confirmed Problem Iron deficiency anemia due to chronic blood loss (571490518) Iron deficiency anemia due to chronic blood loss (D50.0) Active confirmed Problem Diverticulosis of sigmoid colon (244465901) Diverticulosis of sigmoid colon (K57.30) Active confirmed Problem Abnormal compute d tomography of large intestine (R93.3) Active confirmed Plan Of Treatment Pending Test Test Name Order Date IRON + IBC (FE) 07/20/2017 FERRITIN 08/09/2019 FERRITIN 07/20/2017 CBC w DIFF 03/13/2014 CBC w DIFF 08/09/2019 CBC w DIFF 07/20/2017 Future Test Test Name Order Date UPPER GI ENDOSCOPY 03/13/2014 COLONOSCOPY 03/13/2014 UPPER GI ENDOSCOPY 07/20/2017 COLONOSCOPY 05/21/2022 Next Appt Details Provider Name:Tor Song , 08/14/2025 11:00:00 AM, [address] [place] [address], [address], [place], [address], Insurance Providers Payer Name Payer Address Payer Phone Subscriber Number Group Number Insured Name Patient Relationship to Insured Coverage Start Date Coverage End Date MEDICARE OF [place] [address] [place] [address] [id number] FELISHA SANDHU Self - patient is the insured MEDEX ATTN CLAIMS [address] [place] [address] [id number] FELISHA SANDHU Self - patient is the [...] indefinite dysplasia in 01/2012 Kidney stones Denies ID,DM,CVA,Lung disease,renal dise ase HTN EGD 04/2014--small area [...] to review this with his urologist in [place] to see whether he should go for a MRI. Surgical History Surgery Date(Month/Year) Laparoscopic prostatectomy in 04/2012 for prostate cancer Tonsillectomy Vasectomy Basal cell cancer on face liptotripsy
--- OUTSIDE RECORDS SUMMARY | 2025-07-15 16:02 | XMS_ITS | Clinical Summary ---
Author Organization [facility] Address [address] [place] [address] Care Team Providers Care Colored Leather Setter Name Role Phone Ruby Luna MD Primary Care Provider [phone] Allergies Active Allergy Reactions Criticality Noted Date Comments Sulfamethoxazole-Trimet hoprim Other (See Comments) 11/07/2016 Unable to describe Iodinated Contrast Media Unknown/Patient and Family Unable to Define Medium 08/28/2019 Red Dye #40 (Allura Red) GI Intolerance/Nausea/V omiting Low 08/29/2017 Sulfa Antibiotics Unknown/Patient and Family Unable to Define Medium 08/28/2019 Medications OMEprazole (PriLOSEC) 20 MG capsule Take 1 [...] as needed for anxiety. Active nystatin (MYCOSTATIN) 449209 UNIT/GM creamIndications:B alanitis Apply topically 2 (two) times a day. 30 g 8 Active lisinopril-hydroch lorothiazide (PRINZIDE,ZESTORET IC) 20-25 MG per tablet Take 1 tablet by mouth daily. 1 9 Active Multiple Vitamins-Minerals (OCUVITE EXTRA PO) Take by mouth. Active lisinopril (PRINIVIL,ZeSTRIL) 20 MG tablet Take 1 tablet (20 mg total) by mouth nightly. Active tadalafil (CIALIS) 20 MG tabletIndications: Erectile dysfunction after radical prostatectomy Take 1 tablet (20 mg total) by mouth daily as needed for erectile dysfunction. 30 tablet 1 2 Active Active Problems Problem Noted Date Diagnosed Date Essential hypertension 05/01/2019 Sandoval's esophagus 09/11/2018 Hypertensive disorder 09/11/2018 History of malignant neoplasm of prostate 2017 Iron deficiency anemia 09/11/2018 Immunizations Immunization Administration Dates Next Due Influenza Inactivated/Split Preservative [...] Recorded Sex Assigned at Not on file Legal Sex Male 11:56 AM EDT Gender Identity Not on file Sexual Orientation Not on file Last Filed Vital Signs Vital Sign Reading Time Taken Comments Blood Pressure 128/84 08/29/2017 10:37 AM EST Pulse - - Temperature 36.4 C (97.6 F) 08/23/2022 12:21 PM EST Respiratory Rate 16 08/18/2021 11:15 AM EST Oxygen Saturation - - Inhaled Oxygen Concentration - - Weight 90.7 kg (200 lb) 08/23/2022 12:21 PM EST Height 172.7 cm (5' 8 ) 08/23/2022 12:21 PM EST Body Mass Index 30.41 08/23/2022 12:21 PM EST Plan of Treatment Health Maintenance Due Date Last Done Comments Advance Care Planning 1940 Zoster (Shingles) Vaccine (2 of 2) 05/20/2012 03/25/2012 RSV Vaccine 50 years and older and Patients (1 - 1-dose 75+ series) 2017 Influenza Vaccine 04/25/2025 05/31/2019, 05/18/2018 COVID-19 Vaccine (1 - 2023-2 5 season) 2025 DTaP/Tdap/Td Vaccines (2 - T d or Tdap) 05/31/2029 05/31/2019 Pneumococcal Vaccines 50+ Completed 2014, 05/26/2012 Hepatitis B Vaccines Aged Out No long er eligible based on patient's age to complete this topic Insurance LYNDON ROJAS [id number] MEDICARE PART A & B [facility] Care Teams Colored Leather Setter Relationship Specialty Start Date End Date Ruby Luna MD [address] [place] [address] Dr Anoop [place] [id number] PCP - General Internal Medicine 08/13/20
--- OUTSIDE RECORDS SUMMARY | 2025-07-15 16:02 | XMS_ITS | Encounter Summary ---
Author Organization [facility] Address [address] [place] [address] Care Team Providers Care Reactor Operator Name Role Phone Pcp, Brandi Primary Care Provider Brenton Card MD Primary Care Provider [phone] Axel Medina DO Primary Care Provider [phone] Ruby Luna MD Primary Care Provider [phone] Encounter Details Date Type Department Care Team (Late st Contact Info) Description 07/13/2016 [facility] Urologic Surgery [address] [place] [address] Hakeem Mcdaniel APRN [address] [address] Social History Tobacco Use Types Packs/Day Years [...] on filedocumented in this encounter Care Teams Reactor Operator Relationship Specialty Start Date End Date Pcp, No PCP - General General Medicine 07/20/16 11/06/16 Brenton Rosas MD [address] [place] [address] Dr Cifuentes[place]NDON anne [address] PCP - General 11/07/16 08/28/17 Axel Medina DO [address] [place] [address] [place] [address] PCP - General 08/29/17 08/12/20 Ruby Luna MD [address] [facility] [place] [address] PCP - General Internal Medicine 08/13/20 documented as of this encounter
--- OUTSIDE RECORDS SUMMARY | 2025-07-15 16:02 | XMS_ITS ---
Author Name [facility] Organization Unknown History of Medication Use Medication Directions Dispensed Refills Start Date End Date Stat tadalafil (CIALIS) 20 MG tablet Take 1 tablet (20 mg total) by mouth daily as needed for erectile dysfunction. 08/18/2021 08/23/2022 active lisinopril-hydrochloro thiazide (PRINZIDE,ZESTORETIC) 20-25 MG per tablet Take 1 tablet by mouth daily. 07/28/2019 active nystatin (MYCOSTATIN) 377532 UNIT/GM cream Apply topically 2 (two) times a day. 08/29/2018 active sildenafil (REVATIO) 20 MG tablet Take 1 tablet (20 mg total) by mouth as needed (Take 3 tabs (20 mg each) 1 hr prior to sexual activity, May taken additional 1-2 tabs not to exceed 5 tabs (100 mg total) in a 24hrs period.). Take 3 tabs (20 mg each) 1 hr prior to sexual activity, May taken additional 1-2 tabs not to exceed 5 tabs (1 08/31/2017 08/23/2022 aborted ascorbic acid (VITAMIN C) 500 MG tablet Take 1 tablet (500 mg total) by mouth daily. active cholecalciferol (VITAMIN D3) 1000 units capsule Take 1 capsule (1,000 Units total) by mouth daily. active ferrous sulfate 325 (65 FE) MG tablet Take 325 mg by mouth daily. Take 2 hours before or 4 hours after acid reducers. active lisinopril (PRINIVIL,ZeSTRIL) 20 MG tablet Take 1 tablet (20 mg total) by mouth nightly. active LORazepam (ATIVAN) 0.5 MG tablet Take 1 tablet (0.5 mg total) by mouth once as needed for anxiety. active magnesium gluconate (MAGONATE) 500 (27 MG) MG tablet Take 500 mg by mouth 2 (two) times a day. active Multiple Vitamins-Minerals (OCUVITE EXTRA PO) Take by mouth. ac tive OMEprazole (PriLOSEC) 20 MG capsule Take 1 capsule (20 mg total) by mouth every morning before breakfast. active Allergies Allergen Reaction Severity Comment Documented Date Source Statu s SULFA ANTIBIOTICS UNKNOWN/PATIEN T AND FAMILY UNABLE TO DEFINE Moderate 08/28/2019 [facility] active RED DYE GI INTOLERANCE/NA USEA/VOMITING Mild 08/29/2017 [facility] active SULFAMETHOXAZOLE-T RIMETHOPRIM OTHER (SEE COMMENTS) Unable to describe 11/07/2016 [facility] active IODINATED DIAGNOSTIC AGENTS UNKNOWN/PATIEN T AND FAMILY UNABLE TO DEFINE Moderate [facility] Problems Problem Status Onset Date Problem Type Date of Resolution Source History of prostate cancer active EncounterDiagnosisAct [facility] Erectile dysfunction after radical prostatectomy active EncounterDiagnosisAct [facility] Encounters Encounter Type Encounter Reason Primary Diagnosis Location Date Ambulatory Personal history of malignant neoplasm of prostate [facility] 08/23/2022 Ambulatory Personal history of malignant neoplasm of prostate [facility] 08/18/2021 Care Team Organization Name Specialty Phone Email Start Date End [facility] [employer] [facility] 08/23/2022 [facility] EV[facility]IA Primary [facility] 08/18/2021 08/18/2021
--- OUTSIDE RECORDS SUMMARY | 2025-07-15 16:02 | XMS_ITS | Data Portability ---
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 Plan: Pathophysiology of CMC and wrist arthritis have been reviewed. Treatment options have been reviewed. He did well with a cortisone injection in the past and would like to try the same today. Left thumb CMC joint injection is performed today. He understands the option of surgical treatment when all conservative measures have been exhausted. We have briefly discussed what would be involved with the surgery and the anticipated recovery. Will call for follow-up of this problem on an as-needed basis. [email or web address] Not available 02/03/2025 14:09:32 Plan of Treatment Reminders Order Date Submit Date Provider Last Modified By Organization Details Last Modified Time Details Appointments None record ed. Lab None record ed. Referral None record ed. Procedures None record ed. Surgeries None record ed. Imaging XR, hand, 3 or more view - UC 1- 3V L TMJ 025 02/04/20 25 [facility], [address], [facility] [address], [place], [address], 5 15:52:11 Medication Orders None record ed. Patient TargetsNo targets recorded. Patient InstructionsNo instructions recorded. Reason for Referral None Reported. Results Created Date Observation Date Name Description Value Unit Range Abnormal Flag Note LastModifiedBy Organization Detail LastModifiedTime 02/04/20 25 02/03/2025 XR, hand, 3 or more view http:/ [email or web address] ?Encry pted=s hAaTro YD8dLq bEUv6g %2BXZw aYqtaq 0bqfl% 2Fg9IQ a4ajBk vP9nXo QUaueC m3YtLR FvZlgJ JJ8mAn HZtai3 8w8609 AC0Kla nSEUqW iKiQtr MwF INTERFACE [facility] [address], [address], 02/03/2025 13:35:12 02/04/20 25 02/03/2025 XR, hand, 3 or more view [email or web address]:/ [email or web address] ?Encry pted=s SinanaTro YD8dLq bEUv6g %2BXZw aYqtaq 0bqfl% 2Fg9IQ a4ajBk vP9nXo QUaueC m3YtLR FvZlgJ JJ8mAn HZtai3 3k5368 AC0Kla nSEUqW iKiQtr MwF INTERFACE [facility] [address], [address], 02/03/2025 13:35:14 Result Notes Documentation Provider Name and Address Organization Details Recorded Time Xr, Hand, 3 Or More View : [email or web address] Encrypted=fgXoJijGV0yWhjG Uv6g%2IZXteXufnc3dkdi%2Fg 7QWb9ytQxtQ4sPoNUzrcHt4Ud FKCeOyqLPP4nCvCWkjs28t269 1TO3WkgqLJSkGtWeCrrMvT Not Available [facility] 02/03/2025 13:35: 13 Xr, Hand, 3 Or More View : [email or web address] Encrypted=teDvJdzRH0wVdkE Uv6g%8ZGSibFfxjr5bdhc%2Fg 1TFd2scPsvJ0gTiHAeyuBz8Ju QVUnClkLMG3iSjJVzko98r388 5GJ8BahrKGNpJeYkRdbThO Not Available On license of [facility] 02/03/2025 13:35: 14 Problems Name Problem SNOMED Code Status Onset Date Resolution Date Notes Provider Name and Address Organization Details Recorded Time Pain of right shoulder joint 003961006987 66642 Active 2016 Problem Code: M25.511; Problem Code Type: ICD-10; Status: 'A'; Not Available On license of [facility] 4 11:58:45 Problem Notes None recorded. Procedures Surgical History Date Name Laterality Status Provider Name and Address Organization Details Recorded Time 5 [facility] [place] completed Lynn Seymour MD [address] [place] [address] [address], [place], [address], [facility] 02/03/2025 13:42:58 Imaging Results None recorded. Procedure Notes None recorded. Medical Equipment None Reported. Allergies Allergen ID Allergen Name Allergen Category Reaction Reaction Severity Criticality Documentation Date Start Date Code Code System Note Provider Name and Address Organization Details Recorded Time 052599 Bactrim medicatio n Not available Not available Not available 11/27/20232004 24336 9 RxNorm Aller gyRea ction : 'Skin React ion'; Not Available On license of [facility] 4 16:01:40 835155 Iodinated contrast media (substanc e) medicatio n Not available Not available Not available 11/27/20232020 13403 2004 SNOMED Aller gyNam e: 'Ivp Dye'; Not Available On license of [facility] 4 16:01:40 Medications Name Sig Start Date Stop Date Status Note LastModified by Organization Details LastModified Time lisinopril 20 mg tablet TAKE 1 TABLET BY MOUTH EVERYDAY AT BEDTIME active Not Available Not Available N ot Available lorazepam 0.5 mg tablet TAKE 1 TABLET BY MOUTH AT BEDTIME NEEDED FOR ANXIETY FOR 90 DAYS active Not Available Not Available No t Available omeprazole 20 mg capsule,juan yed release TAKE 1 CAPSULE BY MOUTH EVERY MORNING active Not Available Not Available No t Available lisinopril 20 mg-hydrochlo rothiazide 25 mg tablet TAKE 1 TABLET BY MOUTH EVERY MORNING active Not Available Not Available No t Available Vitals Date Recorded Body height Body mass index (BMI) Body weight Provider Name and Address Organization Details Last Updated DateTime 02/03/2025 172.72 cm 29.5 kg/m2 19739.92 g MALINDA SUNDEEP MD - [facility] 02/03/2025 13:28:35 Social History None recorded. Functional Status None recorded. Mental Status None recorded. Family History Nothing Reported. Medical History No medical history recorded. Past Encounters Encounter ID Performer Location Encounter Start Date Encounter Closed Date Diagnosis/Indication Diagnosis SNOMED-CT Code Diagnosis ICD10 Code Diagnosis IMO Codes Diagnosis Note [id number] MD KELIN Dela Cruz [address] [place] [address] 02/03/2025 13:14:12 02/05/2025 15:52:11 Pain of left hand 4922328253 76661 M79.642 418072 Osteoarthr osis of the carpometacarpal joint of the thumb 59588900 M18.12 1681406 Health Concerns Section Related Observation LastModified by Organization Detai ls LastModified Time None Recorded Concern Status LastModified by Organization Details LastModified Time None Recorded Advance Directives Directive None Recorded Payers Insurance Date Sequence Insurance Name Policy Number Policy Denny Covered Member ID Denny Member ID Guarantor Name 02/05/2025 2 [place] [id number] Randal Nguyen [id number] Randal Nguyen 02/05/2025 1 [place] [id number] Randal Nguyen [id number] Randal Nguyen Notes Date Note Type Note Provider Name and Address Organization Details Recorded Time 02/03/2025 text/html ROS as noted in the HPI Patient is an 84-year-old RHD male seen as a transfer of [facility] for evaluation of left thumb pain. Prev cortisone injection a couple of years ago. 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 He recalls the prior injection being effective for some time. Hoping for the same today. Lynn Seymour MD [address] [place] [address] [address], [place], [address], [facility] 02/03/2025 14:10:12
== END 2025-07-15 13:08 | disposition home or self-care (01) ==
LOC: HO.HMCH 12:30
PROVIDERS: PCP Internal Medicine; Visit Provider Internal Medicine
DX: Z00.00 Encounter for general adult medical examination without abnormal findings (principal); D64.9 Anemia, unspecified; C61 Malignant neoplasm of prostate; K76.0 Fatty (change of) liver, not elsewhere classified; K22.70 Barrett's esophagus without dysplasia; I10 Essential (primary) hypertension; F41.1 Generalized anxiety disorder